=== PATIENT | female | born 1975 | race Caucasian/White ===

== ENCOUNTER 2016-07-23 11:15 | Emergency (ER) | payer MEDICARE, MEDICAID ==
[2016-07-23 11:32] VITALS: BP 135/85
[2016-07-23] MEDS ORDERED: Ondansetron 4 MG/2 ML SDV IVPUSH ONE (11:55)
[2016-07-23] MEDS ORDERED: LORazepam 2 MG/ML MDV IVPUSH ONE (11:55)
--- NOTE | 2016-07-23 11:58 | EDM.PDOC ---
ED HPI ALTERED MENTAL STATUS - General Chief Complaint: Drug or Alcohol Abuse Stated Complaint: BEEN DRINKING PAST 10 DAYS WHISKY Time Seen by Provider: 07/23/16 11:56 Source: Reports: Patient History Limitations: Reports: No limitations - History of Present Illness INITIAL COMMENTS - FREE TEXT/NARRATIVE: Pt hs been drinking fpr the past 10 days about a liter per day. She is vomiting and she fels like she is withdrawing. She last drank last nite. Baseline Mental Status: Reports: alert/oriented, agitated Timing/Duration: Reports: Hour(s):, Getting worse Context: Reports: drug/ETOH abuse - Related Data Allergies/ADRs: Allergies metal Allergy (Uncoded 05/22/14 12:36) Rash Home Meds: Home Meds ALPRAZolam [Xanax] 1.5 mg PO TID 05/22/14 [History] Acetaminophen [Tylenol Arthritis Pain] 650 mg PO Q6HR PRN 05/22/14 [History] Albuterol Sulfate 1.25 mg IH ASDIRECTED PRN 05/22/14 [History] Lala/Cell/Lipas/Malt/Prt/Lac/in [Digestive Enzymes] 1 each PO DAILY 05/22/14 [ History] Cholecalciferol (Vitamin D3) [Vitamin D3] 2,000 unit PO DAILY 05/22/14 [History] ClonazePAM [KlonoPIN] 1 mg PO BEDTIME 05/22/14 [History] Cyanocobalamin (Vitamin B12) [Vitamin B12] 1,000 mcg IJ ASDIRECTED 05/22/14 [ History] Cyclobenzaprine [Flexeril] 10 mg PO Q8HR PRN 05/22/14 [History] FLUoxetine [PROzac] 80 mg PO DAILY 05/22/14 [History] Ferrous Fumarate-Vit J890-550 1 tab PO DAILY 05/22/14 [History] Fluticasone Propionate [Flonase] 1 spray TOP ASDIRECTED PRN 05/22/14 [History] Folic Acid 1 mg PO DAILY 05/22/14 [History] Furosemide [Lasix] 40 mg PO ASDIRECTED 05/22/14 [History] Furosemide [Lasix] 80 mg PO BID 05/22/14 [History] Gabapentin [Neurontin] 1,600 mg PO TID 05/22/14 [History] K-Dur 20meq 1 tab PO DAILY 05/22/14 [History] Meclizine [Antivert] 25 mg PO TID PRN 05/22/14 [History] Mirtazapine [Remeron] 15 mg PO ASDIRECTED PRN 05/22/14 [History] Omeprazole [Prilosec] 40 mg PO DAILY 05/22/14 [History] Polyethylene Glycol 3350 [MiraLAX] 17 gm PO DAILY 05/22/14 [History] Reti-A 0.1% 1 dose TOP BEDTIME 05/22/14 [History] Spironolactone [Aldactone] 100 mg PO DAILY 05/22/14 [History] Sucralfate [Carafate] 0.5 gm PO QID 05/22/14 [History] Thiamine Mononitrate [Vitamin B-1] 100 mg PO BEDTIME 05/22/14 [History] Triamcinolone Acetonide [Kenalog 0.1% Crm] 80 gm .XX ASDIRECTED 05/22/14 [ History] Vitamin B Complex [B Complex] 1 tab PO DAILY 05/22/14 [History] Zolpidem [Ambien] 20 mg PO BEDTIME PRN 05/22/14 [History] buPROPion HCl [Wellbutrin Xl] 300 mg PO DAILY 05/22/14 [History] fentaNYL [Duragesic] 50 mcg TD Q48H 05/22/14 [History] fentaNYL [Duragesic] 100 mcg TD Q48H 05/22/14 [History] lamoTRIgine [Lamictal] 200 mg PO DAILY 05/22/14 [History] oxyCODONE HCl [Oxycodone HCl] 20 mg PO Q6HR PRN 05/22/14 [History] Mirtazapine [Remeron] 30 mg PO BEDTIME 09/25/15 [History] Aspirin 325 mg PO DAILY 07/23/16 [History] Diclofenac Sodium [Voltaren 1% Gel] 1 dose TOP ASDIRECTED 07/23/16 [History] Linaclotide [Linzess] 145 mcg PO DAILY 07/23/16 [History] Sennosides [Senna] 8.6 oz PO DAILY 07/23/16 [History] Past Medical History Cardiovascular History: Reports: Heart Failure Respiratory History: Reports: Asthma Musculoskeletal History: Reports: Fracture Neurological History: Reports: Brain injury, Seizure Psychiatric History: Reports: ADD, Addiction, Bipolar, Depression - Infectious Disease History Infectious Disease History: Reports: Chicken pox, MRSA - Past Surgical History Other Musculoskeletal Surgeries/Procedures:: broken back and hips. Surgery to both. Social & Family History - Tobacco Use Smoking Status *Q: Never Smoker Years of Tobacco use: 25 Second Hand Smoke Exposure: No - Caffeine Use Caffeine Use: Reports: Soda - Alcohol Use Days Per Week of Alcohol Use: 7 Number of Drinks Per Day: 10 Total Drinks Per Week: 70 Date of Last Drink: 07/22/16 - Recreational Drug Use Recreational Drug Use: No ED ROS GENERAL - Review of Systems Review Of Systems: See Below Constitutional: Reports: no symptoms HEENT: Reports: No symptoms Respiratory: Reports: No Symptoms Cardiovascular: Reports: No symptoms Endocrine: Reports: no symptoms GI/Abdominal: Reports: Nausea, Vomiting : Reports: no symptoms Musculoskeletal: Reports: no symptoms Skin: Reports: no symptoms Neurological: Reports: Dizziness - Physical Exam Exam: See Below Text/Narrative:: Pt arrived with admitting to sig withdral from etoh. Exam Limited By: Intoxication General Appearance: alert, anxious, mild distress Ears: normal TMs Nose: normal inspection Throat/Mouth: Normal inspection Head Exam: atraumatic Neck: normal inspection Respiratory/Chest: no respiratory distress Cardiovascular: regular rate, rhythm GI/Abdominal: soft, non tender Rectal (Female) Exam: Deferred Neuro Exam (Abbreviated): alert, oriented, normal cognition Back Exam: normal inspection Extremities: normal inspection Psychiatric: anxious, tearful Course - Vital Signs Last Recorded V/S: Last Vital Signs Temp 37.1 C 07/23/16 11:36 Pulse 124 H 07/23/16 11:36 Resp 17 07/23/16 11:36 BP 135/85 07/23/16 11:36 Pulse Ox 95 07/23/16 11:36 - Orders/Labs/Meds Orders: Active Orders 24 hr Category Date Time Status EKG Documentation Completion [RC] ASDIRECTED Care 07/23/16 11:53 Active Sodium Chloride 0.9% [Normal Saline] 1,000 ml Med 07/23/16 12:00 Active IV ASDIRECTED Sodium Chloride 0.9% [Normal Saline] 1,000 ml Med 07/23/16 12:45 Active IV ASDIRECTED EKG 12 Lead [EK] Routine Ther 07/23/16 11:53 Ordered Medication Orders Sodium Chloride (Normal Saline) 1,000 mls @ 999 mls/hr IV ASDIRECTED [facility] Last Admin: 07/23/16 12:14 Dose: 999 mls/hr Sodium Chloride (Normal Saline) 1,000 mls @ 999 mls/hr IV ASDIRECTED [facility] Labs: Laboratory Tests 07/23/16 07/23/16 07/23/16 Range/Units 12:03 12:03 12:03 WBC 4.8 (4.5-11.0) K/uL RBC 4.55 (3.30-5.50) M/uL Hgb 14.0 (12.0-15.0) g/dL Hct 41.2 (36.0-48.0) % MCV 91 (80-98) fL MCH 31 (27-31) pg MCHC 34 (32-36) % Plt Count 356 (150-400) K/uL Neut % (Auto) 70 H (36-66) % Lymph % (Auto) 21 L (24-44) % Hughes % (Auto) 6 (2-6) % Eos % (Auto) 0 L (2-4) % Baso % (Auto) 3 H (0-1) % Sodium 141 (140-148) mmol/L Potassium 3.6 (3.6-5.2) mmol/L Chloride 96 L (100-108) mmol/L Carbon Dioxide 23 (21-32) mmol/L Anion Gap 25.6 H (5.0-14.0) mmol/L BUN 7 (7-18) mg/dL Creatinine 0.7 (0.6-1.0) mg/dL Est Cr Clr Drug Dosing TNP Estimated GFR (MDRD) > 60 (>60) Glucose 117 H (74-106) mg/dL Calcium 8.7 (8.5-10.1) mg/dL Total Bilirubin 0.5 (0.2-1.0) mg/dL AST 159 H D (15-37) U/L ALT 68 (12-78) U/L Alkaline Phosphatase 269 H D (46-116) U/L Total Protein 7.9 (6.4-8.2) g/dL Albumin 4.2 (3.4-5.0) g/dL Globulin 3.7 H (2.3-3.5) g/dL Albumin/Globulin Ratio 1.1 L (1.2-2.2) Urine Color Urine Appearance Urine pH (4.5-8.0) Ur Specific Martha (1.008-1.030) Urine Protein (NEGATIVE) mg/dL Urine Glucose (UA) (NEGATIVE) mg/dL Urine Ketones (NEGATIVE) mg/dL Urine Occult Blood (NEGATIVE) Urine Nitrite (NEGATIVE) Urine Bilirubin (NEGATIVE) Urine Urobilinogen (NORMAL) mg/dL Ur Leukocyte Esterase (NEGATIVE) Urine RBC (0-5) Urine WBC (0-5) Ur Epithelial Cells Amorphous Sediment Urine Bacteria Urine Mucus Urine Opiates Screen (NEGATIVE) Ur Oxycodone Screen (NEGATIVE) Urine Methadone Screen (NEGATIVE) Ur Propoxyphene Screen (NEGATIVE) Ur Barbiturates Screen (NEGATIVE) Ur Tricyclics Screen (NEGATIVE) Ur Phencyclidine Scrn (NEGATIVE) Ur Amphetamine Screen (NEGATIVE) U Methamphetamines Scrn (NEGATIVE) Urine MDMA Screen (NEGATIVE) U Benzodiazepines Scrn (NEGATIVE) U Cocaine Metab Screen (NEGATIVE) U Marijuana (THC) Screen (NEGATIVE) Ethyl Alcohol 175 mg/dL 07/23/16 07/23/16 Range/Units 12:22 12:22 WBC (4.5-11.0) K/uL RBC (3.30-5.50) M/uL Hgb (12.0-15.0) g/dL Hct (36.0-48.0) % MCV (80-98) fL MCH (27-31) pg MCHC (32-36) % Plt Count (150-400) K/uL Neut % (Auto) (36-66) % Lymph % (Auto) (24-44) % Hughes % (Auto) (2-6) % Eos % (Auto) (2-4) % Baso % (Auto) (0-1) % Sodium (140-148) mmol/L Potassium (3.6-5.2) mmol/L Chloride (100-108) mmol/L Carbon Dioxide (21-32) mmol/L Anion Gap (5.0-14.0) mmol/L BUN (7-18) mg/dL Creatinine (0.6-1.0) mg/dL Est Cr Clr Drug Dosing Estimated GFR (MDRD) (>60) Glucose (74-106) mg/dL Calcium (8.5-10.1) mg/dL Total Bilirubin (0.2-1.0) mg/dL AST (15-37) U/L ALT (12-78) U/L Alkaline Phosphatase (46-116) U/L Total Protein (6.4-8.2) g/dL Albumin (3.4-5.0) g/dL Globulin (2.3-3.5) g/dL Albumin/Globulin Ratio (1.2-2.2) Urine Color Yellow Urine Appearance Clear Urine pH 5.0 (4.5-8.0) Ur Specific Martha 1.020 (1.008-1.030) Urine Protein 30 H (NEGATIVE) mg/dL Urine Glucose (UA) Normal (NEGATIVE) mg/dL Urine Ketones 150 H (NEGATIVE) mg/dL Urine Occult Blood Moderate (NEGATIVE) Urine Nitrite Negative (NEGATIVE) Urine Bilirubin Negative (NEGATIVE) Urine Urobilinogen Normal (NORMAL) mg/dL Ur Leukocyte Esterase Negative (NEGATIVE) Urine RBC 0-5 (0-5) Urine WBC 0-5 (0-5) Ur Epithelial Cells Moderate Amorphous Sediment Not seen Urine Bacteria Rare Urine Mucus Moderate Urine Opiates Screen Negative (NEGATIVE) Ur Oxycodone Screen Positive H (NEGATIVE) Urine Methadone Screen Negative (NEGATIVE) Ur Propoxyphene Screen Negative (NEGATIVE) Ur Barbiturates Screen Negative (NEGATIVE) Ur Tricyclics Screen Negative (NEGATIVE) Ur Phencyclidine Scrn Negative (NEGATIVE) Ur Amphetamine Screen Negative (NEGATIVE) U Methamphetamines Scrn Negative (NEGATIVE) Urine MDMA Screen Negative (NEGATIVE) U Benzodiazepines Scrn Positive H (NEGATIVE) U Cocaine Metab Screen Negative (NEGATIVE) U Marijuana (THC) Screen Negative (NEGATIVE) Ethyl Alcohol mg/dL Meds: Medications Generic Name Dose Route Start Last Admin Trade Name Freq PRN Reason Stop Dose Admin Sodium Chloride 1,000 mls @ 999 mls/hr 07/23/16 12:00 07/23/16 12:14 Normal Saline IV 999 mls/hr ASDIRECTED DANILO Administration Sodium Chloride 1,000 mls @ 999 mls/hr 07/23/16 12:45 Normal Saline IV ASDIRECTED DANILO Discontinued Medications Generic Name Dose Route Start Last Admin Trade Name Freq PRN Reason Stop Dose Admin Lorazepam 1 mg 07/23/16 11:55 07/23/16 12:10 Ativan IVPUSH 07/23/16 11:56 1 mg ONETIME ONE Administration Ondansetron HCl 4 mg 07/23/16 11:55 07/23/16 12:13 Zofran IVPUSH 07/23/16 11:56 4 mg ONETIME ONE Administration - Re-Assessments/Exams Free Text/Narrative Re-Assessment/Exam: 07/23/16 13:32 pt was given 2 liters of fluid, ativan 1 mg, zoforan 4 mg. She is feeling better. She does not want to go to detox. Departure - Departure Time of Disposition: 13:33 Disposition: Home, Self-Care 01 Condition: fair Clinical Impression: ETOH abuse Forms: ED Department Discharge Care Plan Goals: push fluids, zoforan 4 mg q6h prn for nausea, ativan 1 mg q6h prn for agitation # 8. Rtc if problems. - My Orders Last 24 Hours: My Active Orders 07/23/16 11:53 EKG Documentation Completion [RC] ASDIRECTED EKG 12 Lead [EK] Routine 07/23/16 12:00 Sodium Chloride 0.9% [Normal Saline] 1,000 ml IV ASDIRECTED 07/23/16 12:45 Sodium Chloride 0.9% [Normal Saline] 1,000 ml IV ASDIRECTED - Assessment/Plan Last 24 Hours: My Active Orders 07/23/16 11:53 EKG Documentation Completion [RC] ASDIRECTED EKG 12 Lead [EK] Routine 07/23/16 12:00 Sodium Chloride 0.9% [Normal Saline] 1,000 ml IV ASDIRECTED 07/23/16 12:45 Sodium Chloride 0.9% [Normal Saline] 1,000 ml IV ASDIRECTED
[2016-07-23] MEDS ORDERED: Sodium Chloride 0.9% 1,000 ML IV SCH ×2 (12:00→12:45)
== END 2016-07-23 13:49 | disposition home or self-care (01) ==
LOC: JP.ED 11:15
DX: F10.10 Alcohol abuse, uncomplicated (principal); I50.9 Heart failure, unspecified; J45.909 Unspecified asthma, uncomplicated; F32.9 Major depressive disorder, single episode, unspecified; F31.9 Bipolar disorder, unspecified; Z98.890 Other specified postprocedural states; Z79.82 Long term (current) use of aspirin; Z79.899 Other long term (current) drug therapy; Z91.048 Other nonmedicinal substance allergy status; Y90.6 Blood alcohol level of 120-199 mg/100 ml
CPT/HCPCS: 36415; 80053; 80305; 81001; 85025; 93005; 93010; 96361; 96374; 96375; 99284; G0480; J2060; J2405; J7040

== ENCOUNTER 2016-10-25 17:34 | Inpatient (IN) | payer MEDICARE, MEDICAID ==
[2016-10-25] MEDS ORDERED: Ketorolac 30 MG/ML SDV IVPUSH ONE (18:04)
[2016-10-25] MEDS ORDERED: Sodium Chloride 0.9% 10 ML Syringe FLUSH PRN ×2 (18:04→18:47)
[2016-10-25] MEDS ORDERED: Ondansetron 4 MG/2 ML SDV IVPUSH ONE ×2 (18:07→20:24)
[2016-10-25] MEDS ORDERED: Iopamidol 612 MG/ML 100 ML Bottle IV PRN (18:47)
[2016-10-25] MEDS ORDERED: Sodium Chloride 0.9% 100 ML IV SCH (19:00)
[2016-10-25] MEDS ORDERED: Sodium Chloride 0.9% 1,000 ML IV ONE (19:29)
[2016-10-25] MEDS ORDERED: HYDROmorphone 1 MG/ML Syringe IVPUSH ONE (19:38)
--- NOTE | 2016-10-25 20:32 | EDM.PDOC ---
ED HPI GENERAL MEDICAL PROBLEM - General Chief Complaint: Gastrointestinal Problem Stated Complaint: NAUSEA,VOMITING,DIARRHEA Time Seen by Provider: 10/25/16 19:30 Source of Information: Reports: Patient History Limitations: Reports: No Limitations - History of Present Illness INITIAL COMMENTS - FREE TEXT/NARRATIVE: Heather is a 41 year old female who presents to the ED today with c/o increasing abdominal pain, nausea and vomiting. I saw this patient this morning, she presented with milder symptoms was treated with IV fluids, zofran and toradol, reported she felt much better and was discharged home. Blood work this morning showed a normal white count. Patient reports that she felt better until about an hour after she got home at which time she had worsening upper abdominal pain and worsening nausea/vomiting. Patient continues to deny fever. Patient has issues with chronic pain and is on large amounts of Oxycodone daily as well as Fentanyl patches. Abdomen Pain Score (Numeric/FACES): 8 - Related Data Allergies Allergy/AdvReac Type Severity Reaction Status Date / Time metal Allergy Rash Uncoded 10/25/16 17:56 Home Meds: Home Meds ALPRAZolam [Xanax] 1.5 mg PO TID 05/22/14 [History] Acetaminophen [Tylenol Arthritis Pain] 650 mg PO Q6HR PRN 05/22/14 [History] Albuterol Sulfate 1.25 mg IH ASDIRECTED PRN 05/22/14 [History] Lala/Cell/Lipas/Malt/Prt/Lac/in [Digestive Enzymes] 1 each PO DAILY 05/22/14 [ History] Cholecalciferol (Vitamin D3) [Vitamin D3] 2,000 unit PO DAILY 05/22/14 [History] ClonazePAM [KlonoPIN] 1 mg PO BEDTIME 05/22/14 [History] Cyanocobalamin (Vitamin B12) [Vitamin B12] 1,000 mcg IJ ASDIRECTED 05/22/14 [ History] Cyclobenzaprine [Flexeril] 10 mg PO Q8HR PRN 05/22/14 [History] FLUoxetine [PROzac] 80 mg PO DAILY 05/22/14 [History] Ferrous Fumarate-Vit L121-086 1 tab PO DAILY 05/22/14 [History] Fluticasone Propionate [Flonase] 1 spray TOP ASDIRECTED PRN 05/22/14 [History] Folic Acid 1 mg PO DAILY 05/22/14 [History] Furosemide [Lasix] 40 mg PO ASDIRECTED 05/22/14 [History] Furosemide [Lasix] 80 mg PO BID 05/22/14 [History] Gabapentin [Neurontin] 1,600 mg PO TID 05/22/14 [History] K-Dur 20meq 1 tab PO DAILY 05/22/14 [History] Meclizine [Antivert] 25 mg PO TID PRN 05/22/14 [History] Mirtazapine [Remeron] 15 mg PO ASDIRECTED PRN 05/22/14 [History] Omeprazole [Prilosec] 40 mg PO DAILY 05/22/14 [History] Polyethylene Glycol 3350 [MiraLAX] 17 gm PO DAILY 05/22/14 [History] Reti-A 0.1% 1 dose TOP BEDTIME 05/22/14 [History] Spironolactone [Aldactone] 100 mg PO DAILY 05/22/14 [History] Sucralfate [Carafate] 0.5 gm PO QID 05/22/14 [History] Thiamine Mononitrate [Vitamin B-1] 100 mg PO BEDTIME 05/22/14 [History] Triamcinolone Acetonide [Kenalog 0.1% Crm] 80 gm .XX ASDIRECTED 05/22/14 [ History] Vitamin B Complex [B Complex] 1 tab PO DAILY 05/22/14 [History] Zolpidem [Ambien] 20 mg PO BEDTIME PRN 05/22/14 [History] buPROPion HCl [Wellbutrin Xl] 300 mg PO DAILY 05/22/14 [History] fentaNYL [Duragesic] 50 mcg TD Q48H 05/22/14 [History] fentaNYL [Duragesic] 100 mcg TD Q48H 05/22/14 [History] lamoTRIgine [Lamictal] 200 mg PO DAILY 05/22/14 [History] oxyCODONE HCl [Oxycodone HCl] 20 mg PO Q6HR PRN 05/22/14 [History] Mirtazapine [Remeron] 30 mg PO BEDTIME 09/25/15 [History] Aspirin 325 mg PO DAILY 07/23/16 [History] Diclofenac Sodium [Voltaren 1% Gel] 1 dose TOP ASDIRECTED 07/23/16 [History] Linaclotide [Linzess] 145 mcg PO DAILY 07/23/16 [History] Sennosides [Senna] 8.6 oz PO DAILY 07/23/16 [History] Past Medical History Cardiovascular History: Reports: Heart Failure Respiratory History: Reports: Asthma 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 History: Reports: Renal Calculus [employer]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 Surgery to both. Social & Family History - Tobacco Use Smoking Status *Q: Former Smoker Years of Tobacco use: 25 Used Tobacco, but Quit: Yes Month Tobacco Last Used: 5 years Second Hand Smoke Exposure: No - Caffeine Use Caffeine Use: Reports: Soda - Alcohol Use Days Per Week of Alcohol Use: 7 Number of Drinks Per Day: 10 Total Drinks Per Week: 70 - Recreational Drug Use Recreational Drug Use: No ED ROS GENERAL - Review of Systems Review Of Systems: See Below Constitutional: Reports: Decreased Appetite HEENT: Reports: No Symptoms Respiratory: Reports: No Symptoms Cardiovascular: Reports: No Symptoms Endocrine: Reports: No Symptoms GI/Abdominal: Reports: Abdominal Pain, Nausea, Vomiting : Reports: No Symptoms Musculoskeletal: Reports: No Symptoms Skin: Reports: No Symptoms Neurological: Reports: No Symptoms ED EXAM, GI/ABD - Physical Exam Exam: See Below Exam Limited By: No Limitations General Appearance: Alert, WD/WN, Moderate Distress Throat/Mouth: Normal Oropharynx Head: Atraumatic Neck: Normal Inspection Respiratory/Chest: No Respiratory Distress, Lungs Clear Cardiovascular: No Murmur, Tachycardia GI/Abdominal: Normal Bowel Sounds, Soft, Tenderness, Other (Mid abdominal tenderness on exam) Extremities: Normal Inspection. No: Increased Warmth Neurological: Alert, Oriented Psychiatric: Anxious, Tearful Skin Exam: Warm, Dry, Intact Course - Vital Signs Text/Narrative:: Heather is a 41 year old female who presents to the ED today with c/o worsening abdominal pain, nausea and vomiting since leaving here earlier today. Please refer to HPI and focused exam as well as prior ED visit. PIV re-established, blood work obtained, CT scan obtained. CT scan shows an acute pancreatitis, confirmed with lipase of 1037. White count continues to be normal. Potassium mildly low at 3.2. Amylase mildly elevated at 119. Patient was given IV dilaudid for pain, additional zofran for nausea, she will be admitted for ongoing pain control to observation, discussed with JENN Davies who has agreed to admit patient, patient updated on findings and plan of care and is in agreement. Patient will be admitted in stable condition. Last Recorded V/S: Last Vital Signs Temp 36.8 C 10/25/16 17:54 Pulse 109 H 10/25/16 17:54 Resp 16 10/25/16 17:54 BP 150/96 H 10/25/16 17:54 Pulse Ox 96 10/25/16 17:54 - Orders/Labs/Meds Orders: Active Orders 24 hr Category Date Time Status Peripheral IV Care [RC] . DIRECTED Care 10/25/16 18:04 Active Abdomen Pelvis w Cont [CT] Stat Exams 10/25/16 18:07 Taken DRUG SCREEN, URINE [URCHEM] Stat Lab 10/25/16 20:00 Uncollected UA W/MICROSCOPIC [URIN] Urgent Lab 10/25/16 20:00 Uncollected Iopamidol [Isovue-300 (61%)] Med 10/25/16 18:47 Active 100 ml IV . DIRECTED PRN Sodium Chloride 0.9% [Normal Saline] 1,000 ml Med 10/25/16 19:29 Active IV .BOLUS Sodium Chloride 0.9% [Normal Saline] 100 ml Med 10/25/16 19:00 Active IV ASDIRECTED Sodium Chloride 0.9% [Saline Flush] Med 10/25/16 18:04 Active 10 ml FLUSH ASDIRECTED PRN Sodium Chloride 0.9% [Saline Flush] Med 10/25/16 18:47 Active 10 ml FLUSH ASDIRECTED PRN Peripheral IV Insertion Adult [OM.PC] Routine Oth 10/25/16 18:04 Ordered Medication Orders Sodium Chloride (Normal Saline) 100 mls @ 3.5 mls/sec IV ASDIRECTED DANILO Last Admin: 10/25/16 19:03 Dose: 3.5 mls/sec Sodium Chloride (Normal Saline) 1,000 mls @ 999 mls/hr IV .BOLUS ONE Stop: 10/25/16 20:29 Iopamidol (Isovue-300 (61%)) 100 ml IV . DIRECTED PRN PRN Reason: RADIOLOGY EXAM Stop: 10/26/16 18:48 Last Admin: 10/25/16 19:03 Dose: 100 ml Sodium Chloride (Saline Flush) 10 ml FLUSH ASDIRECTED PRN PRN Reason: Keep Vein Open Last Admin: 10/25/16 18:25 Dose: 10 ml Sodium Chloride (Saline Flush) 10 ml FLUSH ASDIRECTED PRN PRN Reason: Keep Vein Open Stop: 10/25/16 23:00 Last Admin: 10/25/16 19:02 Dose: 10 ml Labs: Laboratory Tests 10/25/16 10/25/16 10/25/16 Range/Units 19:58 19:58 19:58 WBC 10.7 (4.5-11.0) K/uL RBC 4.21 (3.30-5.50) M/uL Hgb 13.3 (12.0-15.0) g/dL Hct 39.6 (36.0-48.0) % MCV 94 (80-98) fL MCH 32 H (27-31) pg MCHC 34 (32-36) % Plt Count 314 (150-400) K/uL Neut % (Auto) 78 H (36-66) % Lymph % (Auto) 16 L (24-44) % Montague % (Auto) 4 (2-6) % Eos % (Auto) 1 L (2-4) % Baso % (Auto) 1 (0-1) % Sodium 134 L (140-148) mmol/L Potassium 3.2 L (3.6-5.2) mmol/L Chloride 97 L (100-108) mmol/L Carbon Dioxide 30 (21-32) mmol/L Anion Gap 10.2 (5.0-14.0) mmol/L BUN 7 (7-18) mg/dL Creatinine 0.6 (0.6-1.0) mg/dL Est Cr Clr Drug Dosing 113.80 mL/min Estimated GFR (MDRD) > 60 (>60) Glucose 77 (74-106) mg/dL Calcium 9.0 (8.5-10.1) mg/dL Total Bilirubin 0.8 (0.2-1.0) mg/dL AST 107 H (15-37) U/L ALT 69 (12-78) U/L Alkaline Phosphatase 286 H (46-116) U/L Total Protein 6.6 (6.4-8.2) g/dL Albumin 3.4 (3.4-5.0) g/dL Globulin 3.2 (2.3-3.5) g/dL Albumin/Globulin Ratio 1.1 L (1.2-2.2) Amylase (25-115) U/L Lipase 1037 H (73-393) U/L Ethyl Alcohol mg/dL 10/25/16 10/25/16 Range/Units 20:04 20:04 WBC (4.5-11.0) K/uL RBC (3.30-5.50) M/uL Hgb (12.0-15.0) g/dL Hct (36.0-48.0) % MCV (80-98) fL MCH (27-31) pg MCHC (32-36) % Plt Count (150-400) K/uL Neut % (Auto) (36-66) % Lymph % (Auto) (24-44) % Montague % (Auto) (2-6) % Eos % (Auto) (2-4) % Baso % (Auto) (0-1) % Sodium (140-148) mmol/L Potassium (3.6-5.2) mmol/L Chloride (100-108) mmol/L Carbon Dioxide (21-32) mmol/L Anion Gap (5.0-14.0) mmol/L BUN (7-18) mg/dL Creatinine (0.6-1.0) mg/dL Est Cr Clr Drug Dosing mL/min Estimated GFR (MDRD) (>60) Glucose (74-106) mg/dL Calcium (8.5-10.1) mg/dL Total Bilirubin (0.2-1.0) mg/dL AST (15-37) U/L ALT (12-78) U/L Alkaline Phosphatase (46-116) U/L Total Protein (6.4-8.2) g/dL Albumin (3.4-5.0) g/dL Globulin (2.3-3.5) g/dL Albumin/Globulin Ratio (1.2-2.2) Amylase 119 H (25-115) U/L Lipase (73-393) U/L Ethyl Alcohol 3 mg/dL Meds: Medications Generic Name Dose Route Start Last Admin Trade Name Freq PRN Reason Stop Dose Admin Sodium Chloride 100 mls @ 3.5 mls/sec 10/25/16 19:00 10/25/16 19:03 Normal Saline IV 3.5 mls/sec ASDIRECTED DANILO Administration Sodium Chloride 1,000 mls @ 999 mls/hr 10/25/16 19:29 Normal Saline IV 10/25/16 20:29 .BOLUS ONE Iopamidol 100 ml 10/25/16 18:47 10/25/16 19:03 Isovue-300 (61%) IV 10/26/16 18:48 100 ml . DIRECTED PRN Administration RADIOLOGY EXAM Sodium Chloride 10 ml 10/25/16 18:04 10/25/16 18:25 Saline Flush FLUSH 10 ml ASDIRECTED PRN Administration Keep Vein Open Sodium Chloride 10 ml 10/25/16 18:47 10/25/16 19:02 Saline Flush FLUSH 10/25/16 23:00 10 ml ASDIRECTED PRN Administration Keep Vein Open Discontinued Medications Generic Name Dose Route Start Last Admin Trade Name Joeq PRN Reason Stop Dose Admin Hydromorphone HCl 1 mg 10/25/16 19:38 Dilaudid IVPUSH 10/25/16 19:39 ONETIME ONE Ketorolac Tromethamine 30 mg 10/25/16 18:04 10/25/16 18:34 Toradol IVPUSH 10/25/16 18:05 30 mg ONETIME ONE Administration Ondansetron HCl 4 mg 10/25/16 18:07 10/25/16 18:34 Zofran IVPUSH 10/25/16 18:08 4 mg ONETIME ONE Administration Ondansetron HCl 4 mg 10/25/16 20:24 Zofran IVPUSH 10/25/16 20:25 ONETIME ONE Departure - Departure Time of Disposition: 20:45 Disposition: Admitted As Inpatient 64 Condition: Good Clinical Impression: Pancreatitis Qualifiers: Chronicity: acute Pancreatitis type: unspecified pancreatitis type Acute pancreatitis complication: no infection or necrosis Qualified Code(s): K85.90 - Acute pancreatitis without necrosis or infection, unspecified - Discharge Information Forms: ED Department Discharge - My Orders Last 24 Hours: My Active Orders 10/25/16 18:04 Peripheral IV Care [RC] . DIRECTED Sodium Chloride 0.9% [Saline Flush] 10 ml FLUSH ASDIRECTED PRN Peripheral IV Insertion Adult [OM.PC] Routine 10/25/16 18:07 Abdomen Pelvis w Cont [CT] Stat 10/25/16 18:47 Iopamidol [Isovue-300 (61%)] 100 ml IV . DIRECTED PRN Sodium Chloride 0.9% [Saline Flush] 10 ml FLUSH ASDIRECTED PRN 10/25/16 19:00 Sodium Chloride 0.9% [Normal Saline] 100 ml IV ASDIRECTED 10/25/16 19:29 Sodium Chloride 0.9% [Normal Saline] 1,000 ml IV .BOLUS - Assessment/Plan Last 24 Hours: My Active Orders 10/25/16 18:04 Peripheral IV Care [RC] . DIRECTED Sodium Chloride 0.9% [Saline Flush] 10 ml FLUSH ASDIRECTED PRN Peripheral IV Insertion Adult [OM.PC] Routine 10/25/16 18:07 Abdomen Pelvis w Cont [CT] Stat 10/25/16 18:47 Iopamidol [Isovue-300 (61%)] 100 ml IV . DIRECTED PRN Sodium Chloride 0.9% [Saline Flush] 10 ml FLUSH ASDIRECTED PRN 10/25/16 19:00 Sodium Chloride 0.9% [Normal Saline] 100 ml IV ASDIRECTED 10/25/16 19:29 Sodium Chloride 0.9% [Normal Saline] 1,000 ml IV .BOLUS
[2016-10-25] MEDS ORDERED: HYDROmorphone/Normal Saline 15 MG/30 ML PCA IV ONE (21:06)
[2016-10-25] MEDS ORDERED: Albuterol 0.083% 2.5 MG/3 ML Neb Soln NEB PRN (21:59)
[2016-10-25] MEDS ORDERED: Naloxone 0.4 MG/ML SDV IVPUSH PRN (21:59)
[2016-10-25] MEDS ORDERED: Albuterol/Ipratropium 3.0-0.5 MG/3 ML Neb Soln NEB PRN (21:59)
--- NOTE | 2016-10-25 22:00 | PCM.HP ---
H&P History of Present Illness - General Date of Service: 10/25/16 Admit Problem/Dx: Admission Diagnosis/Problem Admission Diagnosis/Problem Acute pancreatitis Source of Information: Patient, Family (Suman Wednesday, [place]) History Limitations: Reports: No Limitations - History of Present Illness Initial Comments - Free Text/Narative: - History of Present Illness INITIAL COMMENTS - FREE TEXT/NARRATIVE: Heather is a 41 year old female who presents to the ED today with c/o increasing abdominal pain, nausea and vomiting. She was seen 2 times today in ER, she presented with milder symptoms was treated with IV fluids, zofran and toradol, reported she felt much better and was discharged home. Blood work this morning showed a normal white count. Patient reports that she felt better until about an hour after she got home at which time she had worsening upper abdominal pain and worsening nausea/vomiting. Patient continues to deny fever. Patient has issues with chronic pain and is on large amounts of Oxycodone daily as well as Fentanyl patches. Abdomen Pain Score (Numeric/FACES): 8 Onset of Symptoms: Reports: Gradual Duration of Symptoms: Reports: Constant, Getting Worse Location: Reports: Abdomen Severity: Severe (pain not controlled with chronic pain medication.) Improves with: Reports: None Worsens with: Reports: Eating (nausea, abdomen worsen with eating) Context: Reports: Other (chronically ill) Abdomen Pain Score (Numeric/FACES): 8 - Related Data Allergies/Adverse Reactions: Allergies Allergy/AdvReac Type Severity Reaction Status Date / Time metal Allergy Rash Uncoded 10/25/16 17:56 Home Medications: Home Meds ALPRAZolam [Xanax] 1.5 mg PO TID 05/22/14 [History] Acetaminophen [Tylenol Arthritis Pain] 650 mg PO Q6HR PRN 05/22/14 [History] Albuterol Sulfate 1.25 mg IH ASDIRECTED PRN 05/22/14 [History] Lala/Cell/Lipas/Malt/Prt/Lac/in [Digestive Enzymes] 1 each PO DAILY 05/22/14 [ History] Cholecalciferol (Vitamin D3) [Vitamin D3] 2,000 unit PO DAILY 05/22/14 [History] ClonazePAM [KlonoPIN] 1 mg PO BEDTIME 05/22/14 [History] Cyanocobalamin (Vitamin B12) [Vitamin B12] 1,000 mcg IJ ASDIRECTED 05/22/14 [ History] Cyclobenzaprine [Flexeril] 10 mg PO Q8HR PRN 05/22/14 [History] FLUoxetine [PROzac] 80 mg PO DAILY 05/22/14 [History] Ferrous Fumarate-Vit V084-813 1 tab PO DAILY 05/22/14 [History] Fluticasone Propionate [Flonase] 1 spray TOP ASDIRECTED PRN 05/22/14 [History] Folic Acid 1 mg PO DAILY 05/22/14 [History] Furosemide [Lasix] 40 mg PO ASDIRECTED 05/22/14 [History] Furosemide [Lasix] 80 mg PO BID 05/22/14 [History] Gabapentin [Neurontin] 1,600 mg PO TID 05/22/14 [History] K-Dur 20meq 1 tab PO DAILY 05/22/14 [History] Meclizine [Antivert] 25 mg PO TID PRN 05/22/14 [History] Mirtazapine [Remeron] 15 mg PO ASDIRECTED PRN 05/22/14 [History] Omeprazole [Prilosec] 40 mg PO DAILY 05/22/14 [History] Polyethylene Glycol 3350 [MiraLAX] 17 gm PO DAILY 05/22/14 [History] Reti-A 0.1% 1 dose TOP BEDTIME 05/22/14 [History] Spironolactone [Aldactone] 100 mg PO DAILY 05/22/14 [History] Sucralfate [Carafate] 0.5 gm PO QID 05/22/14 [History] Thiamine Mononitrate [Vitamin B-1] 100 mg PO BEDTIME 05/22/14 [History] Triamcinolone Acetonide [Kenalog 0.1% Crm] 80 gm .XX ASDIRECTED 05/22/14 [ History] Vitamin B Complex [B Complex] 1 tab PO DAILY 05/22/14 [History] Zolpidem [Ambien] 20 mg PO BEDTIME PRN 05/22/14 [History] buPROPion HCl [Wellbutrin Xl] 300 mg PO DAILY 05/22/14 [History] fentaNYL [Duragesic] 50 mcg TD Q48H 05/22/14 [History] fentaNYL [Duragesic] 100 mcg TD Q48H 05/22/14 [History] lamoTRIgine [Lamictal] 200 mg PO DAILY 05/22/14 [History] oxyCODONE HCl [Oxycodone HCl] 20 mg PO Q6HR PRN 05/22/14 [History] Mirtazapine [Remeron] 30 mg PO BEDTIME 09/25/15 [History] Aspirin 325 mg PO DAILY 07/23/16 [History] Diclofenac Sodium [Voltaren 1% Gel] 1 dose TOP ASDIRECTED 07/23/16 [History] Linaclotide [Linzess] 145 mcg PO DAILY 07/23/16 [History] Sennosides [Senna] 8.6 oz PO DAILY 07/23/16 [History] Past Medical History Cardiovascular History: Reports: Heart Failure Respiratory History: Reports: Asthma 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 History: Reports: Renal Calculus 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 Surgery to both. Social & Family History - Tobacco Use Smoking Status *Q: Former Smoker Years of Tobacco use: 25 Used Tobacco, but Quit: Yes Month Tobacco Last Used: 5 years Second Hand Smoke Exposure: No - Caffeine Use Caffeine Use: Reports: Soda - Alcohol Use Days Per Week of Alcohol Use: 7 Number of Drinks Per Day: 10 Total Drinks Per Week: 70 - Recreational Drug Use Recreational Drug Use: No H&P Review of Systems - Review of Systems: Review Of Systems: See Below General: Reports: Malaise, Decreased Appetite HEENT: Reports: Glasses Pulmonary: Reports: Shortness of Breath (chronic per patient due to CHF) Cardiovascular: Reports: Dyspnea on Exertion, Orthopnea Gastrointestinal: Reports: Abdominal Pain, Constipation, Nausea 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: Reports: No Symptoms Musculoskeletal: Reports: Back Pain Skin: Reports: No Symptoms Psychiatric: Reports: No Symptoms Neurological: Reports: No Symptoms Hematologic/Lymphatic: Reports: No Symptoms Immunologic: Reports: No Symptoms Exam - Exam Exam: See Below - Vital Signs Vital Signs: Last Vital Signs Temp 38.1 C 10/25/16 21:43 Pulse 104 H 10/25/16 21:43 Resp 14 10/25/16 21:43 BP 125/77 10/25/16 21:43 Pulse Ox 99 10/25/16 21:43 Weight: 72.575 kg - Exam General: Alert, Oriented, Cooperative, Mild Distress HEENT: PERRLA, Conjunctiva Clear, EACs Clear, EOMI, Hearing Intact, Nares Patent , TMs Clear, Glasses, Other (mouth dry) Neck: Supple, Trachea Midline, Lymphadenopathy Lungs: Normal Respiratory Effort Cardiovascular: Regular Rhythm, Normal S1, Normal S2 Abdomen: Tenderness (epigastric and left abdomen radiates to back), Hypoactive Bowel Sounds (Female) Exam: Deferred Rectal (Female) Exam: Deferred Back Exam: Normal Inspection, Full Range of Motion Extremities: Normal Inspection, Other (left hip; 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) Skin: Warm, Dry, Intact Neurological: Cranial Nerves Intact, Reflexes Equal Bilateral Neuro Extensive - Mental Status: Alert, Oriented x3, Normal Mood/Affect, Normal Cognition Neuro Extensive - Motor, Sensory, Reflexes: Motor/Sensory Deficits (left hip and right foot; chronic pain) Psychiatric: Alert, Normal Affect, Normal Mood - Patient Data Result Diagrams: 10/25/16 19:58 10/25/16 19:58 *Q Meaningful Use (ADM) - VTE *Q VTE Criteria *Q: - Stroke *Q Stroke Criteria *Q: - AMI *Q AMI Criteria *Q: - Problem List (1) Chronic pain SNOMED Code(s): 33818930 ICD Code: G89.29 - OTHER CHRONIC PAIN Status: Acute Priority: High Current Visit: Yes Qualifiers: Chronic pain type: other chronic pain Qualified Code(s): G89.29 - Other chronic pain (2) Pancreatitis SNOMED Code(s): 70777071 ICD Code: K85.90 - ACUTE PANCREATITIS WITHOUT NECROSIS OR INFECTION, UNSP Status: Acute Current Visit: Yes Qualifiers: Chronicity: acute Pancreatitis type: unspecified pancreatitis type Acute pancreatitis complication: no infection or necrosis Qualified Code(s): K85.90 - Acute pancreatitis without necrosis or infection, unspecified (3) CHF (congestive heart failure) SNOMED Code(s): 60979413 ICD Code: I50.9 - HEART FAILURE, UNSPECIFIED Status: Acute Current Visit : Yes Qualifiers: Congestive heart failure type: unspecified congestive heart failure type Congestive heart failure chronicity: chronic Qualified Code(s): I50.9 - Heart failure, unspecified (4) History of MRSA infection SNOMED Code(s): 988141936, 442641478 ICD Code: Z86.14 - PERSONAL HISTORY OF METHICILLIN RESIS STAPH INFECTION Status: Acute Priority: Medium Current Visit: Yes Problem List Initiated/Reviewed/Updated: Yes Orders Last 24hrs: Active Orders 24 hr Category Date Time Status Patient Status Manage Transfer [TRANSFER] Routine ADT 10/25/16 21:28 Active Resuscitation Status Routine Resus Stat 10/25/16 21:30 Ordered Medication Orders Sodium Chloride (Normal Saline) 100 mls @ 3.5 mls/sec IV ASDIRECTED DANILO Last Admin: 10/25/16 19:03 Dose: 3.5 mls/sec Iopamidol (Isovue-300 (61%)) 100 ml IV . DIRECTED PRN PRN Reason: RADIOLOGY EXAM Stop: 10/26/16 18:48 Last Admin: 10/25/16 19:03 Dose: 100 ml Sodium Chloride (Saline Flush) 10 ml FLUSH ASDIRECTED PRN PRN Reason: Keep Vein Open Last Admin: 10/25/16 18:25 Dose: 10 ml Sodium Chloride (Saline Flush) 10 ml FLUSH ASDIRECTED PRN PRN Reason: Keep Vein Open Stop: 10/25/16 23:00 Last Admin: 10/25/16 19:02 Dose: 10 ml Assessment/Plan Comment:: Assessment/Plan Comment: - History of Present Illness INITIAL COMMENTS - FREE TEXT/NARRATIVE: Heather is a 41 year old female who presents to the ED today with c/o increasing abdominal pain, nausea and vomiting. Patient was seen x2 in ER today.this morning, she presented with milder symptoms was treated with IV fluids, zofran and toradol, reported she felt much better and was discharged home. Blood work this morning showed a normal white count. Patient reports that she felt better until about an hour after she got home at which time she had worsening upper abdominal pain and worsening nausea/vomiting. Patient continues to deny fever. Patient has issues with chronic pain and is on large amounts of Oxycodone daily, Xanax, Ambien, Restoril, as well as Fentanyl patches. 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 At the time of this admission I do not reasonably expected evaluation and management of this problem will require more than a 96 hour hospital stay. DISPOSITION-anticipate discharge to home after the hospital stay. PRIMARY CARE PROVIDER- Dr. Whalen
[2016-10-25] MEDS: HYDROmorphone/Normal Saline 15 MG/30 ML PCA IV PRN (22:25)
[2016-10-25] MEDS: Sodium Chloride 0.9% 1,000 ML IV SCH (23:12)
[2016-10-25] MEDS: Pantoprazole 40 MG Vial IV SCH (23:24)
[2016-10-25] MEDS: Ondansetron 4 MG Tab.DIS PO PRN (23:24)
[2016-10-26] MEDS: LORazepam 2 MG/ML MDV IV PRN ×2 (01:09→19:44)
[2016-10-26] MEDS: Ondansetron 4 MG/2 ML SDV IVPUSH PRN ×3 (04:16→17:05)
[2016-10-26] MEDS: Sodium Chloride 0.9% 1,000 ML IV SCH ×3 (05:55→21:56)
[2016-10-26] MEDS: Ketorolac 30 MG/ML SDV IVPUSH PRN ×3 (07:07→19:11)
[2016-10-26] MEDS: Potassium Chloride 20 MEQ, Lidocaine 1% 2 ML in Sodium Chloride 0.9% 100 ML IV SCH ×2 (08:49→11:12)
[2016-10-26] MEDS: Enoxaparin 30 MG/0.3 ML Syringe SUBCUT SCH (08:53)
[2016-10-26] MEDS: Folic Acid 1 MG Tab PO SCH (08:54)
[2016-10-26] MEDS: Spironolactone 25 MG Tab PO SCH (08:54)
[2016-10-26] MEDS: buPROPion 150 MG Tab.ER PO SCH (08:54)
[2016-10-26] MEDS: Potassium Chloride 20 MEQ Tab.ER PO SCH (08:54)
[2016-10-26] MEDS: FLUoxetine 20 MG Cap PO SCH (08:54)
[2016-10-26] MEDS: Bisacodyl 5 MG Tab PO SCH (08:54)
[2016-10-26] MEDS: lamoTRIgine 100 MG Tab PO SCH (08:54)
[2016-10-26] MEDS: Furosemide 80 MG Tab PO SCH ×2 (08:55→14:13)
[2016-10-26] MEDS: FENTANYL PATCH CHECK TOP SCH ×2 (08:56→20:33)
[2016-10-26] MEDS: Triamcinolone Acetonide 0.1% Crm 15 GM Tube TOP SCH (08:58)
[2016-10-26] MEDS: Pantoprazole 40 MG Vial IV SCH ×2 (08:59→21:18)
[2016-10-26] MEDS: ALPRAZolam 0.5 MG Tab PO SCH ×3 (09:02→21:27)
[2016-10-26] MEDS: [UNRECOGNIZED DRUG - OTHER] PO SCH (13:26)
[2016-10-26] MEDS: Non-Formulary Medication 1 Each (Linaclotide [Linzess] 145 MCG) PO SCH (13:26)
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
[2016-10-26] MEDS: Ondansetron 4 MG Tab.DIS PO PRN (21:16)
[2016-10-26] MEDS: Menthol/Methyl Salicylate 85 GM Tube TOP PRN (21:17)
[2016-10-26] MEDS ORDERED: fentaNYL 50 MCG/HR Transdermal Patch TOP SCH (21:45)
[2016-10-26] MEDS ORDERED: fentaNYL 100 MCG/HR Transdermal Patch TOP SCH (21:45)
[2016-10-26] MEDS: HYDROmorphone/Normal Saline 15 MG/30 ML PCA IV PRN (23:13)
[2016-10-27] MEDS: Ketorolac 30 MG/ML SDV IVPUSH PRN ×4 (01:13→23:28)
[2016-10-27] MEDS: Ondansetron 4 MG/2 ML SDV IVPUSH PRN ×2 (01:13→09:32)
[2016-10-27] MEDS: LORazepam 2 MG/ML MDV IV PRN ×2 (03:43→11:42)
[2016-10-27] MEDS: Sodium Chloride 0.9% 1,000 ML IV SCH ×3 (05:43→23:19)
[2016-10-27] MEDS ORDERED: Potassium Chloride 100 ML ONE (06:01)
[2016-10-27] MEDS: Potassium Chloride 20 MEQ, Lidocaine 1% 2 ML in Sodium Chloride 0.9% 100 ML IV SCH ×4 (06:14→18:11)
[2016-10-27] MEDS: Furosemide 80 MG Tab PO SCH ×2 (08:36→14:07)
[2016-10-27] MEDS: Spironolactone 25 MG Tab PO SCH (08:36)
[2016-10-27] MEDS: [UNRECOGNIZED DRUG - OTHER] PO SCH (08:38)
[2016-10-27] MEDS: Bisacodyl 5 MG Tab PO SCH (08:39)
[2016-10-27] MEDS: Folic Acid 1 MG Tab PO SCH (08:40)
[2016-10-27] MEDS: lamoTRIgine 100 MG Tab PO SCH (08:40)
[2016-10-27] MEDS: Potassium Chloride 20 MEQ Tab.ER PO SCH (08:40)
[2016-10-27] MEDS: Non-Formulary Medication 1 Each (Linaclotide [Linzess] 145 MCG) PO SCH (08:41)
[2016-10-27] MEDS: Enoxaparin 30 MG/0.3 ML Syringe SUBCUT SCH (08:41)
[2016-10-27] MEDS: FENTANYL PATCH CHECK TOP SCH ×2 (08:42→22:36)
[2016-10-27] MEDS: FLUoxetine 20 MG Cap PO SCH (08:42)
[2016-10-27] MEDS: buPROPion 150 MG Tab.ER PO SCH (08:43)
[2016-10-27] MEDS: fentaNYL 50 MCG/HR Transdermal Patch TOP SCH (09:21)
[2016-10-27] MEDS: ALPRAZolam 0.5 MG Tab PO SCH ×3 (09:21→20:30)
[2016-10-27] MEDS: fentaNYL 100 MCG/HR Transdermal Patch TOP SCH (09:22)
[2016-10-27] MEDS: Pantoprazole 40 MG Vial IV SCH ×2 (11:42→22:30)
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
[2016-10-27] MEDS: LINZESS 145 MCG PO SCH (20:30)
[2016-10-27] MEDS: Ondansetron 4 MG Tab.DIS PO PRN (23:28)
[2016-10-28] MEDS: HYDROmorphone/Normal Saline 15 MG/30 ML PCA IV PRN (00:07)
[2016-10-28] MEDS: LORazepam 2 MG/ML MDV IV PRN ×3 (03:41→21:06)
[2016-10-28] MEDS: Ketorolac 30 MG/ML SDV IVPUSH PRN ×3 (07:42→21:05)
[2016-10-28] MEDS: Sodium Chloride 0.9% 1,000 ML IV SCH ×2 (07:42→15:48)
[2016-10-28] MEDS: Furosemide 80 MG Tab PO SCH ×2 (07:56→13:57)
[2016-10-28] MEDS: Spironolactone 25 MG Tab PO SCH (08:49)
[2016-10-28] MEDS: Bisacodyl 5 MG Tab PO SCH (08:50)
[2016-10-28] MEDS: Folic Acid 1 MG Tab PO SCH (08:50)
[2016-10-28] MEDS: Potassium Chloride 20 MEQ Tab.ER PO SCH (08:51)
[2016-10-28] MEDS: lamoTRIgine 100 MG Tab PO SCH (08:53)
[2016-10-28] MEDS: Enoxaparin 30 MG/0.3 ML Syringe SUBCUT SCH (08:56)
[2016-10-28] MEDS: ALPRAZolam 0.5 MG Tab PO SCH ×3 (08:58→21:22)
[2016-10-28] MEDS: FLUoxetine 20 MG Cap PO SCH (08:58)
[2016-10-28] MEDS: Triamcinolone Acetonide 0.1% Crm 15 GM Tube TOP SCH (09:00)
[2016-10-28] MEDS: buPROPion 150 MG Tab.ER PO SCH (09:08)
[2016-10-28] MEDS: [UNRECOGNIZED DRUG - OTHER] PO SCH (09:52)
[2016-10-28] MEDS: FENTANYL PATCH CHECK TOP SCH ×2 (09:53→21:08)
[2016-10-28] MEDS: Pantoprazole 40 MG Vial IV SCH ×2 (09:54→21:10)
[2016-10-28] MEDS: Potassium Chloride 20 MEQ, Lidocaine 1% 2 ML in Sodium Chloride 0.9% 100 ML IV SCH ×3 (10:20→14:57)
[2016-10-28] MEDS: Magnesium Sulfate/Water 2 GM in Premix Bag 1 BAG IV SCH ×2 (17:07→19:59)
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
[2016-10-28] MEDS: Ondansetron 4 MG Tab.DIS PO PRN (19:59)
[2016-10-28] MEDS: LINZESS 145 MCG PO SCH (21:08)
[2016-10-29] MEDS: Sodium Chloride 0.9% 1,000 ML IV SCH ×2 (00:42→09:06)
[2016-10-29] MEDS: HYDROmorphone/Normal Saline 15 MG/30 ML PCA IV PRN (04:33)
[2016-10-29] MEDS: Ketorolac 30 MG/ML SDV IVPUSH PRN ×3 (04:34→16:46)
[2016-10-29] MEDS: LORazepam 2 MG/ML MDV IV PRN (04:34)
[2016-10-29] MEDS: Furosemide 80 MG Tab PO SCH ×2 (07:42→14:13)
[2016-10-29] MEDS: Spironolactone 25 MG Tab PO SCH (09:14)
[2016-10-29] MEDS: [UNRECOGNIZED DRUG - OTHER] PO SCH (09:14)
[2016-10-29] MEDS: Bisacodyl 5 MG Tab PO SCH (09:14)
[2016-10-29] MEDS: fentaNYL 50 MCG/HR Transdermal Patch TOP SCH (09:15)
[2016-10-29] MEDS: fentaNYL 100 MCG/HR Transdermal Patch TOP SCH (09:18)
[2016-10-29] MEDS: Folic Acid 1 MG Tab PO SCH (09:19)
[2016-10-29] MEDS: lamoTRIgine 100 MG Tab PO SCH (09:21)
[2016-10-29] MEDS: Enoxaparin 30 MG/0.3 ML Syringe SUBCUT SCH (09:21)
[2016-10-29] MEDS: Potassium Chloride 20 MEQ Tab.ER PO SCH (09:21)
[2016-10-29] MEDS: FLUoxetine 20 MG Cap PO SCH (09:22)
[2016-10-29] MEDS: buPROPion 150 MG Tab.ER PO SCH (09:22)
[2016-10-29] MEDS: ALPRAZolam 0.5 MG Tab PO SCH ×3 (09:23→20:04)
[2016-10-29] MEDS: FENTANYL PATCH CHECK TOP SCH ×2 (09:58→20:07)
[2016-10-29] MEDS: Pantoprazole 40 MG Vial IV SCH (10:06)
[2016-10-29] MEDS: Ondansetron 4 MG/2 ML SDV IVPUSH PRN (10:39)
[2016-10-29] MEDS: Polyethylene Glycol 3350 Powder 17 GM Packet PO PRN (14:13)
[2016-10-29] MEDS: Menthol/Methyl Salicylate 85 GM Tube TOP PRN (14:22)
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
[2016-10-29] MEDS ORDERED: Potassium Chloride 20 MEQ Tab.ER PO ONE (15:00)
[2016-10-29] MEDS: Pantoprazole 40 MG Tab.CR PO SCH (16:44)
[2016-10-29] MEDS: Ondansetron 4 MG Tab.DIS PO PRN (16:45)
[2016-10-29] MEDS: Magnesium Hydroxide 400 MG/5 ML Susp 30 ML Cup PO PRN (17:02)
[2016-10-29] MEDS ORDERED: Ketorolac 10 MG Tab PO PRN (17:25)
[2016-10-29] MEDS: oxyCODONE 5 MG Tab PO PRN (20:03)
[2016-10-29] MEDS: LINZESS 145 MCG PO SCH (20:05)
[2016-10-29] MEDS ORDERED: LORazepam 2 MG/ML MDV IVPUSH PRN (22:38)
--- NOTE | 2016-10-29 22:43 | PCM.SN ---
- Free Text/Narrative Note: time 22:41 request for Ativan for agitation and nausea a; agitation, nausea p; ativan 1 mg iv every 6 hr prn agitation and nausea
[2016-10-29] MEDS ORDERED: LORazepam 1 MG Tab PO PRN (22:45)
[2016-10-30] MEDS: Magnesium Hydroxide 400 MG/5 ML Susp 30 ML Cup PO PRN (03:35)
[2016-10-30] MEDS: Polyethylene Glycol 3350 Powder 17 GM Packet PO PRN (03:35)
[2016-10-30] MEDS: oxyCODONE 5 MG Tab PO PRN (03:36)
[2016-10-30] MEDS: Menthol/Methyl Salicylate 85 GM Tube TOP PRN ×2 (03:40→22:39)
[2016-10-30] MEDS: buPROPion 150 MG Tab.ER PO SCH (09:25)
[2016-10-30] MEDS: Spironolactone 25 MG Tab PO SCH (09:26)
[2016-10-30] MEDS: Potassium Chloride 20 MEQ Tab.ER PO SCH (09:26)
[2016-10-30] MEDS: Bisacodyl 5 MG Tab PO SCH (09:26)
[2016-10-30] MEDS: Furosemide 80 MG Tab PO SCH ×2 (09:26→14:24)
[2016-10-30] MEDS: Pantoprazole 40 MG Tab.CR PO SCH ×2 (09:26→16:24)
[2016-10-30] MEDS: FLUoxetine 20 MG Cap PO SCH (09:26)
[2016-10-30] MEDS: Folic Acid 1 MG Tab PO SCH (09:26)
[2016-10-30] MEDS: lamoTRIgine 100 MG Tab PO SCH (09:26)
[2016-10-30] MEDS: ALPRAZolam 0.5 MG Tab PO SCH ×3 (09:26→22:40)
[2016-10-30] MEDS: Triamcinolone Acetonide 0.1% Crm 15 GM Tube TOP SCH (09:27)
[2016-10-30] MEDS: [UNRECOGNIZED DRUG - OTHER] PO SCH (09:28)
[2016-10-30] MEDS: FENTANYL PATCH CHECK TOP SCH ×2 (09:29→22:36)
[2016-10-30] MEDS ORDERED: Bisacodyl 10 MG Supp RECTAL ONE (13:49)
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
[2016-10-30] MEDS: LINZESS 145 MCG PO SCH (22:37)
[2016-10-31] MEDS: ALPRAZolam 0.5 MG Tab PO SCH (08:45)
[2016-10-31] MEDS: Spironolactone 25 MG Tab PO SCH (08:46)
[2016-10-31] MEDS: Pantoprazole 40 MG Tab.CR PO SCH (08:46)
[2016-10-31] MEDS: Folic Acid 1 MG Tab PO SCH (08:46)
[2016-10-31] MEDS: Bisacodyl 5 MG Tab PO SCH (08:46)
[2016-10-31] MEDS: Furosemide 80 MG Tab PO SCH (08:46)
[2016-10-31] MEDS: buPROPion 150 MG Tab.ER PO SCH (08:46)
[2016-10-31] MEDS: FLUoxetine 20 MG Cap PO SCH (08:46)
[2016-10-31] MEDS: lamoTRIgine 100 MG Tab PO SCH (08:47)
[2016-10-31] MEDS: fentaNYL 50 MCG/HR Transdermal Patch TOP SCH (08:47)
[2016-10-31] MEDS: Potassium Chloride 20 MEQ Tab.ER PO SCH (08:47)
[2016-10-31] MEDS: fentaNYL 100 MCG/HR Transdermal Patch TOP SCH (08:50)
[2016-10-31] MEDS: [UNRECOGNIZED DRUG - OTHER] PO SCH (08:54)
[2016-10-31] MEDS: FENTANYL PATCH CHECK TOP SCH (08:55)
[2016-10-31 11:05] VITALS: BP 93/65
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
== END 2016-10-31 14:15 | disposition home or self-care (01) | DRG 440 ==
LOC: JP.ED 17:34 → JP.MS 20:49 → UNDOADMIN 20:49 → JP.MS 21:59 → UNDODISIN 10-31 14:15
PROVIDERS: ADMIT Hospitalist; ATTEND Internal Medicine
DX: K85.90 Acute pancreatitis without necrosis or infection, unspecified (principal); I50.9 Heart failure, unspecified; G89.29 Other chronic pain; G40.909 Epilepsy, unspecified, not intractable, without status epilepticus; F31.9 Bipolar disorder, unspecified; E87.6 Hypokalemia; Z87.891 Personal history of nicotine dependence; V89.2XXS Person injured in unspecified motor-vehicle accident, traffic, sequela; R11.2 Nausea with vomiting, unspecified; R10.9 Unspecified abdominal pain; R45.1 Restlessness and agitation; Z86.14 Personal history of Methicillin resistant Staphylococcus aureus infection; Z96.649 Presence of unspecified artificial hip joint; Z98.84 Bariatric surgery status; Z98.0 Intestinal bypass and anastomosis status; Z79.82 Long term (current) use of aspirin; Z91.048 Other nonmedicinal substance allergy status; K59.00 Constipation, unspecified; J45.909 Unspecified asthma, uncomplicated; F10.20 Alcohol dependence, uncomplicated; F17.200 Nicotine dependence, unspecified, uncomplicated
CPT/HCPCS: 36415; 74177; 80048; 80053; 80305; 81001; 82150; 83605; 83690; 83735; 84132; 85025; 85027; 94762; 96361; 96374; 96375; 96376; 99283; 99284-25; 99285-25; A9270-GY; C9113; G0480; J1170; J1650; J1885; J2060; J2405; J3475; J3480; J7030; J7040; J7050; Q9967

== ENCOUNTER 2017-09-26 06:14 | Inpatient (IN) | payer MEDICARE, MEDICAID ==
[2017-09-26] MEDS ORDERED: LORazepam 2 MG/ML SDV IVPUSH ONE ×2 (06:35→07:32)
[2017-09-26] MEDS ORDERED: Sodium Chloride 0.9% 10 ML Syringe FLUSH PRN ×2 (06:37→11:39)
[2017-09-26] MEDS: Albuterol/Ipratropium 3.0-0.5 MG/3 ML Neb Soln NEB ONE (06:47)
--- NOTE | 2017-09-26 06:47 | EDM.PDOC ---
<[place] - Last Filed: 09/26/17 06:41> ED HPI GENERAL MEDICAL PROBLEM - General Chief Complaint: Respiratory Problem Stated Complaint: DIFFICULTY BREATHING Time Seen by Provider: 09/26/17 06:30 Source of Information: Reports: Patient, Old Records, RN History Limitations: Reports: Uncooperative (Unable to stop coughing to give a detailed history.) - History of Present Illness INITIAL COMMENTS - FREE TEXT/NARRATIVE: 42 yo female with multiple medical problems and who is on home oxygen presents with a continuous coughing spell and has her home oxygen set at 4 liters/min/ nc. It is presumed that she woke up with this and called her personal property appraiser who then brought her in. Has a pHx of CHF, asthma, and R sided heart failure. Onset: Today Onset Date: 09/26/17 Duration: Hour(s): (?), Constant Location: Reports: Chest Quality: Reports: Other (pain not reported.) Severity: Severe Improves with: Reports: None Worsens with: Reports: Other (unknown) Context: Reports: Other (chronic lung dz history.) Associated Symptoms: Reports: Cough, Shortness of Breath Treatments INSPECTOR FILTERS: Reports: Oxygen - Related Data Allergies Allergy/AdvReac Type Severity Reaction Status Date / Time codeine Allergy Rash Verified 09/26/17 06:33 metal Allergy Rash Uncoded 10/25/16 17:56 Home Meds: Home Meds ALPRAZolam [Xanax] 2 mg PO TID 05/22/14 [History] Cholecalciferol (Vitamin D3) [Vitamin D3] 2,000 unit PO DAILY 05/22/14 [History] ClonazePAM [KlonoPIN] 2 mg PO BEDTIME 05/22/14 [History] Cyanocobalamin (Vitamin B12) [Vitamin B12] 1,000 mcg IJ ASDIRECTED 05/22/14 [ History] Cyclobenzaprine [Flexeril] 10 mg PO Q8HR PRN 05/22/14 [History] FLUoxetine [PROzac] 80 mg PO DAILY 05/22/14 [History] Ferrous Fumarate-Vit [id number] 1 tab PO DAILY 05/22/14 [History] Fluticasone Propionate [Flonase] 1 spray TOP ASDIRECTED PRN 05/22/14 [History] Folic Acid 1 mg PO DAILY 05/22/14 [History] Furosemide [Lasix] 80 mg PO BID 05/22/14 [History] Meclizine [Antivert] 25 mg PO TID PRN 05/22/14 [History] Mirtazapine [Remeron] 15 mg PO DAILY@1200 05/22/14 [History] Omeprazole [Prilosec] 40 mg PO DAILY 05/22/14 [History] Polyethylene Glycol 3350 [MiraLAX] 17 gm PO DAILY 05/22/14 [History] Reti-A 0.1% 1 dose TOP BEDTIME 05/22/14 [History] Spironolactone [Aldactone] 100 mg PO DAILY 05/22/14 [History] Sucralfate [Carafate] 0.5 gm PO Q8HR 05/22/14 [History] Thiamine Mononitrate [Vitamin B-1] 100 mg PO BEDTIME 05/22/14 [History] Triamcinolone Acetonide [Kenalog 0.1% Crm] 80 gm .XX ASDIRECTED 05/22/14 [ History] Vitamin B Complex [B Complex] 1 tab PO DAILY 05/22/14 [History] Zolpidem [Ambien] 20 mg PO BEDTIME PRN 05/22/14 [History] buPROPion HCl [Wellbutrin Xl] 300 mg PO DAILY 05/22/14 [History] fentaNYL [Duragesic] 50 mcg TD Q48H 05/22/14 [History] fentaNYL [Duragesic] 100 mcg TD Q48H 05/22/14 [History] lamoTRIgine [Lamictal] 200 mg PO DAILY 05/22/14 [History] oxyCODONE HCl [Oxycodone HCl] 20 mg PO Q6HR PRN 05/22/14 [History] Mirtazapine [Remeron] 30 mg PO BEDTIME 09/25/15 [History] Aspirin 325 mg PO DAILY 07/23/16 [History] Linaclotide [Linzess] 145 mcg PO DAILY 07/23/16 [History] Sennosides [Senna] 8.6 oz PO DAILY 07/23/16 [History] Albuterol [Ventolin HFA] 2 puff INH Q4H PRN 09/26/17 [History] Dextroamphetamine/Amphetamine [Adderall 20 mg Tablet] 1 tab PO BID 09/26/17 [ History] Ferrous Fumarate/Vitamin C [Vitron-C] 1 tab PO DAILY 09/26/17 [History] Magnesium Oxide [Magnesium] 1 cap PO DAILY 09/26/17 [History] Melatonin 2 tab PO DAILY 09/26/17 [History] Naproxen 1 tab PO DAILY 09/26/17 [History] Papaya [Papaya Enzyme] 1 tab PO DAILY 09/26/17 [History] Potassium Chloride [Klor-Con] 1 tab PO DAILY 09/26/17 [History] Past Medical History Cardiovascular History: Reports: Heart Failure Respiratory History: Reports: Asthma 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 History: Reports: Renal Calculus 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: 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: Musculoskeletal History: Reports: Fracture Neurological History: Reports: Brain Injury, Seizure Psychiatric History: Reports: ADD, Addiction, Bipolar, Depression Hematologic History: Reports: Other (See Below) Other Hematologic History: blood type A Pos, anti K - Infectious Disease History Infectious Disease History: Reports: Chicken Pox, MRSA Other Infectious Disease History: MRSA right ankle, left hip - Past Surgical History GI Surgical History: Reports: Appendectomy, Cholecystectomy, Other (See Below) Other GI Surgeries/Procedures: RNY Female Surgical History: Reports: Hysterectomy, Oophorectomy Musculoskeletal Surgical History: Reports: Hip Replacement Other Musculoskeletal Surgeries/Procedures:: broken back and hips. Surgery to both. Social & Family History - Family History Family Medical History: Noncontributory - Caffeine Use Caffeine Use: Reports: Soda ED ROS GENERAL - Review of Systems Review Of Systems: See Below Constitutional: Denies: Fever, Chills HEENT: Reports: No Symptoms Respiratory: Reports: Shortness of Breath, Cough. Denies: Wheezing, Hemoptysis Cardiovascular: Reports: No Symptoms GI/Abdominal: Reports: No Symptoms : Reports: No Symptoms Musculoskeletal: Reports: No Symptoms Skin: Reports: No Symptoms Neurological: Reports: No Symptoms Psychiatric: Reports: Anxiety ED EXAM, GENERAL - Physical Exam Exam: See Below Exam Limited By: No Limitations General Appearance: Alert, WD/WN, Moderate Distress Eye Exam: Bilateral Eye: Normal Inspection Ears: Normal External Exam, Normal Canal, Hearing Grossly Normal Ear Exam: Bilateral Ear: Auricle Normal, Canal Normal Nose: Normal Inspection, Normal Mucosa, No Blood Throat/Mouth: Normal Inspection, Normal Lips, Normal Oropharynx Head: Atraumatic, Normocephalic Neck: Normal Inspection Respiratory/Chest: Decreased Breath Sounds, Other (continuous coughing) Cardiovascular: Regular Rate, Rhythm, No Edema GI/Abdominal: Soft, No Distention Back Exam: Normal Inspection. No: CVA Tenderness (R), CVA Tenderness (L) Extremities: Normal Inspection, Normal Range of Motion, Non-Tender, No Pedal Edema Neurological: Alert, CN II-XII Intact, No Motor/Sensory Deficits Psychiatric: Anxious Skin Exam: Warm, Dry, Intact, Normal Color, No Rash Lymphatic: No Adenopathy Course - Vital Signs Last Recorded V/S: Last Vital Signs Temp 37.0 C 09/28/17 15:57 Pulse 94 09/28/17 15:57 Resp 18 09/28/17 15:57 BP 114/66 09/28/17 15:57 Pulse Ox 94 L 09/28/17 15:57 - Orders/Labs/Meds Orders: Active Orders 24 hr Category Date Time Status Cyanocobalamin (Vitamin B12) [Vitamin B12] Med 10/02/17 09:00 Active 1,000 mcg IM Sa@0900 Medication Orders Acetaminophen (Tylenol) 650 mg PO Q4H PRN PRN Reason: Pain/Fever Last Admin: 09/27/17 17:33 Dose: 650 mg Admin: 09/27/17 09:13 Dose: 650 mg Albuterol (Proventil Neb Soln) 2.5 mg NEB Q4H PRN PRN Reason: Dyspnea Last Admin: 09/27/17 03:03 Dose: 2.5 mg Albuterol/Ipratropium (Duoneb 3.0-0.5 Mg/3 Ml) 3 ml NEB QIDRT [facility] Last Admin: 09/28/17 14:41 Dose: 3 ml Admin: 09/28/17 11:05 Dose: 3 ml Admin: 09/28/17 07:33 Dose: 3 ml Admin: 09/27/17 21:55 Dose: 3 ml Admin: 09/27/17 14:46 Dose: Admin: 09/27/17 11:17 Dose: 3 ml Alprazolam (Xanax) 2 mg PO TID [facility] Last Admin: 09/28/17 13:23 Dose: 2 mg Admin: 09/28/17 09:59 Dose: 2 mg Admin: 09/27/17 20:48 Dose: 2 mg Admin: 09/27/17 14:48 Dose: 2 mg Admin: 09/27/17 09:13 Dose: 2 mg Admin: 09/26/17 23:29 Dose: 2 mg Admin: 09/26/17 15:45 Dose: 2 mg Amphetamine/Dextroamphetamine (Adderall) 20 mg PO BID@0800,1400 [facility] Last Admin: 09/28/17 13:22 Dose: 20 mg Admin: 09/28/17 07:27 Dose: 20 mg Admin: 09/27/17 14:40 Dose: Not Given Admin: 09/27/17 09:13 Dose: 20 mg Admin: 09/26/17 15:37 Dose: Not Given Aspirin (Ecotrin) 325 mg PO DAILY [facility] Last Admin: 09/28/17 09:13 Dose: 325 mg Admin: 09/27/17 08:22 Dose: 325 mg Azithromycin (Zithromax) 500 mg PO DAILY [facility] Last Admin: 09/28/17 09:17 Dose: 500 mg Admin: 09/27/17 10:39 Dose: 500 mg Benzocaine/Menthol (Cepacol Sore Throat) 1 lozenge MUCMEM Q2H PRN PRN Reason: Sore Throat Last Admin: 09/28/17 13:21 Dose: 1 gill Admin: 09/27/17 04:38 Dose: 1 gill Benzonatate (Tessalon Perles) 100 mg PO TID PRN PRN Reason: Cough Last Admin: 09/27/17 20:40 Dose: 100 mg Admin: 09/27/17 03:02 Dose: 100 mg Bupropion HCl (Wellbutrin Xl) 300 mg PO DAILY [facility] Last Admin: 09/28/17 09:16 Dose: 300 mg Admin: 09/27/17 08:22 Dose: 300 mg Cholecalciferol (Vitamin D3) 2,000 units PO DAILY [facility] Last Admin: 09/28/17 09:16 Dose: 2,000 units Admin: 09/27/17 08:21 Dose: 2,000 units Clonazepam (Klonopin) 2 mg PO BEDTIME [facility] Last Admin: 09/27/17 20:46 Dose: 2 mg Admin: 09/26/17 23:29 Dose: 2 mg Cyanocobalamin (Vitamin B12) 1,000 mcg IM Sa@0900 [facility] Cyclobenzaprine HCl (Flexeril) 10 mg PO Q8H PRN PRN Reason: Muscle Spasm Enoxaparin Sodium (Lovenox) 40 mg SUBCUT Q24H [facility] Last Admin: 09/28/17 16:09 Dose: 40 mg Admin: 09/27/17 17:06 Dose: 40 mg Admin: 09/26/17 17:40 Dose: 40 mg Fentanyl (Duragesic) 50 mcg TRDERM Q48H [facility] Last Admin: 09/27/17 09:14 Dose: 50 mcg Fentanyl (Duragesic) 100 mcg TRDERM Q48H [facility] Last Admin: 09/27/17 09:14 Dose: 100 mcg Fluoxetine HCl (Prozac) 80 mg PO DAILY [facility] Last Admin: 09/28/17 09:12 Dose: 80 mg Admin: 09/27/17 08:21 Dose: 80 mg Fluticasone Propionate (Flonase) 0 gm NASBOTH ASDIRECTED PRN PRN Reason: Allergies Folic Acid (Folic Acid) 1 mg PO DAILY [facility] Last Admin: 09/28/17 09:14 Dose: 1 mg Admin: 09/27/17 08:22 Dose: 1 mg Furosemide (Lasix) 80 mg PO BIDDIURETIC [facility] Last Admin: 09/28/17 16:09 Dose: 80 mg Admin: 09/28/17 07:28 Dose: 80 mg Admin: 09/27/17 14:39 Dose: 80 mg Admin: 09/27/17 08:21 Dose: 80 mg Admin: 09/26/17 15:38 Dose: 80 mg Ceftriaxone Sodium 2 gm/ (Sodium Chloride) 50 mls @ 100 mls/hr IV Q24H [facility] Last Admin: 09/28/17 16:12 Dose: 100 mls/hr Admin: 09/27/17 17:04 Dose: 100 mls/hr Iron/Vitamin C (Vitron-C) 1 tab PO DAILY [facility] Last Admin: 09/28/17 09:13 Dose: 1 tab Admin: 09/27/17 08:21 Dose: 1 tab Lamotrigine (Lamotrigine) 200 mg PO DAILY [facility] Last Admin: 09/28/17 09:13 Dose: 200 mg Admin: 09/27/17 08:22 Dose: 200 mg Lorazepam (Ativan) 1 mg IV Q2H PRN PRN Reason: Cough Last Admin: 09/27/17 04:45 Dose: 1 mg Magnesium Oxide (Magnesium Oxide) 400 mg PO DAILY [facility] Last Admin: 09/28/17 09:14 Dose: 400 mg Admin: 09/27/17 08:22 Dose: 400 mg Meclizine HCl (Antivert) 25 mg PO TID PRN PRN Reason: Dizziness Melatonin (Melatonin) 21 mg PO BEDTIME [facility] Last Admin: 09/27/17 21:50 Dose: 21 mg Admin: 09/26/17 23:28 Dose: 21 mg Mirtazapine (Remeron) 15 mg PO DAILY@1200 [facility] Last Admin: 09/28/17 13:23 Dose: 15 mg Admin: 09/27/17 13:24 Dose: 15 mg Mirtazapine (Remeron) 30 mg PO BEDTIME [facility] Last Admin: 09/27/17 20:50 Dose: 30 mg Admin: 09/26/17 23:29 Dose: 30 mg Non-Formulary Medication (Linaclotide [Linzess]) 145 mcg PO DAILY [facility] Last Admin: 09/28/17 09:14 Dose: Admin: 09/27/17 17:10 Dose: Non-Formulary Medication (Papaya [Papaya Enzyme]) 1 tab PO DAILY [facility] Last Admin: 09/28/17 09:15 Dose: Admin: 09/27/17 17:10 Dose: Non-Formulary Medication (Reti-A 0.1%) 1 dose TOP BEDTIME [facility] Last Admin: 09/27/17 21:00 Dose: Not Given Admin: 09/27/17 17:11 Dose: Not Given Fentanyl Patch Check 0 each TOP BID [facility] Last Admin: 09/28/17 09:18 Dose: Admin: 09/27/17 21:00 Dose: Admin: 09/27/17 09:18 Dose: Admin: 09/26/17 23:26 Dose: Admin: 09/26/17 23:26 Dose: Oxycodone HCl (Oxycodone) 20 mg PO Q6H PRN PRN Reason: Pain Last Admin: 09/28/17 16:17 Dose: 20 mg Admin: 09/28/17 09:59 Dose: 20 mg Admin: 09/28/17 03:52 Dose: 20 mg Admin: 09/27/17 21:26 Dose: 20 mg Admin: 09/27/17 14:37 Dose: 20 mg Admin: 09/27/17 05:50 Dose: 20 mg Admin: 09/26/17 23:30 Dose: 20 mg Admin: 09/26/17 17:29 Dose: 20 mg Pantoprazole Sodium (Protonix) 40 mg PO ACBREAKFAST [facility] Last Admin: 09/28/17 07:28 Dose: 40 mg Admin: 09/27/17 08:21 Dose: 40 mg Polyethylene Glycol (Miralax) 17 gm PO DAILY [facility] Last Admin: 09/28/17 09:14 Dose: 17 gm Admin: 09/27/17 09:17 Dose: Not Given Potassium Chloride (Klor-Con M20) 40 meq PO DAILY@0800 [facility] Last Admin: 09/28/17 07:28 Dose: 40 meq Admin: 09/27/17 08:28 Dose: 40 meq Senna (Senna) 8.6 mg PO DAILY [facility] Last Admin: 09/28/17 09:12 Dose: 8.6 mg Admin: 09/27/17 08:21 Dose: 8.6 mg Sodium Chloride (Saline Flush) 10 ml FLUSH ASDIRECTED PRN PRN Reason: Keep Vein Open Spironolactone (Aldactone) 100 mg PO DAILY [facility] Last Admin: 09/28/17 09:13 Dose: 100 mg Admin: 09/27/17 08:22 Dose: 100 mg Sucralfate (Carafate) 0.5 gm PO Q8HR [facility] Last Admin: 09/28/17 13:23 Dose: 0.5 gm Admin: 09/28/17 06:37 Dose: 0.5 gm Admin: 09/27/17 21:55 Dose: 0.5 gm Admin: 09/27/17 14:39 Dose: 0.5 gm Admin: 09/27/17 05:06 Dose: Not Given Admin: 09/26/17 23:28 Dose: 0.5 gm Admin: 09/26/17 15:38 Dose: 0.5 gm Thiamine HCl (Vitamin B-1) 100 mg PO BEDTIME [facility] Last Admin: 09/27/17 20:50 Dose: 100 mg Admin: 09/26/17 23:29 Dose: 100 mg Triamcinolone Acetonide (Triamcinolone Acetonide 0.1% Crm) 0 gm TOP DAILY [facility] Last Admin: 09/28/17 09:16 Dose: 1 applic Admin: 09/27/17 09:16 Dose: Not Given Vitamin B Complex (Vitamin B Complex) 1 each PO DAILY [facility] Last Admin: 09/28/17 09:17 Dose: 1 each Admin: 09/27/17 08:22 Dose: 1 each Zolpidem Tartrate (Ambien) 20 mg PO BEDTIME PRN PRN Reason: Insomnia Labs: Laboratory Tests 09/26/17 09/26/17 09/26/17 Range/Units 06:48 06:48 06:48 WBC (4.5-11.0) K/uL RBC (3.30-5.50) M/uL Hgb (12.0-15.0) g/dL Hct (36.0-48.0) % MCV (80-98) fL MCH (27-31) pg MCHC (32-36) % Plt Count (150-400) K/uL Neut % (Auto) (36-66) % Lymph % (Auto) (24-44) % [place] % (Auto) (2-6) % Eos % (Auto) (2-4) % Baso % (Auto) (0-1) % Puncture Site ABG pH (7.350-7.450) ABG pCO2 (35.0-42.0) mmHg ABG pO2 (75.0-100.0) mmHg ABG HCO3 (22.0-26.0) mmol/L ABG Total CO2 (21.0-25.0) mmol/L ABG O2 Saturation (95.0-98.0) % ABG O2 Content (15.0-23.0) %vol ABG Base Excess mm/L ABG Hemoglobin (12.0-16.0) g/dL ABG Oxyhemoglobin % ABG Carboxyhemoglobin (0.0-1.6) % ABG Methemoglobin % Timothy Test O2 Delivery Device Oxygen Flow Rate L Sodium (140-148) mmol/L Potassium (3.6-5.2) mmol/L Chloride (100-108) mmol/L Carbon Dioxide (21-32) mmol/L Anion Gap (5.0-14.0) mmol/L BUN (7-18) mg/dL Creatinine (0.6-1.0) mg/dL Est Cr Clr Drug Dosing mL/min Estimated GFR (MDRD) (>60) Glucose (74-106) mg/dL Calcium (8.5-10.1) mg/dL Total Bilirubin 0.3 (0.2-1.0) mg/dL Direct Bilirubin 0.17 (0.0-0.2) mg/dL Indirect Bilirubin 0.13 AST 45 H (15-37) U/L ALT 28 (12-78) U/L Alkaline Phosphatase 202 H (46-116) U/L NT-Pro-B Natriuret Pep 100 (5-125) pg/mL Total Protein 7.8 (6.4-8.2) g/dL Albumin 4.0 (3.4-5.0) g/dL Globulin 3.8 H (2.3-3.5) g/dL Albumin/Globulin Ratio 1.1 L (1.2-2.2) Urine Color Urine Appearance Urine pH (4.5-8.0) Ur Specific Range (1.008-1.030) Urine Protein (NEGATIVE) mg/dL Urine Glucose (UA) (NEGATIVE) mg/dL Urine Ketones (NEGATIVE) mg/dL Urine Occult Blood (NEGATIVE) Urine Nitrite (NEGATIVE) Urine Bilirubin (NEGATIVE) Urine Urobilinogen (NORMAL) mg/dL Ur Leukocyte Esterase (NEGATIVE) Urine RBC (0-5) Urine WBC (0-5) Ur Epithelial Cells Amorphous Sediment Urine Bacteria Urine Mucus Urine Opiates Screen (NEGATIVE) Ur Oxycodone Screen (NEGATIVE) Urine Methadone Screen (NEGATIVE) Ur Propoxyphene Screen (NEGATIVE) Ur Barbiturates Screen (NEGATIVE) Ur Tricyclics Screen (NEGATIVE) Ur Phencyclidine Scrn (NEGATIVE) Ur Amphetamine Screen (NEGATIVE) U Methamphetamines Scrn (NEGATIVE) Urine MDMA Screen (NEGATIVE) U Benzodiazepines Scrn (NEGATIVE) U Cocaine Metab Screen (NEGATIVE) U Marijuana (THC) Screen (NEGATIVE) Ethyl Alcohol < 3 mg/dL 09/26/17 09/26/17 09/26/17 Range/Units 06:50 06:50 07:20 WBC 7.1 (4.5-11.0) K/uL RBC 4.75 (3.30-5.50) M/uL Hgb 13.9 (12.0-15.0) g/dL Hct 42.9 (36.0-48.0) % MCV 90 (80-98) fL MCH 29 (27-31) pg MCHC 32 (32-36) % Plt Count 353 (150-400) K/uL Neut % (Auto) (36-66) % Lymph % (Auto) (24-44) % [place] % (Auto) (2-6) % Eos % (Auto) (2-4) % Baso % (Auto) (0-1) % Puncture Site Rt radial ABG pH 7.430 (7.350-7.450) ABG pCO2 40.4 (35.0-42.0) mmHg ABG pO2 100.0 (75.0-100.0) mmHg ABG HCO3 26.3 H (22.0-26.0) mmol/L ABG Total CO2 23.0 (21.0-25.0) mmol/L ABG O2 Saturation 96.7 (95.0-98.0) % ABG O2 Content 18.9 (15.0-23.0) %vol ABG Base Excess 2.3 mm/L ABG Hemoglobin 14.1 (12.0-16.0) g/dL ABG Oxyhemoglobin 94.8 % ABG Carboxyhemoglobin 0.6 (0.0-1.6) % ABG Methemoglobin 1.4 % Timothy Test Pass O2 Delivery Device Nasal cannula Oxygen Flow Rate 4 L Sodium 136 L (140-148) mmol/L Potassium 3.9 (3.6-5.2) mmol/L Chloride 97 L (100-108) mmol/L Carbon Dioxide 27 (21-32) mmol/L Anion Gap 15.9 H (5.0-14.0) mmol/L BUN 19 H D (7-18) mg/dL Creatinine 1.1 H D (0.6-1.0) mg/dL Est Cr Clr Drug Dosing 58.73 mL/min Estimated GFR (MDRD) 54 L (>60) Glucose 155 H (74-106) mg/dL Calcium 9.4 (8.5-10.1) mg/dL Total Bilirubin (0.2-1.0) mg/dL Direct Bilirubin (0.0-0.2) mg/dL Indirect Bilirubin AST (15-37) U/L ALT (12-78) U/L Alkaline Phosphatase (46-116) U/L NT-Pro-B Natriuret Pep (5-125) pg/mL Total Protein (6.4-8.2) g/dL Albumin (3.4-5.0) g/dL Globulin (2.3-3.5) g/dL Albumin/Globulin Ratio (1.2-2.2) Urine Color Urine Appearance Urine pH (4.5-8.0) Ur Specific Range (1.008-1.030) Urine Protein (NEGATIVE) mg/dL Urine Glucose (UA) (NEGATIVE) mg/dL Urine Ketones (NEGATIVE) mg/dL Urine Occult Blood (NEGATIVE) Urine Nitrite (NEGATIVE) Urine Bilirubin (NEGATIVE) Urine Urobilinogen (NORMAL) mg/dL Ur Leukocyte Esterase (NEGATIVE) Urine RBC (0-5) Urine WBC (0-5) Ur Epithelial Cells Amorphous Sediment Urine Bacteria Urine Mucus Urine Opiates Screen (NEGATIVE) Ur Oxycodone Screen (NEGATIVE) Urine Methadone Screen (NEGATIVE) Ur Propoxyphene Screen (NEGATIVE) Ur Barbiturates Screen (NEGATIVE) Ur Tricyclics Screen (NEGATIVE) Ur Phencyclidine Scrn (NEGATIVE) Ur Amphetamine Screen (NEGATIVE) U Methamphetamines Scrn (NEGATIVE) Urine MDMA Screen (NEGATIVE) U Benzodiazepines Scrn (NEGATIVE) U Cocaine Metab Screen (NEGATIVE) U Marijuana (THC) Screen (NEGATIVE) Ethyl Alcohol mg/dL 09/26/17 09/26/17 09/27/17 Range/Units 08:07 08:07 06:02 WBC 5.0 (4.5-11.0) K/uL RBC 4.09 (3.30-5.50) M/uL Hgb 12.0 (12.0-15.0) g/dL Hct 37.5 (36.0-48.0) % MCV 92 (80-98) fL MCH 29 (27-31) pg MCHC 32 (32-36) % Plt Count 255 (150-400) K/uL Neut % (Auto) 79 H (36-66) % Lymph % (Auto) 15 L (24-44) % [place] % (Auto) 3 (2-6) % Eos % (Auto) 2 (2-4) % Baso % (Auto) 0 (0-1) % Puncture Site ABG pH (7.350-7.450) ABG pCO2 (35.0-42.0) mmHg ABG pO2 (75.0-100.0) mmHg ABG HCO3 (22.0-26.0) mmol/L ABG Total CO2 (21.0-25.0) mmol/L ABG O2 Saturation (95.0-98.0) % ABG O2 Content (15.0-23.0) %vol ABG Base Excess mm/L ABG Hemoglobin (12.0-16.0) g/dL ABG Oxyhemoglobin % ABG Carboxyhemoglobin (0.0-1.6) % ABG Methemoglobin % Timothy Test O2 Delivery Device Oxygen Flow Rate L Sodium (140-148) mmol/L Potassium (3.6-5.2) mmol/L Chloride (100-108) mmol/L Carbon Dioxide (21-32) mmol/L Anion Gap (5.0-14.0) mmol/L BUN (7-18) mg/dL Creatinine (0.6-1.0) mg/dL Est Cr Clr Drug Dosing mL/min Estimated GFR (MDRD) (>60) Glucose (74-106) mg/dL Calcium (8.5-10.1) mg/dL Total Bilirubin (0.2-1.0) mg/dL Direct Bilirubin (0.0-0.2) mg/dL Indirect Bilirubin AST (15-37) U/L ALT (12-78) U/L Alkaline Phosphatase (46-116) U/L NT-Pro-B Natriuret Pep (5-125) pg/mL Total Protein (6.4-8.2) g/dL Albumin (3.4-5.0) g/dL Globulin (2.3-3.5) g/dL Albumin/Globulin Ratio (1.2-2.2) Urine Color Yellow Urine Appearance Cloudy Urine pH 5.0 (4.5-8.0) Ur Specific Range 1.010 (1.008-1.030) Urine Protein Negative (NEGATIVE) mg/dL Urine Glucose (UA) Normal (NEGATIVE) mg/dL Urine Ketones Negative (NEGATIVE) mg/dL Urine Occult Blood Negative (NEGATIVE) Urine Nitrite Negative (NEGATIVE) Urine Bilirubin Negative (NEGATIVE) Urine Urobilinogen Normal (NORMAL) mg/dL Ur Leukocyte Esterase Large (NEGATIVE) Urine RBC 0-5 (0-5) Urine WBC 10-20 H (0-5) Ur Epithelial Cells Rare Amorphous Sediment Not seen Urine Bacteria Many Urine Mucus Not seen Urine Opiates Screen Negative (NEGATIVE) Ur Oxycodone Screen Positive H (NEGATIVE) Urine Methadone Screen Negative (NEGATIVE) Ur Propoxyphene Screen Negative (NEGATIVE) Ur Barbiturates Screen Negative (NEGATIVE) Ur Tricyclics Screen Positive H (NEGATIVE) Ur Phencyclidine Scrn Negative (NEGATIVE) Ur Amphetamine Screen Negative (NEGATIVE) U Methamphetamines Scrn Negative (NEGATIVE) Urine MDMA Screen Negative (NEGATIVE) U Benzodiazepines Scrn Positive H (NEGATIVE) U Cocaine Metab Screen Negative (NEGATIVE) U Marijuana (THC) Screen Negative (NEGATIVE) Ethyl Alcohol mg/dL 09/27/17 Range/Units 06:02 WBC (4.5-11.0) K/uL RBC (3.30-5.50) M/uL Hgb (12.0-15.0) g/dL Hct (36.0-48.0) % MCV (80-98) fL MCH (27-31) pg MCHC (32-36) % Plt Count (150-400) K/uL Neut % (Auto) (36-66) % Lymph % (Auto) (24-44) % [place] % (Auto) (2-6) % Eos % (Auto) (2-4) % Baso % (Auto) (0-1) % Puncture Site ABG pH (7.350-7.450) ABG pCO2 (35.0-42.0) mmHg ABG pO2 (75.0-100.0) mmHg ABG HCO3 (22.0-26.0) mmol/L ABG Total CO2 (21.0-25.0) mmol/L ABG O2 Saturation (95.0-98.0) % ABG O2 Content (15.0-23.0) %vol ABG Base Excess mm/L ABG Hemoglobin (12.0-16.0) g/dL ABG Oxyhemoglobin % ABG Carboxyhemoglobin (0.0-1.6) % ABG Methemoglobin % Timothy Test O2 Delivery Device Oxygen Flow Rate L Sodium 139 L (140-148) mmol/L Potassium 2.8 L* (3.6-5.2) mmol/L Chloride 99 L (100-108) mmol/L Carbon Dioxide 31 (21-32) mmol/L Anion Gap 11.8 (5.0-14.0) mmol/L BUN 14 (7-18) mg/dL Creatinine 0.9 (0.6-1.0) mg/dL Est Cr Clr Drug Dosing 71.78 mL/min Estimated GFR (MDRD) > 60 (>60) Glucose 108 H (74-106) mg/dL Calcium 8.4 L (8.5-10.1) mg/dL Total Bilirubin 0.4 (0.2-1.0) mg/dL Direct Bilirubin (0.0-0.2) mg/dL Indirect Bilirubin AST 28 (15-37) U/L ALT 22 (12-78) U/L Alkaline Phosphatase 155 H (46-116) U/L NT-Pro-B Natriuret Pep (5-125) pg/mL Total Protein 6.7 (6.4-8.2) g/dL Albumin 3.4 (3.4-5.0) g/dL Globulin 3.3 (2.3-3.5) g/dL Albumin/Globulin Ratio 1.0 L (1.2-2.2) Urine Color Urine Appearance Urine pH (4.5-8.0) Ur Specific Range (1.008-1.030) Urine Protein (NEGATIVE) mg/dL Urine Glucose (UA) (NEGATIVE) mg/dL Urine Ketones (NEGATIVE) mg/dL Urine Occult Blood (NEGATIVE) Urine Nitrite (NEGATIVE) Urine Bilirubin (NEGATIVE) Urine Urobilinogen (NORMAL) mg/dL Ur Leukocyte Esterase (NEGATIVE) Urine RBC (0-5) Urine WBC (0-5) Ur Epithelial Cells Amorphous Sediment Urine Bacteria Urine Mucus Urine Opiates Screen (NEGATIVE) Ur Oxycodone Screen (NEGATIVE) Urine Methadone Screen (NEGATIVE) Ur Propoxyphene Screen (NEGATIVE) Ur Barbiturates Screen (NEGATIVE) Ur Tricyclics Screen (NEGATIVE) Ur Phencyclidine Scrn (NEGATIVE) Ur Amphetamine Screen (NEGATIVE) U Methamphetamines Scrn (NEGATIVE) Urine MDMA Screen (NEGATIVE) U Benzodiazepines Scrn (NEGATIVE) U Cocaine Metab Screen (NEGATIVE) U Marijuana (THC) Screen (NEGATIVE) Ethyl Alcohol mg/dL Meds: Medications Generic Name Dose Route Start Last Admin Trade Name Freq PRN Reason Stop Dose Admin Acetaminophen 650 mg 09/27/17 08:34 09/27/17 17:33 Tylenol PO 650 mg Q4H PRN Administration Pain/Fever Albuterol 2.5 mg 09/27/17 02:35 09/27/17 03:03 Proventil Neb Soln NEB 2.5 mg Q4H PRN Administration Dyspnea Albuterol/Ipratropium 3 ml 09/27/17 11:00 09/28/17 14:41 Duoneb 3.0-0.5 Mg/3 Ml NEB 3 ml QIDRT DANILO Administration Alprazolam 2 mg 09/26/17 14:00 09/28/17 13:23 Xanax PO 2 mg TID DANILO Administration Amphetamine/Dextroamphetamine 20 mg 09/26/17 14:00 09/28/17 13:22 Adderall PO 20 mg BID@0800,1400 DANILO Administration Aspirin 325 mg 09/27/17 09:00 09/28/17 09:13 Ecotrin PO 325 mg DAILY DANILO Administration Azithromycin 500 mg 09/27/17 09:00 09/28/17 09:17 Zithromax PO 500 mg DAILY DANILO Administration Benzocaine/Menthol 1 lozenge 09/27/17 04:18 09/28/17 13:21 Cepacol Sore Throat MUCMEM 1 gill Q2H PRN Administration Sore Throat Benzonatate 100 mg 09/27/17 02:35 09/27/17 20:40 Tessalon Perles PO 100 mg TID PRN Administration Cough Bupropion HCl 300 mg 09/27/17 09:00 09/28/17 09:16 Wellbutrin Xl PO 300 mg DAILY DANILO Administration Cholecalciferol 2,000 units 09/27/17 09:00 09/28/17 09:16 Vitamin D3 PO 2,000 units DAILY [facility] Administration Clonazepam 2 mg 09/26/17 21:00 09/27/17 20:46 Klonopin PO 2 mg BEDTIME DANILO Administration Cyanocobalamin 1,000 mcg 10/02/17 09:00 Vitamin B12 IM Sa@0900 [facility] Cyclobenzaprine HCl 10 mg 09/26/17 11:44 Flexeril PO Q8H PRN Muscle Spasm Enoxaparin Sodium 40 mg 09/26/17 16:00 09/28/17 16:09 Lovenox SUBCUT 40 mg Q24H DANILO Administration Fentanyl 50 mcg 09/27/17 09:00 09/27/17 09:14 Duragesic TRDERM 50 mcg Q48H DANILO Administration Fentanyl 100 mcg 09/27/17 09:00 09/27/17 09:14 Duragesic TRDERM 100 mcg Q48H DANILO Administration Fluoxetine HCl 80 mg 09/27/17 09:00 09/28/17 09:12 Prozac PO 80 mg DAILY DANILO Administration Fluticasone Propionate 0 gm 09/26/17 11:44 Flonase NASBOTH ASDIRECTED PRN Allergies Folic Acid 1 mg 09/27/17 09:00 09/28/17 09:14 Folic Acid PO 1 mg DAILY DANILO Administration Furosemide 80 mg 09/26/17 14:00 09/28/17 16:09 Lasix PO 80 mg BIDDIURETIC DANILO Administration Ceftriaxone Sodium 2 gm/ 50 mls @ 100 mls/hr 09/27/17 15:00 09/28/17 16:12 Sodium Chloride IV 100 mls/hr Q24H DANILO Administration Iron/Vitamin C 1 tab 09/27/17 09:00 09/28/17 09:13 Vitron-C PO 1 tab DAILY DANILO Administration Lamotrigine 200 mg 09/27/17 09:00 09/28/17 09:13 Lamotrigine PO 200 mg DAILY DANILO Administration Lorazepam 1 mg 09/26/17 11:39 09/27/17 04:45 Ativan IV 1 mg Q2H PRN Administration Cough Magnesium Oxide 400 mg 09/27/17 09:00 09/28/17 09:14 Magnesium Oxide PO 400 mg DAILY DANILO Administration Meclizine HCl 25 mg 09/26/17 11:44 Antivert PO TID PRN Dizziness Melatonin 21 mg 09/26/17 21:00 09/27/17 21:50 Melatonin PO 21 mg BEDTIME DANILO Administration Mirtazapine 15 mg 09/27/17 12:00 09/28/17 13:23 Remeron PO 15 mg DAILY@1200 [facility] Administration Mirtazapine 30 mg 09/26/17 21:00 09/27/17 20:50 Remeron PO 30 mg BEDTIME DANILO Administration Non-Formulary Medication 145 mcg 09/27/17 09:00 09/28/17 09:14 Linaclotide [Linzess] PO Not Given DAILY DANILO Non-Formulary Medication 1 tab 09/27/17 09:00 09/28/17 09:15 Papaya [Papaya Enzyme] PO Not Given DAILY DANILO Non-Formulary Medication 1 dose 09/26/17 21:00 09/27/17 21:00 Reti-A 0.1% TOP Not Given BEDTIME DANILO Fentanyl Patch Check 0 each 09/26/17 15:00 09/28/17 09:18 TOP Not Given BID DANILO Oxycodone HCl 20 mg 09/26/17 14:00 09/28/17 16:17 Oxycodone PO 20 mg Q6H PRN Administration Pain Pantoprazole Sodium 40 mg 09/27/17 07:30 09/28/17 07:28 Protonix PO 40 mg ACBREAKFAST DANILO Administration Polyethylene Glycol 17 gm 09/27/17 09:00 09/28/17 09:14 Miralax PO 17 gm DAILY DANILO Administration Potassium Chloride 40 meq 09/27/17 08:00 09/28/17 07:28 Klor-Con M20 PO 40 meq DAILY@0800 DAN[facility]O Administration Senna 8.6 mg 09/27/17 09:00 09/28/17 09:12 Senna PO 8.6 mg DAILY DANILO Administration Sodium Chloride 10 ml 09/26/17 11:39 Saline Flush FLUSH ASDIRECTED PRN Keep Vein Open Spironolactone 100 mg 09/27/17 09:00 09/28/17 09:13 Aldactone PO 100 mg DAILY DANILO Administration Sucralfate 0.5 gm 09/26/17 14:00 09/28/17 13:23 Carafate PO 0.5 gm Q8HR DANILO Administration Thiamine HCl 100 mg 09/26/17 21:00 09/27/17 20:50 Vitamin B-1 PO 100 mg BEDTIME DANILO Administration Triamcinolone Acetonide 0 gm 09/27/17 09:00 09/28/17 09:16 Triamcinolone Acetonide 0.1% Crm TOP 1 applic DAILY DANILO Administration Vitamin B Complex 1 each 09/27/17 09:00 09/28/17 09:17 Vitamin B Complex PO 1 each DAILY DANILO Administration Zolpidem Tartrate 20 mg 09/26/17 11:44 Ambien PO BEDTIME PRN Insomnia Discontinued Medications Generic Name Dose Route Start Last Admin Trade Name Freq PRN Reason Stop Dose Admin Albuterol 2.5 mg 09/26/17 07:13 09/26/17 07:29 Proventil Neb Soln NEB 09/26/17 07:14 2.5 mg ONETIME ONE Administration Albuterol 2.5 mg 09/26/17 10:14 09/26/17 10:47 Proventil Neb Soln NEB 09/26/17 10:15 2.5 mg ONETIME ONE Administration Albuterol 0 gm 09/26/17 11:44 Ventolin Hfa INH Q4H PRN sob Albuterol/Ipratropium 3 ml 09/26/17 06:39 09/27/17 14:46 Duoneb 3.0-0.5 Mg/3 Ml NEB 09/26/17 06:40 3 ml ONETIME ONE Administration Albuterol/Ipratropium 3 ml 09/26/17 11:39 09/27/17 05:01 Duoneb 3.0-0.5 Mg/3 Ml NEB 3 ml QID PRN Administration Shortness Of Breath/wheezing Bacitracin 1 dose 09/26/17 18:51 09/26/17 19:28 Bacitracin Oint 1 Gm TOP 09/26/17 18:52 1 dose ONETIME ONE Administration Benzonatate 200 mg 09/26/17 08:39 09/26/17 09:37 Tessalon Perles PO 09/26/17 08:40 200 mg ONETIME ONE Administration Sodium Chloride 1,000 mls @ 250 mls/hr 09/26/17 10:15 09/26/17 10:47 Normal Saline IV 250 mls/hr ASDIRECTED DANILO Administration Clindamycin Phosphate 600 mg/ 54 mls @ 100 mls/hr 09/26/17 10:45 09/26/17 10: 47 Sodium Chloride IV 09/26/17 11:17 100 mls/hr ONETIME ONE Administration Clindamycin Phosphate 600 mg/ 54 mls @ 100 mls/hr 09/26/17 11:45 09/26/17 16: 35 Sodium Chloride IV Not Given Q8H DANILO Piperacillin/Tazobactam/ 50 mls @ 100 mls/hr 09/26/17 14:00 09/27/17 09:14 Dextrose 3.375 gm/ Premix IV 100 mls/hr Q6H DANILO Administration Potassium Chloride 20 meq/ 112 mls @ 56 mls/hr 09/27/17 09:00 09/27/17 10:40 Lidocaine HCl 2 ml/ Sodium IV 09/27/17 10:59 56 mls/hr Chloride ONETIME ONE Administration Lorazepam 1 mg 09/26/17 06:35 09/26/17 06:42 Ativan IVPUSH 09/26/17 06:36 1 mg ONETIME ONE Administration Lorazepam 0.5 mg 09/26/17 07:32 09/26/17 08:05 Ativan IVPUSH 09/26/17 07:33 0.5 mg ONETIME ONE Administration Methylprednisolone Sodium Succinate 125 mg 09/26/17 07:12 09/26/17 07:22 Solu-Medrol IVPUSH 09/26/17 07:13 125 mg ONETIME ONE Administration Potassium Chloride 20 meq 09/27/17 08:00 Klor-Con M20 PO DAILY@0800 DANILO Potassium Chloride 40 meq 09/27/17 18:00 09/27/17 17:07 Klor-Con M20 PO 09/27/17 18:01 40 meq ONETIME ONE Administration Sodium Chloride 10 ml 09/26/17 06:37 09/26/17 06:47 Saline Flush FLUSH 10 ml ASDIRECTED PRN Administration Keep Vein Open - Radiology Interpretation Free Text/Narrative:: CXR- Departure - Departure Disposition: Admitted As Inpatient 64 Clinical Impression: Bronchospasm, Acute aspiration pneumonia - Discharge Information <Jen Randhawa - Last Filed: 09/28/17 18:15> ED HPI GENERAL MEDICAL PROBLEM Right Hip Pain Score (Numeric/FACES): 7 Bilateral Leg Pain Score (Numeric/FACES): 8 Course - Re-Assessments/Exams Free Text/Narrative Re-Assessment/Exam: 09/26/17 10:15 when the coughin started she coughed up alot of stuff. Some looked like oatmeal.. She developed nonstop coughing and was very tight in her chest. She did maintain good oxgenation on 4 liters of o2. She normally uses 2 liters at home. She did receive 3 nebs, solumedrol and ativan and she is doing much better. Her chest xray does look like she could have asperated. By history it sounds like she asperated. Departure - Departure Time of Disposition: 10:18 Condition: Fair
[2017-09-26] MEDS ORDERED: methylPREDNISolone Sodium Succinate 125 MG/2 ML SDV IVPUSH ONE (07:12)
[2017-09-26] MEDS ORDERED: Albuterol 0.083% 2.5 MG/3 ML Neb Soln NEB ONE ×2 (07:13→10:14)
[2017-09-26] MEDS ORDERED: Benzonatate 100 MG Cap PO ONE (08:39)
[2017-09-26] MEDS ORDERED: Sodium Chloride 0.9% 1,000 ML IV SCH (10:15)
[2017-09-26] MEDS ORDERED: LORazepam 2 MG/ML SDV IV PRN (11:39)
[2017-09-26] MEDS ORDERED: Albuterol 8 GM Inhaler INH PRN (11:44)
[2017-09-26] MEDS ORDERED: Cyclobenzaprine 10 MG Tab PO PRN (11:44)
[2017-09-26] MEDS ORDERED: Fluticasone Propionate Nasal Spray 16 GM Bottle NASBOTH PRN (11:44)
[2017-09-26] MEDS ORDERED: Meclizine 25 MG Tab PO PRN (11:44)
[2017-09-26] MEDS ORDERED: Zolpidem 5 MG Tab PO PRN (11:44)
--- NOTE | 2017-09-26 12:41 | PCM.HP ---
H&P History of Present Illness - General Date of Service: 09/26/17 Admit Problem/Dx: Admission Diagnosis/Problem Admission Diagnosis/Problem Aspiration pneumonia Source of Information: Patient, Family, Old Records, RN Notes Reviewed History Limitations: Reports: No Limitations - History of Present Illness Initial Comments - Free Text/Narative: 42-year-old female presented to the emergency department this morning with complaint of shortness of breath with cough, she has a known history of oxygen dependence at night admits over the last couple days she's had increasing cough and sputum production, sputum today started to turn green she feels she has been aspirating more for secretions over the last couple of days. Upon presentation to the emergency department she was hypoxic with cough so severe unable to respond in single word sentences. After initial stabilization in the emergency department she is able to speak in full sentences still has intermittent cough but denies any fevers chest pain no or GI symptomatologies - Related Data Allergies/Adverse Reactions: Allergies Allergy/AdvReac Type Severity Reaction Status Date / Time codeine Allergy Rash Verified 09/26/17 06:33 metal Allergy Rash Uncoded 10/25/16 17:56 Home Medications: Home Meds ALPRAZolam [Xanax] 2 mg PO TID 05/22/14 [History] Cholecalciferol (Vitamin D3) [Vitamin D3] 2,000 unit PO DAILY 05/22/14 [History] ClonazePAM [KlonoPIN] 2 mg PO BEDTIME 05/22/14 [History] Cyanocobalamin (Vitamin B12) [Vitamin B12] 1,000 mcg IJ ASDIRECTED 05/22/14 [ History] Cyclobenzaprine [Flexeril] 10 mg PO Q8HR PRN 05/22/14 [History] FLUoxetine [PROzac] 80 mg PO DAILY 05/22/14 [History] Ferrous Fumarate-Vit [id number] 1 tab PO DAILY 05/22/14 [History] Fluticasone Propionate [Flonase] 1 spray TOP ASDIRECTED PRN 05/22/14 [History] Folic Acid 1 mg PO DAILY 05/22/14 [History] Furosemide [Lasix] 80 mg PO BID 05/22/14 [History] Meclizine [Antivert] 25 mg PO TID PRN 05/22/14 [History] Mirtazapine [Remeron] 15 mg PO ASDIRECTED PRN 05/22/14 [History] Omeprazole [Prilosec] 40 mg PO DAILY 05/22/14 [History] Polyethylene Glycol 3350 [MiraLAX] 17 gm PO DAILY 05/22/14 [History] Reti-A 0.1% 1 dose TOP BEDTIME 05/22/14 [History] Spironolactone [Aldactone] 100 mg PO DAILY 05/22/14 [History] Sucralfate [Carafate] 0.5 gm PO Q8HR 05/22/14 [History] Thiamine Mononitrate [Vitamin B-1] 100 mg PO BEDTIME 05/22/14 [History] Triamcinolone Acetonide [Kenalog 0.1% Crm] 80 gm .XX ASDIRECTED 05/22/14 [ History] Vitamin B Complex [B Complex] 1 tab PO DAILY 05/22/14 [History] Zolpidem [Ambien] 20 mg PO BEDTIME PRN 05/22/14 [History] buPROPion HCl [Wellbutrin Xl] 300 mg PO DAILY 05/22/14 [History] fentaNYL [Duragesic] 50 mcg TD Q48H 05/22/14 [History] fentaNYL [Duragesic] 100 mcg TD Q48H 05/22/14 [History] lamoTRIgine [Lamictal] 200 mg PO DAILY 05/22/14 [History] oxyCODONE HCl [Oxycodone HCl] 20 mg PO Q6HR PRN 05/22/14 [History] Mirtazapine [Remeron] 30 mg PO BEDTIME 09/25/15 [History] Aspirin 325 mg PO DAILY 07/23/16 [History] Linaclotide [Linzess] 145 mcg PO DAILY 07/23/16 [History] Sennosides [Senna] 8.6 oz PO DAILY 07/23/16 [History] Albuterol [Ventolin HFA] 2 puff INH Q4H PRN 09/26/17 [History] Dextroamphetamine/Amphetamine [Adderall 20 mg Tablet] 1 tab PO BID 09/26/17 [ History] Ferrous Fumarate/Vitamin C [Vitron-C] 1 tab PO DAILY 09/26/17 [History] Magnesium Oxide [Magnesium] 1 cap PO DAILY 09/26/17 [History] Melatonin 2 tab PO DAILY 09/26/17 [History] Naproxen 1 tab PO DAILY 09/26/17 [History] Papaya [Papaya Enzyme] 1 tab PO DAILY 09/26/17 [History] Potassium Chloride [Klor-Con] 1 tab PO DAILY 09/26/17 [History] Past Medical History Cardiovascular History: Reports: Heart Failure Respiratory History: Reports: Asthma Gastrointestinal History: Reports: GERD 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 History: Reports: Renal Calculus 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 wearing a sling. Chronic left hip problems secondary to multiple surgeries Neurological History: Reports: Brain Injury, Seizure Psychiatric History: Reports: ADD, Addiction, Bipolar, Depression Hematologic History: Reports: Other (See Below) Other Hematologic History: blood type A Pos, anti K - Infectious Disease History Infectious Disease History: Reports: Chicken Pox, MRSA Other Infectious Disease History: MRSA right ankle, left hip - Past Surgical History GI Surgical History: Reports: Appendectomy, Cholecystectomy, Other (See Below) Other GI Surgeries/Procedures: RNY Female Surgical History: Reports: Hysterectomy, Oophorectomy Musculoskeletal Surgical History: Reports: Hip Replacement Other Musculoskeletal Surgeries/Procedures:: broken back and hips. Surgery to both. Social & Family History - Family History Family Medical History: Noncontributory - Tobacco Use Smoking Status *Q: Current Status Unknown - Caffeine Use Caffeine Use: Reports: Soda - Recreational Drug Use Recreational Drug Use: No H&P Review of Systems - Review of Systems: Review Of Systems: See Below General: Reports: No Symptoms HEENT: Reports: No Symptoms Pulmonary: Reports: Shortness of Breath, Wheezing, Pleuritic Chest Pain, Cough, Sputum Cardiovascular: Reports: No Symptoms Gastrointestinal: Reports: No Symptoms 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: Reports: No Symptoms Musculoskeletal: Reports: No Symptoms Skin: Reports: No Symptoms Psychiatric: Reports: No Symptoms Neurological: Reports: No Symptoms Exam - Exam Exam: See Below - Vital Signs Vital Signs: Last Vital Signs Temp 99.2 F 09/26/17 06:25 Pulse 93 09/26/17 10:48 Resp 16 09/26/17 10:48 BP 143/59 H 09/26/17 10:48 Pulse Ox 95 09/26/17 10:48 Weight: 153 kg - Exam Physical Exam Comments:: General: Female, not in any distress, alert and oriented x3 HEENT: head is atraumatic normocephalic, eyes pupils equal round reactive to light, sclera clear no conjunctivitis appreciated. Ears tympanic membranes clear and [place] landmarks and light reflex are present bilaterally canals are clear. Nose no septal deviation, nares are clear, no blood present. Mouth mucosa is moist and pink no erythema or exudate noted in soft palate, tongue is midline uvula is midline, dentition is poor. Neck: Supple no thyromegaly no tracheal deviation. Nodes: Cervical nodes subclavicular nodes nontender no palpable lymphadenopathy noted. Lungs: clear to auscultation bilaterally with symmetrical respirations, no adventitious noise appreciated. CV: Regular rate and rhythm S1 and S2 appreciated no murmurs rubs or gallops noted. Abdomen: Soft, nontender, no palpable masses or organomegaly appreciated, no distention no guarding bowel sounds are present, . Neuro: Cranial nerves II through XII grossly intact Skin: Warm and dry, intact Extremities: No lower extremity edema appreciated, pedal pulse is +2. - Patient Data Lab Results Last 24 hrs: Laboratory Results - last 24 hr 09/26/17 09/26/17 09/26/17 Range/Units 06:48 06:48 06:48 WBC (4.5-11.0) K/uL RBC (3.30-5.50) M/uL Hgb (12.0-15.0) g/dL Hct (36.0-48.0) % MCV (80-98) fL MCH (27-31) pg MCHC (32-36) % Plt Count (150-400) K/uL Puncture Site ABG pH (7.350-7.450) ABG pCO2 (35.0-42.0) mmHg ABG pO2 (75.0-100.0) mmHg ABG HCO3 (22.0-26.0) mmol/L ABG Total CO2 (21.0-25.0) mmol/L ABG O2 Saturation (95.0-98.0) % ABG O2 Content (15.0-23.0) %vol ABG Base Excess mm/L ABG Hemoglobin (12.0-16.0) g/dL ABG Oxyhemoglobin % ABG Carboxyhemoglobin (0.0-1.6) % ABG Methemoglobin % Timothy Test O2 Delivery Device Oxygen Flow Rate L Sodium (140-148) mmol/L Potassium (3.6-5.2) mmol/L Chloride (100-108) mmol/L Carbon Dioxide (21-32) mmol/L Anion Gap (5.0-14.0) mmol/L BUN (7-18) mg/dL Creatinine (0.6-1.0) mg/dL Est Cr Clr Drug Dosing mL/min Estimated GFR (MDRD) (>60) Glucose (74-106) mg/dL Calcium (8.5-10.1) mg/dL Total Bilirubin 0.3 (0.2-1.0) mg/dL Direct Bilirubin 0.17 (0.0-0.2) mg/dL Indirect Bilirubin 0.13 AST 45 H (15-37) U/L ALT 28 (12-78) U/L Alkaline Phosphatase 202 H (46-116) U/L NT-Pro-B Natriuret Pep 100 (5-125) pg/mL Total Protein 7.8 (6.4-8.2) g/dL Albumin 4.0 (3.4-5.0) g/dL Globulin 3.8 H (2.3-3.5) g/dL Albumin/Globulin Ratio 1.1 L (1.2-2.2) Urine Color Urine Appearance Urine pH (4.5-8.0) Ur Specific [place] (1.008-1.030) Urine Protein (NEGATIVE) mg/dL Urine Glucose (UA) (NEGATIVE) mg/dL Urine Ketones (NEGATIVE) mg/dL Urine Occult Blood (NEGATIVE) Urine Nitrite (NEGATIVE) Urine Bilirubin (NEGATIVE) Urine Urobilinogen (NORMAL) mg/dL Ur Leukocyte Esterase (NEGATIVE) Urine RBC (0-5) Urine WBC (0-5) Ur Epithelial Cells Amorphous Sediment Urine Bacteria Urine Mucus Urine Opiates Screen (NEGATIVE) Ur Oxycodone Screen (NEGATIVE) Urine Methadone Screen (NEGATIVE) Ur Propoxyphene Screen (NEGATIVE) Ur Barbiturates Screen (NEGATIVE) Ur Tricyclics Screen (NEGATIVE) Ur Phencyclidine Scrn (NEGATIVE) Ur Amphetamine Screen (NEGATIVE) U Methamphetamines Scrn (NEGATIVE) Urine MDMA Screen (NEGATIVE) U Benzodiazepines Scrn (NEGATIVE) U Cocaine Metab Screen (NEGATIVE) U Marijuana (THC) Screen (NEGATIVE) Ethyl Alcohol < 3 mg/dL 09/26/17 09/26/17 09/26/17 Range/Units 06:50 06:50 07:20 WBC 7.1 (4.5-11.0) K/uL RBC 4.75 (3.30-5.50) M/uL Hgb 13.9 (12.0-15.0) g/dL Hct 42.9 (36.0-48.0) % MCV 90 (80-98) fL MCH 29 (27-31) pg MCHC 32 (32-36) % Plt Count 353 (150-400) K/uL Puncture Site Rt radial ABG pH 7.430 (7.350-7.450) ABG pCO2 40.4 (35.0-42.0) mmHg ABG pO2 100.0 (75.0-100.0) mmHg ABG HCO3 26.3 H (22.0-26.0) mmol/L ABG Total CO2 23.0 (21.0-25.0) mmol/L ABG O2 Saturation 96.7 (95.0-98.0) % ABG O2 Content 18.9 (15.0-23.0) %vol ABG Base Excess 2.3 mm/L ABG Hemoglobin 14.1 (12.0-16.0) g/dL ABG Oxyhemoglobin 94.8 % ABG Carboxyhemoglobin 0.6 (0.0-1.6) % ABG Methemoglobin 1.4 % Timothy Test Pass O2 Delivery Device Nasal cannula Oxygen Flow Rate 4 L Sodium 136 L (140-148) mmol/L Potassium 3.9 (3.6-5.2) mmol/L Chloride 97 L (100-108) mmol/L Carbon Dioxide 27 (21-32) mmol/L Anion Gap 15.9 H (5.0-14.0) mmol/L BUN 19 H D (7-18) mg/dL Creatinine 1.1 H D (0.6-1.0) mg/dL Est Cr Clr Drug Dosing 58.73 mL/min Estimated GFR (MDRD) 54 L (>60) Glucose 155 H (74-106) mg/dL Calcium 9.4 (8.5-10.1) mg/dL Total Bilirubin (0.2-1.0) mg/dL Direct Bilirubin (0.0-0.2) mg/dL Indirect Bilirubin AST (15-37) U/L ALT (12-78) U/L Alkaline Phosphatase (46-116) U/L NT-Pro-B Natriuret Pep (5-125) pg/mL Total Protein (6.4-8.2) g/dL Albumin (3.4-5.0) g/dL Globulin (2.3-3.5) g/dL Albumin/Globulin Ratio (1.2-2.2) Urine Color Urine Appearance Urine pH (4.5-8.0) Ur Specific [place] (1.008-1.030) Urine Protein (NEGATIVE) mg/dL Urine Glucose (UA) (NEGATIVE) mg/dL Urine Ketones (NEGATIVE) mg/dL Urine Occult Blood (NEGATIVE) Urine Nitrite (NEGATIVE) Urine Bilirubin (NEGATIVE) Urine Urobilinogen (NORMAL) mg/dL Ur Leukocyte Esterase (NEGATIVE) Urine RBC (0-5) Urine WBC (0-5) Ur Epithelial Cells Amorphous Sediment Urine Bacteria Urine Mucus Urine Opiates Screen (NEGATIVE) Ur Oxycodone Screen (NEGATIVE) Urine Methadone Screen (NEGATIVE) Ur Propoxyphene Screen (NEGATIVE) Ur Barbiturates Screen (NEGATIVE) Ur Tricyclics Screen (NEGATIVE) Ur Phencyclidine Scrn (NEGATIVE) Ur Amphetamine Screen (NEGATIVE) U Methamphetamines Scrn (NEGATIVE) Urine MDMA Screen (NEGATIVE) U Benzodiazepines Scrn (NEGATIVE) U Cocaine Metab Screen (NEGATIVE) U Marijuana (THC) Screen (NEGATIVE) Ethyl Alcohol mg/dL 09/26/17 09/26/17 Range/Units 08:07 08:07 WBC (4.5-11.0) K/uL RBC (3.30-5.50) M/uL Hgb (12.0-15.0) g/dL Hct (36.0-48.0) % MCV (80-98) fL MCH (27-31) pg MCHC (32-36) % Plt Count (150-400) K/uL Puncture Site ABG pH (7.350-7.450) ABG pCO2 (35.0-42.0) mmHg ABG pO2 (75.0-100.0) mmHg ABG HCO3 (22.0-26.0) mmol/L ABG Total CO2 (21.0-25.0) mmol/L ABG O2 Saturation (95.0-98.0) % ABG O2 Content (15.0-23.0) %vol ABG Base Excess mm/L ABG Hemoglobin (12.0-16.0) g/dL ABG Oxyhemoglobin % ABG Carboxyhemoglobin (0.0-1.6) % ABG Methemoglobin % Timothy Test O2 Delivery Device Oxygen Flow Rate L Sodium (140-148) mmol/L Potassium (3.6-5.2) mmol/L Chloride (100-108) mmol/L Carbon Dioxide (21-32) mmol/L Anion Gap (5.0-14.0) mmol/L BUN (7-18) mg/dL Creatinine (0.6-1.0) mg/dL Est Cr Clr Drug Dosing mL/min Estimated GFR (MDRD) (>60) Glucose (74-106) mg/dL Calcium (8.5-10.1) mg/dL Total Bilirubin (0.2-1.0) mg/dL Direct Bilirubin (0.0-0.2) mg/dL Indirect Bilirubin AST (15-37) U/L ALT (12-78) U/L Alkaline Phosphatase (46-116) U/L NT-Pro-B Natriuret Pep (5-125) pg/mL Total Protein (6.4-8.2) g/dL Albumin (3.4-5.0) g/dL Globulin (2.3-3.5) g/dL Albumin/Globulin Ratio (1.2-2.2) Urine Color Yellow Urine Appearance Cloudy Urine pH 5.0 (4.5-8.0) Ur Specific [place] 1.010 (1.008-1.030) Urine Protein Negative (NEGATIVE) mg/dL Urine Glucose (UA) Normal (NEGATIVE) mg/dL Urine Ketones Negative (NEGATIVE) mg/dL Urine Occult Blood Negative (NEGATIVE) Urine Nitrite Negative (NEGATIVE) Urine Bilirubin Negative (NEGATIVE) Urine Urobilinogen Normal (NORMAL) mg/dL Ur Leukocyte Esterase Large (NEGATIVE) Urine RBC 0-5 (0-5) Urine WBC 10-20 H (0-5) Ur Epithelial Cells Rare Amorphous Sediment Not seen Urine Bacteria Many Urine Mucus Not seen Urine Opiates Screen Negative (NEGATIVE) Ur Oxycodone Screen Positive H (NEGATIVE) Urine Methadone Screen Negative (NEGATIVE) Ur Propoxyphene Screen Negative (NEGATIVE) Ur Barbiturates Screen Negative (NEGATIVE) Ur Tricyclics Screen Positive H (NEGATIVE) Ur Phencyclidine Scrn Negative (NEGATIVE) Ur Amphetamine Screen Negative (NEGATIVE) U Methamphetamines Scrn Negative (NEGATIVE) Urine MDMA Screen Negative (NEGATIVE) U Benzodiazepines Scrn Positive H (NEGATIVE) U Cocaine Metab Screen Negative (NEGATIVE) U Marijuana (THC) Screen Negative (NEGATIVE) Ethyl Alcohol mg/dL Result Diagrams: 09/26/17 06:50 09/26/17 06:50 *Q Meaningful Use (ADM) - VTE Risk Assess *Q Each Risk Factor Represents 1 Point: Age 41 - 59 years, Congestive heart failure (CHF), Medical Patient Currently on Bedrest Total Score 1 Point Risk Factors: 3 - Problem List (1) Acute aspiration pneumonia SNOMED Code(s): 07665019247295 ICD Code: J69.0 - PNEUMONITIS DUE TO INHALATION OF FOOD AND VOMIT Status: Acute Priority: High Current Visit: Yes (2) History of MRSA infection SNOMED Code(s): 677488134, [id number] ICD Code: Z86.14 - PERSONAL HISTORY OF METHICILLIN RESIS STAPH INFECTION Status: Acute Priority: Medium Current Visit: No Problem List Initiated/Reviewed/Updated: Yes Orders Last 24hrs: Active Orders 24 hr Category Date Time Status Patient Status [ADT] Routine ADT 09/26/17 11:39 Active EKG Documentation Completion [RC] ASDIRECTED Care 09/26/17 07:10 Active Height and Weight [RC] DAILY Care 09/26/17 11:39 Active Intake and Output [RC] QSHIFT Care 09/26/17 11:41 Active May Shower [RC] ASDIRECTED Care 09/26/17 11:39 Active Oxygen Therapy [RC] PRN Care 09/26/17 11:39 Active Pulse Oximetry [RC] PRN Care 09/26/17 11:41 Active RT Aerosol Therapy [RC] ASDIRECTED Care 09/26/17 06:39 Active RT Aerosol Therapy [RC] ASDIRECTED Care 09/26/17 07:14 Active RT Aerosol Therapy [RC] ASDIRECTED Care 09/26/17 10:14 Active RT Aerosol Therapy [RC] ASDIRECTED Care 09/26/17 11:43 Active Up With Assistance [RC] ASDIRECTED Care 09/26/17 11:39 Active VTE/DVT Education [RC] Per Unit Routine Care 09/26/17 11:39 Active Vital Signs [RC] Q4H Care 09/26/17 11:39 Active 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 [CONS] Routine Cons 09/26/17 12:09 Ordered Regular Diet [DIET] Diet 09/26/17 Lunch Active Chest 1V Frontal [CR] Stat Exams 09/26/17 06:36 Taken Chest 2V [CR] Stat Exams 09/26/17 09:05 Taken Hip Min 2V or 3V w Pelvis Lt [CR] Stat Exams 09/26/17 07:45 Taken CBC WITH AUTO DIFF [HEME] AM Lab 09/27/17 05:11 Ordered COMPREHENSIVE METABOLIC PN,CMP [CHEM] AM Lab 09/27/17 05:11 Ordered CULTURE URINE [RM] Stat Lab 09/26/17 07:58 Received DRUG SCREEN, URINE [URCHEM] Stat Lab 09/26/17 08:07 Ordered UA W/MICROSCOPIC [URIN] Urgent Lab 09/26/17 08:07 Ordered ALPRAZolam [Xanax] Med 09/26/17 14:00 Ordered 2 mg PO TID Albuterol [Ventolin HFA] Med 09/26/17 11:44 Ordered DOSE gm INH Q4H PRN Albuterol/Ipratropium [DuoNeb 3.0-0.5 MG/3 ML] Med 09/26/17 11:39 Active 3 ml NEB QID PRN Aspirin [Aspirin] Med 09/27/17 09:00 Ordered 325 mg PO DAILY Cholecalciferol (Vitamin D3) [Vitamin D3] Med 09/27/17 09:00 Ordered 2,000 unit PO DAILY ClonazePAM [KlonoPIN] Med 09/26/17 21:00 Ordered 2 mg PO BEDTIME Cyanocobalamin (Vitamin B12) [Vitamin B12] Med 09/26/17 11:45 Ordered 1,000 mcg IM ASDIRECTED Cyclobenzaprine [Flexeril] Med 09/26/17 11:44 Ordered 10 mg PO Q8HR PRN Dextroamphetamine/Amphetamine [Adderall 20 mg Tablet] Med 09/26/17 21:00 Ordered 1 tab PO BID Enoxaparin [Lovenox] Med 09/27/17 09:00 Ordered 30 mg SUBCUT DAILY FLUoxetine [PROzac] Med 09/27/17 09:00 Ordered 80 mg PO DAILY Ferrous Fumarate-Vit [id number] Med 09/27/17 09:00 Ordered 1 tab PO DAILY Ferrous Fumarate/Vitamin C [Vitron-C] Med 09/27/17 09:00 Ordered 1 tab PO DAILY Fluticasone Propionate [Flonase] Med 09/26/17 11:44 Ordered DOSE gm NASBOTH ASDIRECTED PRN Folic Acid Med 09/27/17 09:00 Ordered 1 mg PO DAILY Furosemide [Lasix] Med 09/26/17 21:00 Ordered 80 mg PO BID LORazepam [Ativan] Med 09/26/17 11:39 Ordered 1 mg IV Q2H PRN Linaclotide [Linzess] Med 09/27/17 09:00 Ordered 145 mcg PO DAILY Magnesium Oxide Med 09/27/17 09:00 Ordered DOSE mg PO DAILY Meclizine [Antivert] Med 09/26/17 11:44 Ordered 25 mg PO TID PRN Melatonin [Melatonin] Med 09/27/17 09:00 Ordered 2 tab PO DAILY Mirtazapine [Remeron] Med 09/26/17 11:44 Ordered 15 mg PO ASDIRECTED PRN Mirtazapine [Remeron] Med 09/26/17 21:00 Ordered 30 mg PO BEDTIME Omeprazole [Prilosec] Med 09/27/17 09:00 Ordered 40 mg PO DAILY Papaya [Papaya Enzyme] Med 09/27/17 09:00 Ordered 1 tab PO DAILY Piperacillin/Tazobactam [Zosyn] 3.375 gm Med 09/26/17 12:45 Ordered Sodium Chloride 0.9% [Normal Saline] 50 ml IV Q6H Polyethylene Glycol 3350 [MiraLAX] Med 09/27/17 09:00 Ordered 17 gm PO DAILY Potassium Chloride [Klor-Con] Med 09/27/17 09:00 Ordered 1 tab PO DAILY Reti-A 0.1% Med 09/26/17 21:00 Ordered 1 dose TOP BEDTIME Sennosides [Senna] Med 09/27/17 09:00 Ordered DOSE mg PO DAILY Sodium Chloride 0.9% [Normal Saline] 1,000 ml Med 09/26/17 10:15 Active IV ASDIRECTED Sodium Chloride 0.9% [Saline Flush] Med 09/26/17 06:37 Active 10 ml FLUSH ASDIRECTED PRN Sodium Chloride 0.9% [Saline Flush] Med 09/26/17 11:39 Ordered 10 ml FLUSH ASDIRECTED PRN Spironolactone [Aldactone] Med 09/27/17 09:00 Ordered 100 mg PO DAILY Sucralfate [Carafate] Med 09/26/17 14:00 Ordered 0.5 gm PO Q8HR Thiamine Mononitrate [Vitamin B-1] Med 09/26/17 21:00 Ordered 100 mg PO BEDTIME Triamcinolone Acetonide [Kenalog 0.1% Crm] Med 09/26/17 11:45 Ordered 80 gm .XX ASDIRECTED Vitamin B Complex Med 09/27/17 09:00 Ordered DOSE each PO DAILY Zolpidem [Ambien] Med 09/26/17 11:44 Ordered 20 mg PO BEDTIME PRN buPROPion [Wellbutrin XL] Med 09/27/17 09:00 Active 300 mg PO DAILY fentaNYL [Duragesic] Med 09/26/17 11:45 Ordered 100 mcg TRDERM Q48H fentaNYL [Duragesic] Med 09/26/17 11:45 Ordered 50 mcg TRDERM Q48H lamoTRIgine Med 09/27/17 09:00 Ordered 200 mg PO DAILY oxyCODONE HCl [Oxycodone HCl] Med 09/26/17 11:44 Ordered 20 mg PO Q6HR PRN Saline Lock Insert [OM.PC] Routine Oth 09/26/17 06:37 Ordered Saline Lock Insert [OM.PC] Routine Oth 09/26/17 11:39 Ordered Resuscitation Status Routine Resus Stat 09/26/17 11:39 Ordered EKG 12 Lead [EK] Routine Ther 09/26/17 07:10 Ordered Medication Orders Albuterol (Ventolin Hfa) gm INH Q4H PRN PRN Reason: sob Albuterol/Ipratropium (Duoneb 3.0-0.5 Mg/3 Ml) 3 ml NEB QID PRN PRN Reason: Shortness Of Breath/wheezing Bupropion HCl (Wellbutrin Xl) 300 mg PO DAILY [facility] Clonazepam (Klonopin) 2 mg PO BEDTIME [facility] Cyanocobalamin (Vitamin B12) 1,000 mcg IM ASDIRECTED [facility] Cyclobenzaprine HCl (Flexeril) 10 mg PO Q8HR PRN PRN Reason: Muscle Spasm Enoxaparin Sodium (Lovenox) 30 mg SUBCUT DAILY [facility] Fentanyl (Duragesic) 50 mcg TRDERM Q48H [facility] Fentanyl (Duragesic) 100 mcg TRDERM Q48H [facility] Fluoxetine HCl (Prozac) 80 mg PO DAILY [facility] Fluticasone Propionate (Flonase) gm NASBOTH ASDIRECTED PRN PRN Reason: Allergies Folic Acid (Folic Acid) 1 mg PO DAILY [facility] Sodium Chloride (Normal Saline) 1,000 mls @ 250 mls/hr IV ASDIRECTED [facility]AN[facility] Last Admin: 09/26/17 10:47 Dose: 250 mls/hr Piperacillin Sod/Tazobactam (Sod 3.375 gm/ Sodium Chloride) 50 mls @ 100 mls/ hr IV Q6H [facility] Iron/Vitamin C (Vitron-C) 1 tab PO DAILY [facility] Lamotrigine (Lamotrigine) 200 mg PO DAILY [facility] Lorazepam (Ativan) 1 mg IV Q2H PRN PRN Reason: Cough Magnesium Oxide (Magnesium Oxide) mg PO DAILY [facility] Meclizine HCl (Antivert) 25 mg PO TID PRN PRN Reason: Dizziness Non-Formulary Medication (Alprazolam [Xanax]) 2 mg PO TID [facility] Non-Formulary Medication (Aspirin [Aspirin]) 325 mg PO DAILY [facility] Non-Formulary Medication (Cholecalciferol (Vitamin D3) [Vitamin D3]) 2,000 unit PO DAILY [facility] Non-Formulary Medication (Dextroamphetamine/Amphetamine [Adderall 20 Mg Tablet] ) 1 tab PO BID [facility] Non-Formulary Medication (Ferrous Fumarate-Vit [id number]) 1 tab PO DAILY [facility] Non-Formulary Medication (Furosemide [Lasix]) 80 mg PO BID [facility] Non-Formulary Medication (Linaclotide [Linzess]) 145 mcg PO DAILY [facility] Non-Formulary Medication (Melatonin [Melatonin]) 2 tab PO DAILY [facility] Non-Formulary Medication (Mirtazapine [Remeron]) 15 mg PO ASDIRECTED PRN PRN Reason: Anxiety Non-Formulary Medication (Mirtazapine [Remeron]) 30 mg PO BEDTIME [facility] Non-Formulary Medication (Omeprazole [Prilosec]) 40 mg PO DAILY [facility] Non-Formulary Medication (Oxycodone Hcl [Oxycodone Hcl]) 20 mg PO Q6HR PRN PRN Reason: Pain Non-Formulary Medication (Papaya [Papaya Enzyme]) 1 tab PO DAILY [facility] Non-Formulary Medication (Potassium Chloride [Klor-Con]) 1 tab PO DAILY [facility] Non-Formulary Medication (Reti-A 0.1%) 1 dose TOP BEDTIME [facility] Non-Formulary Medication (Spironolactone [Aldactone]) 100 mg PO DAILY [facility] Non-Formulary Medication (Thiamine Mononitrate [Vitamin B-1]) 100 mg PO BEDTIME [facility] Polyethylene Glycol (Miralax) 17 gm PO DAILY [facility] Senna (Senna) mg PO DAILY [facility] Sodium Chloride (Saline Flush) 10 ml FLUSH ASDIRECTED PRN PRN Reason: Keep Vein Open Last Admin: 09/26/17 06:47 Dose: 10 ml Sodium Chloride (Saline Flush) 10 ml FLUSH ASDIRECTED PRN PRN Reason: Keep Vein Open Sucralfate (Carafate) 0.5 gm PO Q8HR DANILO Triamcinolone Acetonide (Kenalog 0.1% Crm) 80 gm .XX ASDIRECTED DANILO Vitamin B Complex (Vitamin B Complex) each PO DAILY DANILO Zolpidem Tartrate (Ambien) 20 mg PO BEDTIME PRN PRN Reason: Insomnia Assessment/Plan Comment:: ASSESMENT / Plan: Aspiration pneumonia - start antibiotics of Zosyn -Swallow study ordered for the morning -O2 pulse ox as needed -Supplemental oxygen as needed -Received 1 dose of Solu-Medrol in the emergency department, hold steroids for now MAINTENANCE ISSUES -DVT prophylaxis will use Lovenox -GI prophylaxis: None indicated - Nutrition: Regular diet CODE STATUS-FULL CODE ADMISSION STATUS-she will be admitted observation status, expect less than a 2 night hospital stay for evaluation and management of aspiration pneumonia. At the time of this admission I do not reasonably expected evaluation and management of these problems will require more than a 96 hour hospital stay. Disposition: Anticipate discharge to home after completion of hospital stay PRIMARY CARE PROVIDER- Dr. Whalen
[2017-09-26] MEDS: Amphetamine/Dextroamphetamine Salts 10 MG Tab PO SCH (15:37)
[2017-09-26] MEDS: Furosemide 40 MG Tab PO SCH (15:38)
[2017-09-26] MEDS: Sucralfate 1 GM Tab PO SCH ×2 (15:38→23:28)
[2017-09-26] MEDS: ALPRAZolam 0.5 MG Tab PO SCH ×2 (15:45→23:29)
[2017-09-26] MEDS: Piperacillin/Tazobactam/Dext 3.375 GM in Premix Bag 1 BAG IV SCH ×2 (16:50→19:28)
[2017-09-26] MEDS: oxyCODONE 5 MG Tab PO PRN ×2 (17:29→23:30)
[2017-09-26] MEDS: Enoxaparin 40 MG/0.4 ML Syringe SUBCUT SCH (17:40)
[2017-09-26] MEDS ORDERED: Bacitracin Oint 1 GM U/D Packet TOP ONE (18:51)
[2017-09-26] MEDS: FENTANYL PATCH CHECK TOP SCH (23:26)
[2017-09-26] MEDS: Melatonin 3 MG Tab PO SCH (23:28)
[2017-09-26] MEDS: Mirtazapine 15 MG Tab PO SCH (23:29)
[2017-09-26] MEDS: ClonazePAM 1 MG Tab PO SCH (23:29)
[2017-09-26] MEDS: Thiamine 100 MG Tab PO SCH (23:29)
[2017-09-27] MEDS: Albuterol/Ipratropium 3.0-0.5 MG/3 ML Neb Soln NEB PRN ×2 (00:34→05:01)
[2017-09-27] MEDS: Piperacillin/Tazobactam/Dext 3.375 GM in Premix Bag 1 BAG IV SCH ×2 (01:31→09:14)
[2017-09-27] MEDS ORDERED: Albuterol 0.083% 2.5 MG/3 ML Neb Soln NEB PRN (02:35)
--- NOTE | 2017-09-27 02:42 | PCM.SN ---
- Free Text/Narrative Note: time: 02:30 am, call from [facility], requesting nebulizer for cough O: cough til emesis A:pneumonia P:order Albuterol neb every 4 hours prn, Tessalon perles every 8 hr prn . continue present plan of care.
[2017-09-27] MEDS: Benzonatate 100 MG Cap PO PRN ×2 (03:02→20:40)
[2017-09-27] MEDS: Benzocaine/Cetylpyridinium/Menthol Lozenge MUCMEM PRN (04:38)
[2017-09-27] MEDS: Sucralfate 1 GM Tab PO SCH ×3 (05:06→21:55)
[2017-09-27] MEDS: oxyCODONE 5 MG Tab PO PRN ×3 (05:50→21:26)
[2017-09-27] MEDS ORDERED: Potassium Chloride 20 MEQ Tab.ER PO SCH (08:00)
[2017-09-27] MEDS: Cholecalciferol (Vitamin D3) 1,000 Unit Tab PO SCH (08:21)
[2017-09-27] MEDS: FLUoxetine 20 MG Cap PO SCH (08:21)
[2017-09-27] MEDS: Furosemide 40 MG Tab PO SCH ×2 (08:21→14:39)
[2017-09-27] MEDS: Sennosides 8.6 MG Tab PO SCH (08:21)
[2017-09-27] MEDS: Pantoprazole 40 MG Tab.CR PO SCH (08:21)
[2017-09-27] MEDS: Ferrous Fumarate/Vitamin C 200-125 MG Tab PO SCH (08:21)
[2017-09-27] MEDS: Folic Acid 1 MG Tab PO SCH (08:22)
[2017-09-27] MEDS: lamoTRIgine 100 MG Tab PO SCH (08:22)
[2017-09-27] MEDS: Spironolactone 25 MG Tab PO SCH (08:22)
[2017-09-27] MEDS: Magnesium Oxide 400 MG Tab PO SCH (08:22)
[2017-09-27] MEDS: Aspirin 325 MG Tab.EC PO SCH (08:22)
[2017-09-27] MEDS: buPROPion 150 MG Tab.ER PO SCH (08:22)
[2017-09-27] MEDS: Vitamin B Complex Tab PO SCH (08:22)
[2017-09-27] MEDS: Potassium Chloride 20 MEQ Tab.ER PO SCH (08:28)
[2017-09-27] MEDS ORDERED: FERROUS FUMARATE PO SCH (09:00)
[2017-09-27] MEDS ORDERED: Potassium Chloride 20 MEQ, Lidocaine 1% 2 ML in Sodium Chloride 0.9% 100 ML IV ONE (09:00)
[2017-09-27] MEDS ORDERED: ASCORBIC ACID PO SCH (09:00)
--- NOTE | 2017-09-27 09:12 | CR ---
CHEST: Portable CLINICAL HISTORY:Persistent cough COMPARISON:To November 25, 2012 FINDINGS: There is less than optimal inspiration. Heart size pulmonary vascularity and hilar structu res are normal. There is minimal patchy density in the left lung base.. IMPRESSION: Limited portable chest with poor inspiration Patchy left lower lobe density may represent some patchy atelectasis or infiltrate. Upright two-view chest recommended when patient's condition allows
[2017-09-27] MEDS: ALPRAZolam 0.5 MG Tab PO SCH ×3 (09:13→20:48)
[2017-09-27] MEDS: Acetaminophen 325 MG Tab PO PRN ×2 (09:13→17:33)
[2017-09-27] MEDS: Amphetamine/Dextroamphetamine Salts 10 MG Tab PO SCH ×2 (09:13→14:40)
[2017-09-27] MEDS: fentaNYL 100 MCG/HR Transdermal Patch TRDERM SCH (09:14)
[2017-09-27] MEDS: fentaNYL 50 MCG/HR Transdermal Patch TRDERM SCH (09:14)
[2017-09-27] MEDS: Triamcinolone Acetonide 0.1% Crm 15 GM Tube TOP SCH (09:16)
[2017-09-27] MEDS: Polyethylene Glycol 3350 Powder 17 GM Packet PO SCH (09:17)
[2017-09-27] MEDS: FENTANYL PATCH CHECK TOP SCH ×2 (09:18→21:00)
--- NOTE | 2017-09-27 09:19 | CR ---
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 This appearance is similar to a CT from 2017. The right hip appears intact. 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
--- NOTE | 2017-09-27 09:35 | CR ---
CHEST: 2 view CLINICAL HISTORY:Persistent cough COMPARISON:2013 FINDINGS: There is less than optimal inspiration. This exaggerates basilar lung markings. No infiltr ate effusion or pneumothorax is seen. IMPRESSION: Limited 2 view chest with poor inspiration No acute cardiopulmonary process
[2017-09-27] MEDS: Azithromycin 250 MG Tab PO SCH (10:39)
[2017-09-27] MEDS: Albuterol/Ipratropium 3.0-0.5 MG/3 ML Neb Soln NEB SCH ×3 (11:17→21:55)
--- NOTE | 2017-09-27 12:30 | PCM.PN ---
- General Info Date of Service: 09/27/17 Functional Status: Reports: Pain Controlled, Tolerating Diet - Review of Systems General: Reports: Fever Pulmonary: Reports: Shortness of Breath, Cough Systems Review Comment:: No acute events overnight. She did have a fever last night as well as this morning. Still has a significant cough. Still requiring a fair amount of supplemental oxygen. Still short of breath but feels a little better today. No abdominal pain or nausea. - Patient Data Vitals - Most Recent: Last Vital Signs Temp 37.4 C 09/27/17 11:11 Pulse 91 09/27/17 11:17 Resp 16 09/27/17 11:11 BP 124/112 H 09/27/17 11:11 Pulse Ox 91 L 09/27/17 11:11 Weight - Most Recent: 69.037 kg I&O - Last 24 Hours: Intake & Output 09/26/17 09/27/17 09/27/17 22:59 06:59 14:59 Intake Total 50 450 162 Balance 50 450 162 Lab Results Last 24 Hours: Laboratory Results - last 24 hr 09/27/17 09/27/17 Range/Units 06:02 06:02 WBC 5.0 (4.5-11.0) K/uL RBC 4.09 (3.30-5.50) M/uL Hgb 12.0 (12.0-15.0) g/dL Hct 37.5 (36.0-48.0) % MCV 92 (80-98) fL MCH 29 (27-31) pg MCHC 32 (32-36) % Plt Count 255 (150-400) K/uL Neut % (Auto) 79 H (36-66) % Lymph % (Auto) 15 L (24-44) % Jessamine % (Auto) 3 (2-6) % Eos % (Auto) 2 (2-4) % Baso % (Auto) 0 (0-1) % Sodium 139 L (140-148) mmol/L Potassium 2.8 L* (3.6-5.2) mmol/L Chloride 99 L (100-108) mmol/L Carbon Dioxide 31 (21-32) mmol/L Anion Gap 11.8 (5.0-14.0) mmol/L BUN 14 (7-18) mg/dL Creatinine 0.9 (0.6-1.0) mg/dL Est Cr Clr Drug Dosing 71.78 mL/min Estimated GFR (MDRD) > 60 (>60) Glucose 108 H (74-106) mg/dL Calcium 8.4 L (8.5-10.1) mg/dL Total Bilirubin 0.4 (0.2-1.0) mg/dL AST 28 (15-37) U/L ALT 22 (12-78) U/L Alkaline Phosphatase 155 H (46-116) U/L Total Protein 6.7 (6.4-8.2) g/dL Albumin 3.4 (3.4-5.0) g/dL Globulin 3.3 (2.3-3.5) g/dL Albumin/Globulin Ratio 1.0 L (1.2-2.2) Raad Results Last 24 Hours: Microbiology 09/26/17 07:58 Urine Culture - Preliminary Urine, Bladder Med Orders - Current: Current Medications Acetaminophen (Tylenol) 650 mg PO Q4H PRN PRN Reason: Pain/Fever Last Admin: 09/27/17 09:13 Dose: 650 mg Albuterol (Proventil Neb Soln) 2.5 mg NEB Q4H PRN PRN Reason: Dyspnea Last Admin: 09/27/17 03:03 Dose: 2.5 mg Albuterol/Ipratropium (Duoneb 3.0-0.5 Mg/3 Ml) 3 ml NEB QIDRT [facility] Last Admin: 09/27/17 11:17 Dose: 3 ml Alprazolam (Xanax) 2 mg PO TID [facility] Last Admin: 09/27/17 09:13 Dose: 2 mg Amphetamine/Dextroamphetamine (Adderall) 20 mg PO BID@0800,1400 [facility] Last Admin: 09/27/17 09:13 Dose: 20 mg Aspirin (Ecotrin) 325 mg PO DAILY [facility] Last Admin: 09/27/17 08:22 Dose: 325 mg Azithromycin (Zithromax) 500 mg PO DAILY [facility] Last Admin: 09/27/17 10:39 Dose: 500 mg Benzocaine/Menthol (Cepacol Sore Throat) 1 lozenge MUCMEM Q2H PRN PRN Reason: Sore Throat Last Admin: 09/27/17 04:38 Dose: 1 gill Benzonatate (Tessalon Perles) 100 mg PO TID PRN PRN Reason: Cough Last Admin: 09/27/17 03:02 Dose: 100 mg Bupropion HCl (Wellbutrin Xl) 300 mg PO DAILY [facility] Last Admin: 09/27/17 08:22 Dose: 300 mg Cholecalciferol (Vitamin D3) 2,000 units PO DAILY [facility] Last Admin: 09/27/17 08:21 Dose: 2,000 units Clonazepam (Klonopin) 2 mg PO BEDTIME [facility] Last Admin: 09/26/17 23:29 Dose: 2 mg Cyanocobalamin (Vitamin B12) 1,000 mcg IM Sa@0900 [facility] Cyclobenzaprine HCl (Flexeril) 10 mg PO Q8H PRN PRN Reason: Muscle Spasm Enoxaparin Sodium (Lovenox) 40 mg SUBCUT Q24H [facility] Last Admin: 09/26/17 17:40 Dose: 40 mg Fentanyl (Duragesic) 50 mcg TRDERM Q48H [facility] Last Admin: 09/27/17 09:14 Dose: 50 mcg Fentanyl (Duragesic) 100 mcg TRDERM Q48H [facility] Last Admin: 09/27/17 09:14 Dose: 100 mcg Fluoxetine HCl (Prozac) 80 mg PO DAILY [facility] Last Admin: 09/27/17 08:21 Dose: 80 mg Fluticasone Propionate (Flonase) 0 gm NASBOTH ASDIRECTED PRN PRN Reason: Allergies Folic Acid (Folic Acid) 1 mg PO DAILY [facility] Last Admin: 09/27/17 08:22 Dose: 1 mg Furosemide (Lasix) 80 mg PO BIDDIURETIC [facility] Last Admin: 09/27/17 08:21 Dose: 80 mg Ceftriaxone Sodium 2 gm/ (Sodium Chloride) 50 mls @ 100 mls/hr IV Q24H [facility] Iron/Vitamin C (Vitron-C) 1 tab PO DAILY [facility] Last Admin: 09/27/17 08:21 Dose: 1 tab Lamotrigine (Lamotrigine) 200 mg PO DAILY [facility] Last Admin: 09/27/17 08:22 Dose: 200 mg Lorazepam (Ativan) 1 mg IV Q2H PRN PRN Reason: Cough Last Admin: 09/27/17 04:45 Dose: 1 mg Magnesium Oxide (Magnesium Oxide) 400 mg PO DAILY [facility] Last Admin: 09/27/17 08:22 Dose: 400 mg Meclizine HCl (Antivert) 25 mg PO TID PRN PRN Reason: Dizziness Melatonin (Melatonin) 21 mg PO BEDTIME [facility] Last Admin: 09/26/17 23:28 Dose: 21 mg Mirtazapine (Remeron) 15 mg PO DAILY@1200 [facility] Mirtazapine (Remeron) 30 mg PO BEDTIME [facility] Last Admin: 09/26/17 23:29 Dose: 30 mg Non-Formulary Medication (Linaclotide [Linzess]) 145 mcg PO DAILY [facility] Non-Formulary Medication (Papaya [Papaya Enzyme]) 1 tab PO DAILY [facility] Non-Formulary Medication (Reti-A 0.1%) 1 dose TOP BEDTIME [facility] Fentanyl Patch Check 0 each TOP BID [facility] Last Admin: 09/27/17 09:18 Dose: Not Given Oxycodone HCl (Oxycodone) 20 mg PO Q6H PRN PRN Reason: Pain Last Admin: 09/27/17 05:50 Dose: 20 mg Pantoprazole Sodium (Protonix) 40 mg PO ACBREAKFAST [facility] Last Admin: 09/27/17 08:21 Dose: 40 mg Polyethylene Glycol (Miralax) 17 gm PO DAILY [facility] Last Admin: 09/27/17 09:17 Dose: Not Given Potassium Chloride (Klor-Con M20) 40 meq PO DAILY@0800 [facility] Last Admin: 09/27/17 08:28 Dose: 40 meq Senna (Senna) 8.6 mg PO DAILY [facility] Last Admin: 09/27/17 08:21 Dose: 8.6 mg Sodium Chloride (Saline Flush) 10 ml FLUSH ASDIRECTED PRN PRN Reason: Keep Vein Open Spironolactone (Aldactone) 100 mg PO DAILY [facility] Last Admin: 09/27/17 08:22 Dose: 100 mg Sucralfate (Carafate) 0.5 gm PO Q8HR [facility] Last Admin: 09/27/17 05:06 Dose: Not Given Thiamine HCl (Vitamin B-1) 100 mg PO BEDTIME [facility] Last Admin: 09/26/17 23:29 Dose: 100 mg Triamcinolone Acetonide (Triamcinolone Acetonide 0.1% Crm) 0 gm TOP DAILY [facility] Last Admin: 09/27/17 09:16 Dose: Not Given Vitamin B Complex (Vitamin B Complex) 1 each PO DAILY [facility] Last Admin: 09/27/17 08:22 Dose: 1 each Zolpidem Tartrate (Ambien) 20 mg PO BEDTIME PRN PRN Reason: Insomnia Discontinued Medications Albuterol (Proventil Neb Soln) 2.5 mg NEB ONETIME ONE Stop: 09/26/17 07:14 Last Admin: 09/26/17 07:29 Dose: 2.5 mg Albuterol (Proventil Neb Soln) 2.5 mg NEB ONETIME ONE Stop: 09/26/17 10:15 Last Admin: 09/26/17 10:47 Dose: 2.5 mg Albuterol (Ventolin Hfa) 0 gm INH Q4H PRN PRN Reason: sob Albuterol/Ipratropium (Duoneb 3.0-0.5 Mg/3 Ml) 3 ml NEB ONETIME ONE Stop: 09/26/17 06:40 Last Admin: 09/26/17 06:47 Dose: 3 ml Albuterol/Ipratropium (Duoneb 3.0-0.5 Mg/3 Ml) 3 ml NEB QID PRN PRN Reason: Shortness Of Breath/wheezing Last Admin: 09/27/17 05:01 Dose: 3 ml Bacitracin (Bacitracin Oint 1 Gm) 1 dose TOP ONETIME ONE Stop: 09/26/17 18:52 Last Admin: 09/26/17 19:28 Dose: 1 dose Benzonatate (Tessalon Perles) 200 mg PO ONETIME ONE Stop: 09/26/17 08:40 Last Admin: 09/26/17 09:37 Dose: 200 mg Sodium Chloride (Normal Saline) 1,000 mls @ 250 mls/hr IV ASDIRECTED [facility] Last Admin: 09/26/17 10:47 Dose: 250 mls/hr Clindamycin Phosphate 600 mg/ (Sodium Chloride) 54 mls @ 100 mls/hr IV ONETIME ONE Stop: 09/26/17 11:17 Last Admin: 09/26/17 10:47 Dose: 100 mls/hr Clindamycin Phosphate 600 mg/ (Sodium Chloride) 54 mls @ 100 mls/hr IV Q8H [facility] Last Admin: 09/26/17 16:35 Dose: Not Given Piperacillin/Tazobactam/ (Dextrose 3.375 gm/ Premix) 50 mls @ 100 mls/hr IV Q6H [facility] Last Admin: 09/27/17 09:14 Dose: 100 mls/hr Potassium Chloride 20 meq/Lidocaine HCl 2 ml/ Sodium Chloride 112 mls @ 56 mls/ hr IV ONETIME ONE Stop: 09/27/17 10:59 Last Admin: 09/27/17 10:40 Dose: 56 mls/hr Lorazepam (Ativan) 1 mg IVPUSH ONETIME ONE Stop: 09/26/17 06:36 Last Admin: 09/26/17 06:42 Dose: 1 mg Lorazepam (Ativan) 0.5 mg IVPUSH ONETIME ONE Stop: 09/26/17 07:33 Last Admin: 09/26/17 08:05 Dose: 0.5 mg Methylprednisolone Sodium Succinate (Solu-Medrol) 125 mg IVPUSH ONETIME ONE Stop: 09/26/17 07:13 Last Admin: 09/26/17 07:22 Dose: 125 mg Potassium Chloride (Klor-Con M20) 20 meq PO DAILY@0800 [facility] Sodium Chloride (Saline Flush) 10 ml FLUSH ASDIRECTED PRN PRN Reason: Keep Vein Open Last Admin: 09/26/17 06:47 Dose: 10 ml - Exam Quality Assessment: Supplemental Oxygen General: Alert, Oriented, Cooperative, No Acute Distress Neck: Supple Lungs: Normal Respiratory Effort, Rhonchi (mild upper resp with inspiration). No: Wheezing Cardiovascular: Regular Rate, Regular Rhythm GI/Abdominal Exam: Soft, No Distention Extremities: No Pedal Edema Psy/Mental Status: Alert, Normal Affect - Problem List Review Problem List Initiated/Reviewed/Updated: Yes - My Orders Last 24 Hours: My Active Orders 09/27/17 08:34 Acetaminophen [Tylenol] 650 mg PO Q4H PRN 09/27/17 09:00 Azithromycin [Zithromax] 500 mg PO DAILY 09/27/17 11:00 Albuterol/Ipratropium [DuoNeb 3.0-0.5 MG/3 ML] 3 ml NEB QIDRT 09/27/17 12:28 Convert IV to Saline Lock [OM.PC] Routine 09/27/17 12:29 Admission Status [Patient Status] [ADT] Routine 09/27/17 15:00 cefTRIAXone [Rocephin] 2 gm Sodium Chloride 0.9% [Normal Saline] 50 ml IV Q24H 09/27/17 Lunch Mechanical Soft Diet [DIET] - Plan Plan:: ASSESSMENT / PLAN Acute bronchitis - increasing cough and shortness of breath with clear chest x- ray. She has hypoxic respiratory failure. No obvious evidence for aspiration. -Change antibiotics to ceftriaxone and azithromycin -Scheduled and as needed nebulizers -pulse ox as needed -Supplemental oxygen as needed Chronic pain syndrome - history of joint infections and multiple previous orthopedic surgeries. -Continue home medications Chronic mental illness including ADD, bipolar disorder and depression - seems stable at this time. -Continue home medications MAINTENANCE ISSUES -DVT prophylaxis - enoxaparin -GI prophylaxis - PPI - Nutrition: Regular diet ADMISSION STATUS - she will be transitioned to inpatient status with need for IV antibiotics, hypoxic respiratory failure and ongoing fevers. Disposition - Anticipate discharge to home after completion of hospital stay Dann Hunter M.D.
[2017-09-27] MEDS: Mirtazapine 15 MG Tab PO SCH ×2 (13:24→20:50)
[2017-09-27] MEDS: Albuterol/Ipratropium 3.0-0.5 MG/3 ML Neb Soln NEB ONE (14:46)
[2017-09-27] MEDS: cefTRIAXone 2 GM in Sodium Chloride 0.9% 50 ML IV SCH (17:04)
[2017-09-27] MEDS: Enoxaparin 40 MG/0.4 ML Syringe SUBCUT SCH (17:06)
[2017-09-27] MEDS: Non-Formulary Medication 1 Each (Linaclotide [Linzess] 145 MCG) PO SCH (17:10)
[2017-09-27] MEDS: PAPAYA PO SCH (17:10)
[2017-09-27] MEDS: [UNRECOGNIZED DRUG - OTHER] TOP SCH ×2 (17:11→21:00)
[2017-09-27] MEDS ORDERED: Potassium Chloride 20 MEQ Tab.ER PO ONE (18:00)
[2017-09-27] MEDS: ClonazePAM 1 MG Tab PO SCH (20:46)
[2017-09-27] MEDS: Thiamine 100 MG Tab PO SCH (20:50)
[2017-09-27] MEDS: Melatonin 3 MG Tab PO SCH (21:50)
[2017-09-28] MEDS: oxyCODONE 5 MG Tab PO PRN ×3 (03:52→16:17)
[2017-09-28] MEDS: Sucralfate 1 GM Tab PO SCH ×3 (06:37→22:39)
[2017-09-28] MEDS: Amphetamine/Dextroamphetamine Salts 10 MG Tab PO SCH ×2 (07:27→13:22)
[2017-09-28] MEDS: Pantoprazole 40 MG Tab.CR PO SCH (07:28)
[2017-09-28] MEDS: Furosemide 40 MG Tab PO SCH ×2 (07:28→16:09)
[2017-09-28] MEDS: Potassium Chloride 20 MEQ Tab.ER PO SCH (07:28)
[2017-09-28] MEDS: Albuterol/Ipratropium 3.0-0.5 MG/3 ML Neb Soln NEB SCH ×4 (07:33→22:30)
[2017-09-28] MEDS: Sennosides 8.6 MG Tab PO SCH (09:12)
[2017-09-28] MEDS: FLUoxetine 20 MG Cap PO SCH (09:12)
[2017-09-28] MEDS: lamoTRIgine 100 MG Tab PO SCH (09:13)
[2017-09-28] MEDS: Spironolactone 25 MG Tab PO SCH (09:13)
[2017-09-28] MEDS: Aspirin 325 MG Tab.EC PO SCH (09:13)
[2017-09-28] MEDS: Ferrous Fumarate/Vitamin C 200-125 MG Tab PO SCH (09:13)
[2017-09-28] MEDS: Non-Formulary Medication 1 Each (Linaclotide [Linzess] 145 MCG) PO SCH (09:14)
[2017-09-28] MEDS: Folic Acid 1 MG Tab PO SCH (09:14)
[2017-09-28] MEDS: Magnesium Oxide 400 MG Tab PO SCH (09:14)
[2017-09-28] MEDS: Polyethylene Glycol 3350 Powder 17 GM Packet PO SCH (09:14)
[2017-09-28] MEDS: PAPAYA PO SCH (09:15)
[2017-09-28] MEDS: buPROPion 150 MG Tab.ER PO SCH (09:16)
[2017-09-28] MEDS: Triamcinolone Acetonide 0.1% Crm 15 GM Tube TOP SCH (09:16)
[2017-09-28] MEDS: Cholecalciferol (Vitamin D3) 1,000 Unit Tab PO SCH (09:16)
[2017-09-28] MEDS: Vitamin B Complex Tab PO SCH (09:17)
[2017-09-28] MEDS: Azithromycin 250 MG Tab PO SCH (09:17)
[2017-09-28] MEDS: FENTANYL PATCH CHECK TOP SCH ×2 (09:18→22:31)
[2017-09-28] MEDS: ALPRAZolam 0.5 MG Tab PO SCH ×3 (09:59→22:41)
--- NOTE | 2017-09-28 10:53 | PCM.PN ---
- General Info Date of Service: 09/28/17 Functional Status: Reports: Pain Controlled, Tolerating Diet - Review of Systems General: Denies: Fever Pulmonary: Reports: Shortness of Breath, Cough, Sputum Systems Review Comment:: There were no acute events overnight. She continues to require fairly high quantities of supplemental oxygen and is on 3 L via the Oxymizer. She continues to cough up yellow to brown sputum. Shortness of breath seems a little better today. No fevers in the last 24 hours. Cultures remain negative other than the urine culture which did grow out a pansensitive Escherichia coli. No complaints of abdominal pain or nausea. - Patient Data Vitals - Most Recent: Last Vital Signs Temp 36.4 C 09/28/17 07:13 Pulse 86 09/28/17 07:34 Resp 18 09/28/17 07:13 BP 112/53 L 09/28/17 07:13 Pulse Ox 87 L 09/28/17 07:56 Weight - Most Recent: 69.037 kg I&O - Last 24 Hours: Intake & Output 09/27/17 09/28/17 09/28/17 22:59 06:59 14:59 Intake Total 450 Balance 450 Lab Results Last 24 Hours: Laboratory Results - last 24 hr 09/27/17 Range/Units 16:02 Potassium 3.3 L (3.6-5.2) mmol/L Raad Results Last 24 Hours: Microbiology 09/26/17 07:58 Urine Culture - Final Urine, Bladder Escherichia Coli Med Orders - Current: Current Medications Acetaminophen (Tylenol) 650 mg PO Q4H PRN PRN Reason: Pain/Fever Last Admin: 09/27/17 17:33 Dose: 650 mg Albuterol (Proventil Neb Soln) 2.5 mg NEB Q4H PRN PRN Reason: Dyspnea Last Admin: 09/27/17 03:03 Dose: 2.5 mg Albuterol/Ipratropium (Duoneb 3.0-0.5 Mg/3 Ml) 3 ml NEB QIDRT [facility] Last Admin: 09/28/17 07:33 Dose: 3 ml Alprazolam (Xanax) 2 mg PO TID [facility] Last Admin: 09/28/17 09:59 Dose: 2 mg Amphetamine/Dextroamphetamine (Adderall) 20 mg PO BID@0800,1400 [facility] Last Admin: 09/28/17 07:27 Dose: 20 mg Aspirin (Ecotrin) 325 mg PO DAILY [facility] Last Admin: 09/28/17 09:13 Dose: 325 mg Azithromycin (Zithromax) 500 mg PO DAILY [facility] Last Admin: 09/28/17 09:17 Dose: 500 mg Benzocaine/Menthol (Cepacol Sore Throat) 1 lozenge MUCMEM Q2H PRN PRN Reason: Sore Throat Last Admin: 09/27/17 04:38 Dose: 1 gill Benzonatate (Tessalon Perles) 100 mg PO TID PRN PRN Reason: Cough Last Admin: 09/27/17 20:40 Dose: 100 mg Bupropion HCl (Wellbutrin Xl) 300 mg PO DAILY [facility] Last Admin: 09/28/17 09:16 Dose: 300 mg Cholecalciferol (Vitamin D3) 2,000 units PO DAILY [facility] Last Admin: 09/28/17 09:16 Dose: 2,000 units Clonazepam (Klonopin) 2 mg PO BEDTIME [facility] Last Admin: 09/27/17 20:46 Dose: 2 mg Cyanocobalamin (Vitamin B12) 1,000 mcg IM Sa@0900 [facility] Cyclobenzaprine HCl (Flexeril) 10 mg PO Q8H PRN PRN Reason: Muscle Spasm Enoxaparin Sodium (Lovenox) 40 mg SUBCUT Q24H [facility] Last Admin: 09/27/17 17:06 Dose: 40 mg Fentanyl (Duragesic) 50 mcg TRDERM Q48H [facility] Last Admin: 09/27/17 09:14 Dose: 50 mcg Fentanyl (Duragesic) 100 mcg TRDERM Q48H [facility] Last Admin: 09/27/17 09:14 Dose: 100 mcg Fluoxetine HCl (Prozac) 80 mg PO DAILY [facility] Last Admin: 09/28/17 09:12 Dose: 80 mg Fluticasone Propionate (Flonase) 0 gm NASBOTH ASDIRECTED PRN PRN Reason: Allergies Folic Acid (Folic Acid) 1 mg PO DAILY [facility] Last Admin: 09/28/17 09:14 Dose: 1 mg Furosemide (Lasix) 80 mg PO BIDDIURETIC [facility] Last Admin: 09/28/17 07:28 Dose: 80 mg Ceftriaxone Sodium 2 gm/ (Sodium Chloride) 50 mls @ 100 mls/hr IV Q24H [facility] Last Admin: 09/27/17 17:04 Dose: 100 mls/hr Iron/Vitamin C (Vitron-C) 1 tab PO DAILY [facility] Last Admin: 09/28/17 09:13 Dose: 1 tab Lamotrigine (Lamotrigine) 200 mg PO DAILY [facility] Last Admin: 09/28/17 09:13 Dose: 200 mg Lorazepam (Ativan) 1 mg IV Q2H PRN PRN Reason: Cough Last Admin: 09/27/17 04:45 Dose: 1 mg Magnesium Oxide (Magnesium Oxide) 400 mg PO DAILY [facility] Last Admin: 09/28/17 09:14 Dose: 400 mg Meclizine HCl (Antivert) 25 mg PO TID PRN PRN Reason: Dizziness Melatonin (Melatonin) 21 mg PO BEDTIME [facility] Last Admin: 09/27/17 21:50 Dose: 21 mg Mirtazapine (Remeron) 15 mg PO DAILY@1200 [facility] Last Admin: 09/27/17 13:24 Dose: 15 mg Mirtazapine (Remeron) 30 mg PO BEDTIME [facility] Last Admin: 09/27/17 20:50 Dose: 30 mg Non-Formulary Medication (Linaclotide [Linzess]) 145 mcg PO DAILY [facility] Last Admin: 09/28/17 09:14 Dose: Not Given Non-Formulary Medication (Papaya [Papaya Enzyme]) 1 tab PO DAILY [facility] Last Admin: 09/28/17 09:15 Dose: Not Given Non-Formulary Medication (Reti-A 0.1%) 1 dose TOP BEDTIME [facility] Last Admin: 09/27/17 21:00 Dose: Not Given Fentanyl Patch Check 0 each TOP BID [facility] Last Admin: 09/28/17 09:18 Dose: Not Given Oxycodone HCl (Oxycodone) 20 mg PO Q6H PRN PRN Reason: Pain Last Admin: 09/28/17 09:59 Dose: 20 mg Pantoprazole Sodium (Protonix) 40 mg PO ACBREAKFAST [facility] Last Admin: 09/28/17 07:28 Dose: 40 mg Polyethylene Glycol (Miralax) 17 gm PO DAILY [facility] Last Admin: 09/28/17 09:14 Dose: 17 gm Potassium Chloride (Klor-Con M20) 40 meq PO DAILY@0800 [facility] Last Admin: 09/28/17 07:28 Dose: 40 meq Senna (Senna) 8.6 mg PO DAILY [facility] Last Admin: 09/28/17 09:12 Dose: 8.6 mg Sodium Chloride (Saline Flush) 10 ml FLUSH ASDIRECTED PRN PRN Reason: Keep Vein Open Spironolactone (Aldactone) 100 mg PO DAILY [facility] Last Admin: 09/28/17 09:13 Dose: 100 mg Sucralfate (Carafate) 0.5 gm PO Q8HR [facility] Last Admin: 09/28/17 06:37 Dose: 0.5 gm Thiamine HCl (Vitamin B-1) 100 mg PO BEDTIME [facility] Last Admin: 09/27/17 20:50 Dose: 100 mg Triamcinolone Acetonide (Triamcinolone Acetonide 0.1% Crm) 0 gm TOP DAILY [facility] Last Admin: 09/28/17 09:16 Dose: 1 applic Vitamin B Complex (Vitamin B Complex) 1 each PO DAILY [facility] Last Admin: 09/28/17 09:17 Dose: 1 each Zolpidem Tartrate (Ambien) 20 mg PO BEDTIME PRN PRN Reason: Insomnia Discontinued Medications Albuterol (Proventil Neb Soln) 2.5 mg NEB ONETIME ONE Stop: 09/26/17 07:14 Last Admin: 09/26/17 07:29 Dose: 2.5 mg Albuterol (Proventil Neb Soln) 2.5 mg NEB ONETIME ONE Stop: 09/26/17 10:15 Last Admin: 09/26/17 10:47 Dose: 2.5 mg Albuterol (Ventolin Hfa) 0 gm INH Q4H PRN PRN Reason: sob Albuterol/Ipratropium (Duoneb 3.0-0.5 Mg/3 Ml) 3 ml NEB ONETIME ONE Stop: 09/26/17 06:40 Last Admin: 09/27/17 14:46 Dose: 3 ml Albuterol/Ipratropium (Duoneb 3.0-0.5 Mg/3 Ml) 3 ml NEB QID PRN PRN Reason: Shortness Of Breath/wheezing Last Admin: 09/27/17 05:01 Dose: 3 ml Bacitracin (Bacitracin Oint 1 Gm) 1 dose TOP ONETIME ONE Stop: 09/26/17 18:52 Last Admin: 06/03/18 19:28 Dose: 1 dose Benzonatate (Tessalon Perles) 200 mg PO ONETIME ONE Stop: 09/26/17 08:40 Last Admin: 09/26/17 09:37 Dose: 200 mg Sodium Chloride (Normal Saline) 1,000 mls @ 250 mls/hr IV ASDIRECTED [facility] Last Admin: 09/26/17 10:47 Dose: 250 mls/hr Clindamycin Phosphate 600 mg/ (Sodium Chloride) 54 mls @ 100 mls/hr IV ONETIME ONE Stop: 09/26/17 11:17 Last Admin: 09/26/17 10:47 Dose: 100 mls/hr Clindamycin Phosphate 600 mg/ (Sodium Chloride) 54 mls @ 100 mls/hr IV Q8H [facility] Last Admin: 09/26/17 16:35 Dose: Not Given Piperacillin/Tazobactam/ (Dextrose 3.375 gm/ Premix) 50 mls @ 100 mls/hr IV Q6H [facility] Last Admin: 09/27/17 09:14 Dose: 100 mls/hr Potassium Chloride 20 meq/Lidocaine HCl 2 ml/ Sodium Chloride 112 mls @ 56 mls/ hr IV ONETIME ONE Stop: 09/27/17 10:59 Last Admin: 09/27/17 10:40 Dose: 56 mls/hr Lorazepam (Ativan) 1 mg IVPUSH ONETIME ONE Stop: 09/26/17 06:36 Last Admin: 09/26/17 06:42 Dose: 1 mg Lorazepam (Ativan) 0.5 mg IVPUSH ONETIME ONE Stop: 09/26/17 07:33 Last Admin: 09/26/17 08:05 Dose: 0.5 mg Methylprednisolone Sodium Succinate (Solu-Medrol) 125 mg IVPUSH ONETIME ONE Stop: 09/26/17 07:13 Last Admin: 09/26/17 07:22 Dose: 125 mg Potassium Chloride (Klor-Con M20) 20 meq PO DAILY@0800 [facility] Potassium Chloride (Klor-Con M20) 40 meq PO ONETIME ONE Stop: 09/27/17 18:01 Last Admin: 09/27/17 17:07 Dose: 40 meq Sodium Chloride (Saline Flush) 10 ml FLUSH ASDIRECTED PRN PRN Reason: Keep Vein Open Last Admin: 09/26/17 06:47 Dose: 10 ml - Exam Quality Assessment: Supplemental Oxygen General: Alert, Oriented, Cooperative, No Acute Distress Neck: Supple Lungs: Clear to Auscultation, Normal Respiratory Effort. No: Wheezing Cardiovascular: Regular Rate, Regular Rhythm Psy/Mental Status: Alert, Normal Affect - Problem List Review Problem List Initiated/Reviewed/Updated: Yes - My Orders Last 24 Hours: My Active Orders 09/27/17 11:00 Albuterol/Ipratropium [DuoNeb 3.0-0.5 MG/3 ML] 3 ml NEB QIDRT 09/27/17 12:28 Convert IV to Saline Lock [OM.PC] Routine 09/27/17 12:29 Admission Status [Patient Status] [ADT] Routine 09/27/17 15:00 cefTRIAXone [Rocephin] 2 gm Sodium Chloride 0.9% [Normal Saline] 50 ml IV Q24H 09/27/17 Lunch Mechanical Soft Diet [DIET] 09/29/17 05:00 BASIC METABOLIC PANEL,BMP [CHEM] Timed - Plan Plan:: ASSESSMENT / PLAN Acute bronchitis - increasing cough and shortness of breath with clear chest x- ray. She has hypoxic respiratory failure that seems to be slowly improving. No obvious evidence for aspiration. -Continuehromycin -Scheduled and as needed nebulizers -pulse ox as needed -Supplemental oxygen as needed Chronic pain syndrome - history of joint infections and multiple previous orthopedic surgeries. -Continue home medications Chronic mental illness including ADD, bipolar disorder and depression - seems stable at this time. -Continue home medications MAINTENANCE ISSUES -DVT prophylaxis - enoxaparin -GI prophylaxis - PPI - Nutrition: Regular diet Disposition - Anticipate discharge to home after the hospital stay Dann Hunter M.D.
[2017-09-28] MEDS: Benzocaine/Cetylpyridinium/Menthol Lozenge MUCMEM PRN (13:21)
[2017-09-28] MEDS: Mirtazapine 15 MG Tab PO SCH ×2 (13:23→22:35)
[2017-09-28] MEDS: Enoxaparin 40 MG/0.4 ML Syringe SUBCUT SCH (16:09)
[2017-09-28] MEDS: cefTRIAXone 2 GM in Sodium Chloride 0.9% 50 ML IV SCH (16:12)
[2017-09-28] MEDS: ClonazePAM 1 MG Tab PO SCH (22:31)
[2017-09-28] MEDS: Thiamine 100 MG Tab PO SCH (22:35)
[2017-09-28] MEDS: Melatonin 3 MG Tab PO SCH (22:35)
[2017-09-28] MEDS: [UNRECOGNIZED DRUG - OTHER] TOP SCH (22:36)
[2017-09-29] MEDS: oxyCODONE 5 MG Tab PO PRN ×4 (00:06→19:56)
[2017-09-29] MEDS: Sucralfate 1 GM Tab PO SCH ×3 (05:58→21:57)
[2017-09-29] MEDS: Albuterol/Ipratropium 3.0-0.5 MG/3 ML Neb Soln NEB SCH ×4 (07:52→21:57)
[2017-09-29] MEDS: Pantoprazole 40 MG Tab.CR PO SCH (08:40)
[2017-09-29] MEDS: Ferrous Fumarate/Vitamin C 200-125 MG Tab PO SCH (08:41)
[2017-09-29] MEDS: lamoTRIgine 100 MG Tab PO SCH (08:42)
[2017-09-29] MEDS: ALPRAZolam 0.5 MG Tab PO SCH ×3 (08:42→21:58)
[2017-09-29] MEDS: Aspirin 325 MG Tab.EC PO SCH (08:42)
[2017-09-29] MEDS: Folic Acid 1 MG Tab PO SCH (08:43)
[2017-09-29] MEDS: Azithromycin 250 MG Tab PO SCH (08:43)
[2017-09-29] MEDS: buPROPion 150 MG Tab.ER PO SCH (08:44)
[2017-09-29] MEDS: Sennosides 8.6 MG Tab PO SCH (08:44)
[2017-09-29] MEDS: Magnesium Oxide 400 MG Tab PO SCH (08:44)
[2017-09-29] MEDS: Furosemide 40 MG Tab PO SCH ×2 (08:45→13:48)
[2017-09-29] MEDS: Spironolactone 25 MG Tab PO SCH (08:45)
[2017-09-29] MEDS: Vitamin B Complex Tab PO SCH (08:46)
[2017-09-29] MEDS: FLUoxetine 20 MG Cap PO SCH (08:46)
[2017-09-29] MEDS: PAPAYA PO SCH (08:47)
[2017-09-29] MEDS: Cholecalciferol (Vitamin D3) 1,000 Unit Tab PO SCH (08:47)
[2017-09-29] MEDS: Triamcinolone Acetonide 0.1% Crm 15 GM Tube TOP SCH (08:47)
[2017-09-29] MEDS: fentaNYL 50 MCG/HR Transdermal Patch TRDERM SCH (08:49)
[2017-09-29] MEDS: fentaNYL 100 MCG/HR Transdermal Patch TRDERM SCH (08:49)
[2017-09-29] MEDS: Polyethylene Glycol 3350 Powder 17 GM Packet PO SCH (08:51)
[2017-09-29] MEDS: Non-Formulary Medication 1 Each (Linaclotide [Linzess] 145 MCG) PO SCH (08:51)
[2017-09-29] MEDS: FENTANYL PATCH CHECK TOP SCH ×2 (08:52→21:59)
[2017-09-29] MEDS ORDERED: Potassium Chloride 20 MEQ Tab.ER PO ONE ×2 (09:00→21:00)
[2017-09-29] MEDS: Amphetamine/Dextroamphetamine Salts 10 MG Tab PO SCH ×2 (09:00→13:52)
[2017-09-29] MEDS: Potassium Chloride 20 MEQ Tab.ER PO SCH (10:27)
--- NOTE | 2017-09-29 10:52 | PCM.PN ---
- General Info Date of Service: 09/29/17 Functional Status: Reports: Pain Controlled, Tolerating Diet - Review of Systems Pulmonary: Reports: Shortness of Breath, Cough, Sputum Systems Review Comment:: No acute events overnight. Still coughing a fair amount and still short of breath though this is slowly improving. Mild nausea and diffuse aches this morning. No fevers overnight. Still requiring 3 L of supplemental oxygen. - Patient Data Vitals - Most Recent: Last Vital Signs Temp 35.8 C 09/29/17 07:42 Pulse 69 09/29/17 07:42 Resp 18 09/29/17 07:42 BP 95/41 L 09/29/17 07:42 Pulse Ox 91 L 09/29/17 07:42 Weight - Most Recent: 69.037 kg I&O - Last 24 Hours: Intake & Output 09/28/17 09/29/17 09/29/17 22:59 06:59 14:59 Intake Total 530 Output Total 200 Balance 330 Lab Results Last 24 Hours: Laboratory Results - last 24 hr 09/29/17 Range/Units 05:06 Sodium 140 (140-148) mmol/L Potassium 3.1 L (3.6-5.2) mmol/L Chloride 99 L (100-108) mmol/L Carbon Dioxide 36 H (21-32) mmol/L Anion Gap 8.1 (5.0-14.0) mmol/L BUN 9 (7-18) mg/dL Creatinine 0.7 (0.6-1.0) mg/dL Est Cr Clr Drug Dosing 92.14 mL/min Estimated GFR (MDRD) > 60 (>60) Glucose 101 (74-106) mg/dL Calcium 8.5 (8.5-10.1) mg/dL Raad Results Last 24 Hours: Microbiology 09/26/17 07:58 Urine Culture - Final Urine, Bladder Escherichia Coli Med Orders - Current: Current Medications Acetaminophen (Tylenol) 650 mg PO Q4H PRN PRN Reason: Pain/Fever Last Admin: 09/27/17 17:33 Dose: 650 mg Albuterol (Proventil Neb Soln) 2.5 mg NEB Q4H PRN PRN Reason: Dyspnea Last Admin: 09/27/17 03:03 Dose: 2.5 mg Albuterol/Ipratropium (Duoneb 3.0-0.5 Mg/3 Ml) 3 ml NEB QIDRT [facility] Last Admin: 09/29/17 07:52 Dose: 3 ml Alprazolam (Xanax) 2 mg PO TID [facility] Last Admin: 09/29/17 08:42 Dose: 2 mg Amphetamine/Dextroamphetamine (Adderall) 20 mg PO BID@0800,1400 [facility] Last Admin: 09/29/17 09:00 Dose: 20 mg Aspirin (Ecotrin) 325 mg PO DAILY [facility] Last Admin: 09/29/17 08:42 Dose: 325 mg Azithromycin (Zithromax) 500 mg PO DAILY [facility] Last Admin: 09/29/17 08:43 Dose: 500 mg Benzocaine/Menthol (Cepacol Sore Throat) 1 lozenge MUCMEM Q2H PRN PRN Reason: Sore Throat Last Admin: 09/28/17 13:21 Dose: 1 gill Benzonatate (Tessalon Perles) 100 mg PO TID PRN PRN Reason: Cough Last Admin: 09/27/17 20:40 Dose: 100 mg Bupropion HCl (Wellbutrin Xl) 300 mg PO DAILY [facility] Last Admin: 09/29/17 08:44 Dose: 300 mg Cholecalciferol (Vitamin D3) 2,000 units PO DAILY [facility] Last Admin: 09/29/17 08:47 Dose: 2,000 units Clonazepam (Klonopin) 2 mg PO BEDTIME [facility] Last Admin: 09/28/17 22:31 Dose: 2 mg Cyanocobalamin (Vitamin B12) 1,000 mcg IM Sa@0900 [facility] Cyclobenzaprine HCl (Flexeril) 10 mg PO Q8H PRN PRN Reason: Muscle Spasm Enoxaparin Sodium (Lovenox) 40 mg SUBCUT Q24H [facility] Last Admin: 09/28/17 16:09 Dose: 40 mg Fentanyl (Duragesic) 50 mcg TRDERM Q48H [facility] Last Admin: 09/29/17 08:49 Dose: 50 mcg Fentanyl (Duragesic) 100 mcg TRDERM Q48H [facility] Last Admin: 09/29/17 08:49 Dose: 100 mcg Fluoxetine HCl (Prozac) 80 mg PO DAILY [facility] Last Admin: 09/29/17 08:46 Dose: 80 mg Fluticasone Propionate (Flonase) 0 gm NASBOTH ASDIRECTED PRN PRN Reason: Allergies Folic Acid (Folic Acid) 1 mg PO DAILY [facility] Last Admin: 09/29/17 08:43 Dose: 1 mg Furosemide (Lasix) 80 mg PO BIDDIURETIC [facility] Last Admin: 09/29/17 08:45 Dose: 80 mg Ceftriaxone Sodium 2 gm/ (Sodium Chloride) 50 mls @ 100 mls/hr IV Q24H [facility] Last Admin: 09/28/17 16:12 Dose: 100 mls/hr Iron/Vitamin C (Vitron-C) 1 tab PO DAILY [facility] Last Admin: 09/29/17 08:41 Dose: 1 tab Lamotrigine (Lamotrigine) 200 mg PO DAILY [facility] Last Admin: 09/29/17 08:42 Dose: 200 mg Lorazepam (Ativan) 1 mg IV Q2H PRN PRN Reason: Cough Last Admin: 09/27/17 04:45 Dose: 1 mg Magnesium Oxide (Magnesium Oxide) 400 mg PO DAILY [facility] Last Admin: 09/29/17 08:44 Dose: 400 mg Meclizine HCl (Antivert) 25 mg PO TID PRN PRN Reason: Dizziness Melatonin (Melatonin) 21 mg PO BEDTIME [facility] Last Admin: 09/28/17 22:35 Dose: 21 mg Mirtazapine (Remeron) 15 mg PO DAILY@1200 [facility] Last Admin: 09/28/17 13:23 Dose: 15 mg Mirtazapine (Remeron) 30 mg PO BEDTIME [facility] Last Admin: 09/28/17 22:35 Dose: 30 mg Non-Formulary Medication (Linaclotide [Linzess]) 145 mcg PO DAILY [facility] Last Admin: 09/29/17 08:51 Dose: Not Given Non-Formulary Medication (Papaya [Papaya Enzyme]) 1 tab PO DAILY [facility] Last Admin: 09/29/17 08:47 Dose: Not Given Non-Formulary Medication (Reti-A 0.1%) 1 dose TOP BEDTIME [facility] Last Admin: 09/28/17 22:36 Dose: Not Given Fentanyl Patch Check 0 each TOP BID [facility] Last Admin: 09/29/17 08:52 Dose: Not Given Oxycodone HCl (Oxycodone) 20 mg PO Q6H PRN PRN Reason: Pain Last Admin: 09/29/17 06:01 Dose: 20 mg Pantoprazole Sodium (Protonix) 40 mg PO ACBREAKFAST [facility] Last Admin: 09/29/17 08:40 Dose: 40 mg Polyethylene Glycol (Miralax) 17 gm PO DAILY [facility] Last Admin: 09/29/17 08:51 Dose: Not Given Potassium Chloride (Klor-Con M20) 40 meq PO DAILY@0800 [facility] Last Admin: 09/29/17 10:27 Dose: 40 meq Senna (Senna) 8.6 mg PO DAILY [facility] Last Admin: 09/29/17 08:44 Dose: 8.6 mg Sodium Chloride (Saline Flush) 10 ml FLUSH ASDIRECTED PRN PRN Reason: Keep Vein Open Spironolactone (Aldactone) 100 mg PO DAILY [facility] Last Admin: 09/29/17 08:45 Dose: 100 mg Sucralfate (Carafate) 0.5 gm PO Q8HR [facility] Last Admin: 09/29/17 05:58 Dose: 0.5 gm Thiamine HCl (Vitamin B-1) 100 mg PO BEDTIME [facility] Last Admin: 09/28/17 22:35 Dose: 100 mg Triamcinolone Acetonide (Triamcinolone Acetonide 0.1% Crm) 0 gm TOP DAILY [facility] Last Admin: 09/29/17 08:47 Dose: 1 applic Vitamin B Complex (Vitamin B Complex) 1 each PO DAILY [facility] Last Admin: 09/29/17 08:46 Dose: 1 each Zolpidem Tartrate (Ambien) 20 mg PO BEDTIME PRN PRN Reason: Insomnia Discontinued Medications Albuterol (Proventil Neb Soln) 2.5 mg NEB ONETIME ONE Stop: 09/26/17 07:14 Last Admin: 09/26/17 07:29 Dose: 2.5 mg Albuterol (Proventil Neb Soln) 2.5 mg NEB ONETIME ONE Stop: 09/26/17 10:15 Last Admin: 09/26/17 10:47 Dose: 2.5 mg Albuterol (Ventolin Hfa) 0 gm INH Q4H PRN PRN Reason: sob Albuterol/Ipratropium (Duoneb 3.0-0.5 Mg/3 Ml) 3 ml NEB ONETIME ONE Stop: 09/26/17 06:40 Last Admin: 09/27/17 14:46 Dose: 3 ml Albuterol/Ipratropium (Duoneb 3.0-0.5 Mg/3 Ml) 3 ml NEB QID PRN PRN Reason: Shortness Of Breath/wheezing Last Admin: 09/27/17 05:01 Dose: 3 ml Bacitracin (Bacitracin Oint 1 Gm) 1 dose TOP ONETIME ONE Stop: 09/26/17 18:52 Last Admin: 09/26/17 19:28 Dose: 1 dose Benzonatate (Tessalon Perles) 200 mg PO ONETIME ONE Stop: 09/26/17 08:40 Last Admin: 09/26/17 09:37 Dose: 200 mg Sodium Chloride (Normal Saline) 1,000 mls @ 250 mls/hr IV ASDIRECTED [facility] Last Admin: 09/26/17 10:47 Dose: 250 mls/hr Clindamycin Phosphate 600 mg/ (Sodium Chloride) 54 mls @ 100 mls/hr IV ONETIME ONE Stop: 09/26/17 11:17 Last Admin: 09/26/17 10:47 Dose: 100 mls/hr Clindamycin Phosphate 600 mg/ (Sodium Chloride) 54 mls @ 100 mls/hr IV Q8H [facility] Last Admin: 09/26/17 16:35 Dose: Not Given Piperacillin/Tazobactam/ (Dextrose 3.375 gm/ Premix) 50 mls @ 100 mls/hr IV Q6H [facility] Last Admin: 09/27/17 09:14 Dose: 100 mls/hr Potassium Chloride 20 meq/Lidocaine HCl 2 ml/ Sodium Chloride 112 mls @ 56 mls/ hr IV ONETIME ONE Stop: 09/27/17 10:59 Last Admin: 09/27/17 10:40 Dose: 56 mls/hr Lorazepam (Ativan) 1 mg IVPUSH ONETIME ONE Stop: 09/26/17 06:36 Last Admin: 09/26/17 06:42 Dose: 1 mg Lorazepam (Ativan) 0.5 mg IVPUSH ONETIME ONE Stop: 09/26/17 07:33 Last Admin: 09/26/17 08:05 Dose: 0.5 mg Methylprednisolone Sodium Succinate (Solu-Medrol) 125 mg IVPUSH ONETIME ONE Stop: 09/26/17 07:13 Last Admin: 09/26/17 07:22 Dose: 125 mg Potassium Chloride (Klor-Con M20) 20 meq PO DAILY@0800 [facility] Potassium Chloride (Klor-Con M20) 40 meq PO ONETIME ONE Stop: 09/27/17 18:01 Last Admin: 09/27/17 17:07 Dose: 40 meq Potassium Chloride (Klor-Con M20) 40 meq PO ONETIME ONE Stop: 09/29/17 09:01 Last Admin: 09/29/17 08:41 Dose: 40 meq Sodium Chloride (Saline Flush) 10 ml FLUSH ASDIRECTED PRN PRN Reason: Keep Vein Open Last Admin: 09/26/17 06:47 Dose: 10 ml - Exam Quality Assessment: Supplemental Oxygen General: Alert, Oriented, Cooperative, No Acute Distress Neck: Supple Lungs: Normal Respiratory Effort, Crackles (rare left lung base) Cardiovascular: Regular Rate, Regular Rhythm GI/Abdominal Exam: Soft, No Distention Extremities: No Pedal Edema Psy/Mental Status: Alert, Normal Affect - Problem List Review Problem List Initiated/Reviewed/Updated: Yes - My Orders Last 24 Hours: My Active Orders 09/28/17 Lunch Regular Diet [DIET] 09/29/17 10:51 Communication Order [RC] ROUTINE 09/29/17 21:00 Potassium Chloride [Klor-Con M20] 40 meq PO ONETIME ONE 09/30/17 05:00 BASIC METABOLIC PANEL,BMP [CHEM] Timed CBC W/O DIFF,HEMOGRAM [HEME] Timed (1) - Plan Plan:: ASSESSMENT / PLAN Acute bronchitis - increasing cough and shortness of breath with clear chest x- ray. Slowly improving but still significant hypoxia requiring 3 L of supplemental oxygen. Still fairly symptomatic with cough. -Continue ceftriaxone and azithromycin -Scheduled and as needed nebulizers -pulse ox as needed -Supplemental oxygen as needed Chronic pain syndrome - history of joint infections and multiple previous orthopedic surgeries. -Continue home medications Chronic mental illness including ADD, bipolar disorder and depression - seems stable at this time. -Continue home medications MAINTENANCE ISSUES -DVT prophylaxis - enoxaparin -GI prophylaxis - PPI - Nutrition: Regular diet Disposition - Anticipate discharge to home after the hospital stay, possibly tomorrow if stable overnight Dann Hunter M.D.
[2017-09-29] MEDS: Mirtazapine 15 MG Tab PO SCH ×2 (13:45→21:57)
[2017-09-29] MEDS: cefTRIAXone 2 GM in Sodium Chloride 0.9% 50 ML IV SCH (15:43)
[2017-09-29] MEDS: Enoxaparin 40 MG/0.4 ML Syringe SUBCUT SCH (15:44)
--- NOTE | 2017-09-29 21:54 | PCM.SN ---
- Free Text/Narrative Note: time: 21:52 consult from [facility]: complaints of fatigue o: blood pressure 85/63 pulse 63 a: hypotension p: give IV LR 500ml now, then IV LR at 125ml/hr continue present plan of care.
[2017-09-29] MEDS: Melatonin 3 MG Tab PO SCH (21:57)
[2017-09-29] MEDS: ClonazePAM 1 MG Tab PO SCH (21:57)
[2017-09-29] MEDS: [UNRECOGNIZED DRUG - OTHER] TOP SCH (21:59)
[2017-09-29] MEDS ORDERED: Lactated Ringers 500 ML IV SCH (22:00)
[2017-09-29] MEDS: Thiamine 100 MG Tab PO SCH (22:02)
[2017-09-29] MEDS: Lactated Ringers 1,000 ML IV SCH (23:04)
[2017-09-30] MEDS: oxyCODONE 5 MG Tab PO PRN (03:07)
[2017-09-30] MEDS: Lactated Ringers 1,000 ML IV SCH (03:11)
[2017-09-30] MEDS: Sucralfate 1 GM Tab PO SCH (05:09)
[2017-09-30] MEDS: Amphetamine/Dextroamphetamine Salts 10 MG Tab PO SCH (07:34)
[2017-09-30] MEDS: Pantoprazole 40 MG Tab.CR PO SCH (07:35)
[2017-09-30] MEDS: Potassium Chloride 20 MEQ Tab.ER PO SCH (07:36)
[2017-09-30] MEDS: Furosemide 40 MG Tab PO SCH (07:36)
[2017-09-30] MEDS: Albuterol/Ipratropium 3.0-0.5 MG/3 ML Neb Soln NEB SCH ×2 (07:47→11:33)
[2017-09-30] MEDS: Aspirin 325 MG Tab.EC PO SCH (08:16)
[2017-09-30] MEDS: Folic Acid 1 MG Tab PO SCH (08:17)
[2017-09-30] MEDS: Sennosides 8.6 MG Tab PO SCH (08:18)
[2017-09-30] MEDS: Cholecalciferol (Vitamin D3) 1,000 Unit Tab PO SCH (08:18)
[2017-09-30] MEDS: Vitamin B Complex Tab PO SCH (08:19)
[2017-09-30] MEDS: Magnesium Oxide 400 MG Tab PO SCH (08:19)
[2017-09-30] MEDS: Ferrous Fumarate/Vitamin C 200-125 MG Tab PO SCH (08:20)
[2017-09-30] MEDS: Azithromycin 250 MG Tab PO SCH (08:21)
[2017-09-30] MEDS: Polyethylene Glycol 3350 Powder 17 GM Packet PO SCH (08:22)
[2017-09-30] MEDS: FENTANYL PATCH CHECK TOP SCH (08:22)
[2017-09-30] MEDS: lamoTRIgine 100 MG Tab PO SCH (08:23)
[2017-09-30] MEDS: Non-Formulary Medication 1 Each (Linaclotide [Linzess] 145 MCG) PO SCH (08:24)
[2017-09-30] MEDS: buPROPion 150 MG Tab.ER PO SCH (08:24)
[2017-09-30] MEDS: FLUoxetine 20 MG Cap PO SCH (08:24)
[2017-09-30] MEDS: PAPAYA PO SCH (08:24)
[2017-09-30] MEDS: ALPRAZolam 0.5 MG Tab PO SCH (08:25)
[2017-09-30] MEDS: Triamcinolone Acetonide 0.1% Crm 15 GM Tube TOP SCH (08:27)
[2017-09-30] MEDS ORDERED: Sodium Chloride 0.9% 500 ML IV SCH (09:15)
[2017-09-30 10:32] VITALS: BP 147/97
--- NOTE | 2017-09-30 12:03 | PCM.DCSUM1 ---
Discharge Summary - Hospital Course Brief History: 42 -year-old female with history of chronic pain syndrome, bipolar disorder and nocturnal oxygen dependence who presented with acute shortness of breath, fever and cough. She was admitted for management of hypoxic respiratory failure and concern for aspiration pneumonia. - Discharge Data Discharge Date: 09/30/17 Discharge Disposition: Home, Self-Care 01 Condition: Fair - Discharge Diagnosis/Problem(s) (1) Acute bronchitis SNOMED Code(s): 22979401 ICD Code: J20.9 - ACUTE BRONCHITIS, UNSPECIFIED Status: Acute Qualifiers: Bronchitis organism: unspecified organism Qualified Code(s): J20.9 - Acute bronchitis, unspecified (2) Acute respiratory failure with hypoxia SNOMED Code(s): 59425492, 219319356 ICD Code: J96.01 - ACUTE RESPIRATORY FAILURE WITH HYPOXIA Status: Acute (3) Bipolar II disorder SNOMED Code(s): 63926097 ICD Code: F31.81 - BIPOLAR II DISORDER Status: Chronic (4) PTSD (post-traumatic stress disorder) SNOMED Code(s): 76948214 ICD Code: F43.10 - POST-TRAUMATIC STRESS DISORDER, UNSPECIFIED Status: Chronic - Patient Summary/Data Consults: Consultations 09/26/17 12:09 INFORMATION OPERATOR Evaluation and Treatment [CONS] Routine Please Evaluate and Treat INFORMATION OPERATOR Reason for Consult: aspiration This query below is only for informational purposes and is not editable. Admission Diagnosis/Problem: Aspiration pneumonia Hospital Course: Heather presented to the emergency room with progressive cough, fever and shortness of breath. Workup in the emergency room revealed acute hypoxic respiratory failure with significant oxygen requirement. There is no obvious infiltrate noted on chest x-ray but there was some concern for aspiration pneumonia. She was started on piperacillin/tazobactam, supplemental oxygen, IV fluids and admitted to the hospital. She remained stable overnight but did continue to require significant supplemental oxygen. The morning after admission she did have a speech pathology evaluation. There was no strong evidence for aspiration on this examination. Further discussion with the patient revealed that this sounded more like a bronchitis rather than an aspiration pneumonia. Antibiotics were changed to ceftriaxone and azithromycin. She was not wheezing so we did not initiate steroids. Over the next couple of days she showed slow but steady improvement in her respiratory status. We are able to wean her down from 6 L of oxygen down to 2 L by the time of discharge. She has had a steady improvement in her symptoms. She's been tolerating a regular diet. Laboratory studies other than some hypokalemia have been unremarkable. Symptomatically she's been improving steadily throughout the course of the hospital stay. The plan is for her to complete 2 additional doses of a azithromycin and 5 additional doses of cefdinir after hospital discharge. No other medication changes were made. She will be contacting her primary care provider early next week if symptoms do not continue to improve. - Patient Instructions Diet: Regular Diet as Tolerated Activity: As Tolerated Showering/Bathing: May Shower Notify Provider of: Fever, Increased Pain, Nausea and/or Vomiting Other/Special Instructions: 1. You were in the hospital for management of acute bronchitis with acute hypoxic respiratory failure. Your symptoms and condition have been improving with anabiotic therapy. You should continue to use your supplemental oxygen 24 hours per day until your oxygen numbers improve and remain above 90% without the oxygen. This may take several more days. I do recommend additional antibiotics as outlined below: --Azithromycin 500 mg tablet, take 1 tablet twice daily for 2 doses. Your next dose is due tomorrow morning. --Cefdinir 300 mg capsule, take 1 capsule twice daily for 5 doses. Your next dose is due tonight. 2. Resume your other home medications as previously prescribed. 3. Please seek medical attention if you develop fever greater than 101, have acute onset of shortness of breath or if you develop chest pain/pressure. - Discharge Plan Prescriptions/Med Rec: Azithromycin 500 mg PO DAILY #2 tablet Cefdinir [Omnicef] 300 mg PO BID #5 cap Home Medications: Home Meds ALPRAZolam [Xanax] 2 mg PO TID 05/22/14 [History] Cholecalciferol (Vitamin D3) [Vitamin D3] 2,000 unit PO DAILY 05/22/14 [History] ClonazePAM [KlonoPIN] 2 mg PO BEDTIME 05/22/14 [History] Cyanocobalamin (Vitamin B12) [Vitamin B12] 1,000 mcg IJ ASDIRECTED 05/22/14 [ History] Cyclobenzaprine [Flexeril] 10 mg PO Q8HR PRN 05/22/14 [History] FLUoxetine [PROzac] 80 mg PO DAILY 05/22/14 [History] Ferrous Fumarate-Vit [id number] 1 tab PO DAILY 05/22/14 [History] Fluticasone Propionate [Flonase] 1 spray TOP ASDIRECTED PRN 05/22/14 [History] Folic Acid 1 mg PO DAILY 05/22/14 [History] Furosemide [Lasix] 80 mg PO BID 05/22/14 [History] Meclizine [Antivert] 25 mg PO TID PRN 05/22/14 [History] Mirtazapine [Remeron] 15 mg PO DAILY@1200 05/22/14 [History] Omeprazole [Prilosec] 40 mg PO DAILY 05/22/14 [History] Polyethylene Glycol 3350 [MiraLAX] 17 gm PO DAILY 05/22/14 [History] Reti-A 0.1% 1 dose TOP BEDTIME 05/22/14 [History] Spironolactone [Aldactone] 100 mg PO DAILY 05/22/14 [History] Sucralfate [Carafate] 0.5 gm PO Q8HR 05/22/14 [History] Thiamine Mononitrate [Vitamin B-1] 100 mg PO BEDTIME 05/22/14 [History] Triamcinolone Acetonide [Kenalog 0.1% Crm] 80 gm .XX ASDIRECTED 05/22/14 [ History] Vitamin B Complex [B Complex] 1 tab PO DAILY 05/22/14 [History] Zolpidem [Ambien] 20 mg PO BEDTIME PRN 05/22/14 [History] buPROPion HCl [Wellbutrin Xl] 300 mg PO DAILY 05/22/14 [History] fentaNYL [Duragesic] 50 mcg TD Q48H 05/22/14 [History] fentaNYL [Duragesic] 100 mcg TD Q48H 05/22/14 [History] lamoTRIgine [Lamictal] 200 mg PO DAILY 05/22/14 [History] oxyCODONE HCl [Oxycodone HCl] 20 mg PO Q6HR PRN 05/22/14 [History] Mirtazapine [Remeron] 30 mg PO BEDTIME 09/25/15 [History] Aspirin 325 mg PO DAILY 07/23/16 [History] Linaclotide [Linzess] 145 mcg PO DAILY 07/23/16 [History] Sennosides [Senna] 8.6 oz PO DAILY 07/23/16 [History] Albuterol [Ventolin HFA] 2 puff INH Q4H PRN 09/26/17 [History] Dextroamphetamine/Amphetamine [Adderall 20 mg Tablet] 1 tab PO BID 09/26/17 [ History] Ferrous Fumarate/Vitamin C [Vitron-C] 1 tab PO DAILY 09/26/17 [History] Magnesium Oxide [Magnesium] 1 cap PO DAILY 09/26/17 [History] Melatonin 2 tab PO DAILY 09/26/17 [History] Naproxen 1 tab PO DAILY 09/26/17 [History] Papaya [Papaya Enzyme] 1 tab PO DAILY 09/26/17 [History] Potassium Chloride [Klor-Con] 1 tab PO DAILY 09/26/17 [History] Azithromycin 500 mg PO DAILY #2 tablet 09/30/17 [Rx] Cefdinir [Omnicef] 300 mg PO BID #5 cap 09/30/17 [Rx] Patient Handouts: Cefdinir capsules, Azithromycin tablets, Acute Bronchitis, Adult Referrals: Raffy Whalen MD [Primary Care Provider] - (f/u as needed after the hospital stay ) - Discharge Summary/Plan Comment DC Time >30 min.: No (25) - Patient Data Vitals - Most Recent: Last Vital Signs Temp 35.8 C 09/30/17 07:00 Pulse 74 09/30/17 11:33 Resp 16 09/30/17 07:00 BP 147/97 H 09/30/17 10:31 Pulse Ox 95 09/30/17 11:33 Weight - Most Recent: 69.037 kg I&O - Last 24 hours: Intake & Output 09/29/17 09/30/17 09/30/17 22:59 06:59 14:59 Intake Total 530 2049 1026 Output Total 1000 Balance 530 1049 1026 Lab Results - Last 24 hrs: Laboratory Results - last 24 hr 09/30/17 09/30/17 Range/Units 05:00 05:00 WBC 4.0 L (4.5-11.0) K/uL RBC 3.63 (3.30-5.50) M/uL Hgb 10.5 L (12.0-15.0) g/dL Hct 34.2 L (36.0-48.0) % MCV 94 (80-98) fL MCH 29 (27-31) pg MCHC 31 L (32-36) % Plt Count 241 (150-400) K/uL Sodium 143 (140-148) mmol/L Potassium 4.1 (3.6-5.2) mmol/L Chloride 103 (100-108) mmol/L Carbon Dioxide 35 H (21-32) mmol/L Anion Gap 9.1 (5.0-14.0) mmol/L BUN 9 (7-18) mg/dL Creatinine 0.8 (0.6-1.0) mg/dL Est Cr Clr Drug Dosing 80.62 mL/min Estimated GFR (MDRD) > 60 (>60) Glucose 97 (74-106) mg/dL Calcium 8.7 (8.5-10.1) mg/dL Med Orders - Current: Current Medications Acetaminophen (Tylenol) 650 mg PO Q4H PRN PRN Reason: Pain/Fever Last Admin: 09/27/17 17:33 Dose: 650 mg Albuterol (Proventil Neb Soln) 2.5 mg NEB Q4H PRN PRN Reason: Dyspnea Last Admin: 09/27/17 03:03 Dose: 2.5 mg Albuterol/Ipratropium (Duoneb 3.0-0.5 Mg/3 Ml) 3 ml NEB QIDRT [facility] Last Admin: 09/30/17 11:33 Dose: 3 ml Alprazolam (Xanax) 2 mg PO TID [facility] Last Admin: 09/30/17 08:25 Dose: 2 mg Amphetamine/Dextroamphetamine (Adderall) 20 mg PO BID@0800,1400 [facility] Last Admin: 09/30/17 07:34 Dose: 20 mg Aspirin (Ecotrin) 325 mg PO DAILY [facility] Last Admin: 09/30/17 08:16 Dose: 325 mg Azithromycin (Zithromax) 500 mg PO DAILY [facility] Last Admin: 09/30/17 08:21 Dose: 500 mg Benzocaine/Menthol (Cepacol Sore Throat) 1 lozenge MUCMEM Q2H PRN PRN Reason: Sore Throat Last Admin: 09/28/17 13:21 Dose: 1 gill Benzonatate (Tessalon Perles) 100 mg PO TID PRN PRN Reason: Cough Last Admin: 09/27/17 20:40 Dose: 100 mg Bupropion HCl (Wellbutrin Xl) 300 mg PO DAILY [facility] Last Admin: 09/30/17 08:24 Dose: 300 mg Cholecalciferol (Vitamin D3) 2,000 units PO DAILY [facility] Last Admin: 09/30/17 08:18 Dose: 2,000 units Clonazepam (Klonopin) 2 mg PO BEDTIME [facility] Last Admin: 09/29/17 21:57 Dose: 2 mg Cyanocobalamin (Vitamin B12) 1,000 mcg IM Sa@0900 [facility] Cyclobenzaprine HCl (Flexeril) 10 mg PO Q8H PRN PRN Reason: Muscle Spasm Enoxaparin Sodium (Lovenox) 40 mg SUBCUT Q24H [facility] Last Admin: 09/29/17 15:44 Dose: 40 mg Fentanyl (Duragesic) 50 mcg TRDERM Q48H [facility] Last Admin: 09/29/17 08:49 Dose: 50 mcg Fentanyl (Duragesic) 100 mcg TRDERM Q48H [facility] Last Admin: 09/29/17 08:49 Dose: 100 mcg Fluoxetine HCl (Prozac) 80 mg PO DAILY [facility] Last Admin: 09/30/17 08:24 Dose: 80 mg Fluticasone Propionate (Flonase) 0 gm NASBOTH ASDIRECTED PRN PRN Reason: Allergies Folic Acid (Folic Acid) 1 mg PO DAILY [facility] Last Admin: 09/30/17 08:17 Dose: 1 mg Furosemide (Lasix) 80 mg PO BIDDIURETIC [facility] Last Admin: 09/30/17 07:36 Dose: 80 mg Ceftriaxone Sodium 2 gm/ (Sodium Chloride) 50 mls @ 100 mls/hr IV Q24H [facility] Last Admin: 09/29/17 15:43 Dose: 100 mls/hr Lactated Ringer's (Ringers, Lactated) 1,000 mls @ 125 mls/hr IV ASDIRECTED [facility] Last Admin: 09/30/17 03:11 Dose: 125 mls/hr Iron/Vitamin C (Vitron-C) 1 tab PO DAILY [facility] Last Admin: 09/30/17 08:20 Dose: 1 tab Lamotrigine (Lamotrigine) 200 mg PO DAILY [facility] Last Admin: 09/30/17 08:23 Dose: 200 mg Lorazepam (Ativan) 1 mg IV Q2H PRN PRN Reason: Cough Last Admin: 09/27/17 04:45 Dose: 1 mg Magnesium Oxide (Magnesium Oxide) 400 mg PO DAILY [facility] Last Admin: 09/30/17 08:19 Dose: 400 mg Meclizine HCl (Antivert) 25 mg PO TID PRN PRN Reason: Dizziness Melatonin (Melatonin) 21 mg PO BEDTIME [facility] Last Admin: 09/29/17 21:57 Dose: 21 mg Mirtazapine (Remeron) 15 mg PO DAILY@1200 [facility] Last Admin: 09/29/17 13:45 Dose: 15 mg Mirtazapine (Remeron) 30 mg PO BEDTIME [facility] Last Admin: 09/29/17 21:57 Dose: 30 mg Non-Formulary Medication (Linaclotide [Linzess]) 145 mcg PO DAILY [facility] Last Admin: 09/30/17 08:24 Dose: Not Given Non-Formulary Medication (Papaya [Papaya Enzyme]) 1 tab PO DAILY [facility] Last Admin: 09/30/17 08:24 Dose: Not Given Non-Formulary Medication (Reti-A 0.1%) 1 dose TOP BEDTIME [facility] Last Admin: 09/29/17 21:59 Dose: Not Given Fentanyl Patch Check 0 each TOP BID [facility] Last Admin: 09/30/17 08:22 Dose: Not Given Oxycodone HCl (Oxycodone) 20 mg PO Q6H PRN PRN Reason: Pain Last Admin: 09/30/17 03:07 Dose: 20 mg Pantoprazole Sodium (Protonix) 40 mg PO ACBREAKFAST [facility] Last Admin: 09/30/17 07:35 Dose: 40 mg Polyethylene Glycol (Miralax) 17 gm PO DAILY [facility] Last Admin: 09/30/17 08:22 Dose: Not Given Potassium Chloride (Klor-Con M20) 40 meq PO DAILY@0800 [facility] Last Admin: 09/30/17 07:36 Dose: 40 meq Senna (Senna) 8.6 mg PO DAILY [facility] Last Admin: 09/30/17 08:18 Dose: 8.6 mg Sodium Chloride (Saline Flush) 10 ml FLUSH ASDIRECTED PRN PRN Reason: Keep Vein Open Spironolactone (Aldactone) 100 mg PO DAILY [facility] Last Admin: 09/29/17 08:45 Dose: 100 mg Sucralfate (Carafate) 0.5 gm PO Q8HR [facility] Last Admin: 09/30/17 05:09 Dose: 0.5 gm Thiamine HCl (Vitamin B-1) 100 mg PO BEDTIME [facility] Last Admin: 09/29/17 22:02 Dose: 100 mg Triamcinolone Acetonide (Triamcinolone Acetonide 0.1% Crm) 0 gm TOP DAILY [facility] Last Admin: 09/30/17 08:27 Dose: 1 applic Vitamin B Complex (Vitamin B Complex) 1 each PO DAILY [facility] Last Admin: 09/30/17 08:19 Dose: 1 each Zolpidem Tartrate (Ambien) 20 mg PO BEDTIME PRN PRN Reason: Insomnia Discontinued Medications Albuterol (Proventil Neb Soln) 2.5 mg NEB ONETIME ONE Stop: 09/26/17 07:14 Last Admin: 09/26/17 07:29 Dose: 2.5 mg Albuterol (Proventil Neb Soln) 2.5 mg NEB ONETIME ONE Stop: 09/26/17 10:15 Last Admin: 09/26/17 10:47 Dose: 2.5 mg Albuterol (Ventolin Hfa) 0 gm INH Q4H PRN PRN Reason: sob Albuterol/Ipratropium (Duoneb 3.0-0.5 Mg/3 Ml) 3 ml NEB ONETIME ONE Stop: 09/26/17 06:40 Last Admin: 09/27/17 14:46 Dose: 3 ml Albuterol/Ipratropium (Duoneb 3.0-0.5 Mg/3 Ml) 3 ml NEB QID PRN PRN Reason: Shortness Of Breath/wheezing Last Admin: 09/27/17 05:01 Dose: 3 ml Bacitracin (Bacitracin Oint 1 Gm) 1 dose TOP ONETIME ONE Stop: 09/26/17 18:52 Last Admin: 09/26/17 19:28 Dose: 1 dose Benzonatate (Tessalon Perles) 200 mg PO ONETIME ONE Stop: 09/26/17 08:40 Last Admin: 09/26/17 09:37 Dose: 200 mg Sodium Chloride (Normal Saline) 1,000 mls @ 250 mls/hr IV ASDIRECTED [facility] Last Admin: 09/26/17 10:47 Dose: 250 mls/hr Clindamycin Phosphate 600 mg/ (Sodium Chloride) 54 mls @ 100 mls/hr IV ONETIME ONE Stop: 09/26/17 11:17 Last Admin: 09/26/17 10:47 Dose: 100 mls/hr Clindamycin Phosphate 600 mg/ (Sodium Chloride) 54 mls @ 100 mls/hr IV Q8H [facility] Last Admin: 09/26/17 16:35 Dose: Not Given Piperacillin/Tazobactam/ (Dextrose 3.375 gm/ Premix) 50 mls @ 100 mls/hr IV Q6H [facility] Last Admin: 09/27/17 09:14 Dose: 100 mls/hr Potassium Chloride 20 meq/Lidocaine HCl 2 ml/ Sodium Chloride 112 mls @ 56 mls/ hr IV ONETIME ONE Stop: 09/27/17 10:59 Last Admin: 09/27/17 10:40 Dose: 56 mls/hr Lactated Ringer's (Ringers, Lactated) 500 mls @ 0 mls/hr IV ASDIRECTED [facility] Last Admin: 09/29/17 22:04 Dose: 500 mls/hr Sodium Chloride (Normal Saline) 500 mls @ 500 mls/hr IV ASDIRECTED [facility] Stop: 09/30/17 10:16 Last Admin: 09/30/17 09:20 Dose: 500 mls/hr Lorazepam (Ativan) 1 mg IVPUSH ONETIME ONE Stop: 09/26/17 06:36 Last Admin: 09/26/17 06:42 Dose: 1 mg Lorazepam (Ativan) 0.5 mg IVPUSH ONETIME ONE Stop: 09/26/17 07:33 Last Admin: 09/26/17 08:05 Dose: 0.5 mg Methylprednisolone Sodium Succinate (Solu-Medrol) 125 mg IVPUSH ONETIME ONE Stop: 09/26/17 07:13 Last Admin: 09/26/17 07:22 Dose: 125 mg Potassium Chloride (Klor-Con M20) 20 meq PO DAILY@0800 [facility] Potassium Chloride (Klor-Con M20) 40 meq PO ONETIME ONE Stop: 09/27/17 18:01 Last Admin: 09/27/17 17:07 Dose: 40 meq Potassium Chloride (Klor-Con M20) 40 meq PO ONETIME ONE Stop: 09/29/17 09:01 Last Admin: 09/29/17 08:41 Dose: 40 meq Potassium Chloride (Klor-Con M20) 40 meq PO ONETIME ONE Stop: 09/29/17 21:01 Last Admin: 09/29/17 21:57 Dose: 40 meq Sodium Chloride (Saline Flush) 10 ml FLUSH ASDIRECTED PRN PRN Reason: Keep Vein Open Last Admin: 09/26/17 06:47 Dose: 10 ml - Exam Quality Assessment: Reports: Supplemental Oxygen General: Reports: Alert, Oriented, Cooperative, No Acute Distress Neck: Reports: Supple Lungs: Reports: Normal Respiratory Effort GI/Abdominal Exam: No Distention Extremities: No Pedal Edema Psy/Mental Status: Reports: Alert, Normal Affect
[2017-10-02] MEDS ORDERED: Cyanocobalamin (Vitamin B12) 1,000 MCG/ML SDV IM SCH (09:00)
== END 2017-09-30 13:04 | disposition home or self-care (01) | DRG 202 ==
LOC: JP.ED 06:14 → JP.MS 11:39 → OBSVTOIN 09-27 12:29
PROVIDERS: ADMIT Family Medicine; ATTEND Internal Medicine
DX: J69.0 Pneumonitis due to inhalation of food and vomit (principal); J20.9 Acute bronchitis, unspecified; F31.81 Bipolar II disorder; J98.01 Acute bronchospasm; F32.9 Major depressive disorder, single episode, unspecified; F98.8 Other specified behavioral and emotional disorders with onset usually occurring in childhood and adolescence; I50.9 Heart failure, unspecified; J45.909 Unspecified asthma, uncomplicated; Z88.8 Allergy status to other drugs, medicaments and biological substances; Z79.899 Other long term (current) drug therapy; Z98.84 Bariatric surgery status; Z98.0 Intestinal bypass and anastomosis status; F43.10 Post-traumatic stress disorder, unspecified; Z86.14 Personal history of Methicillin resistant Staphylococcus aureus infection; Z99.81 Dependence on supplemental oxygen; G89.29 Other chronic pain; Z88.5 Allergy status to narcotic agent; Z91.048 Other nonmedicinal substance allergy status
CPT/HCPCS: 36415 ×2; 36600; 71045 ×2; 71046 ×2; 73502 ×2; 80048; 80053; 80076; 80305; 81001; 82803; 83880; 85025; 85027; 87086; 92610; 93005; 94640 ×7; 94762; 96365; 96375; 96376; 99285 ×2; A9270 ×61; G0480 ×2; J1650 ×2; J2060 ×6; J2543 ×8; J2930 ×2; J3480 ×2; J7030 ×4; J7050 ×4; J7620 ×8; 84132; 87088; 87186; J0696; J7120; S0077

== ENCOUNTER 2018-10-27 01:50 | Emergency (ER) | payer MEDICARE, MEDICAID ==
[2018-10-27 02:18] VITALS: BP 137/70; PULSE 116
[2018-10-27] MEDS ORDERED: fentaNYL 100 MCG/2 ML SDV IM ONE (02:41)
[2018-10-27] MEDS ORDERED: Ondansetron 4 MG/2 ML SDV IM ONE (02:42)
[2018-10-27] MEDS ORDERED: fentaNYL 100 MCG/HR Transdermal Patch TRDERM SCH (02:45)
--- NOTE | 2018-10-27 03:15 | EDM.PDOC ---
ED HPI GENERAL MEDICAL PROBLEM - General Chief Complaint: Drug or Alcohol Abuse Stated Complaint: WITHDRAWLS Time Seen by Provider: 10/27/18 02:40 Source of Information: Reports: Patient History Limitations: Reports: No Limitations - History of Present Illness INITIAL COMMENTS - FREE TEXT/NARRATIVE: This patient comes in because of opiate withdrawal. She has chronic hip pain and uses fentanyl 100 mcg/24hr patch. She said that early in the morning yesterday the patch fell off so it's been off for about 24 hours now. She is having really bad nausea and abdominal cramps. right hip Pain Score (Numeric/FACES): 9 - Related Data Allergies Allergy/AdvReac Type Severity Reaction Status Date / Time codeine Allergy Rash Verified 10/27/18 02:14 metal Allergy Rash Uncoded 10/27/18 02:14 Home Meds: Home Meds ALPRAZolam [Xanax] 2 mg PO TID 05/22/14 [History] Cholecalciferol (Vitamin D3) [Vitamin D3] 2,000 unit PO DAILY 05/22/14 [History] ClonazePAM [KlonoPIN] 2 mg PO BEDTIME 05/22/14 [History] Cyanocobalamin (Vitamin B12) [Vitamin B12] 1,000 mcg IJ ASDIRECTED 05/22/14 [ History] Cyclobenzaprine [Flexeril] 10 mg PO Q8HR PRN 05/22/14 [History] FLUoxetine [PROzac] 80 mg PO DAILY 05/22/14 [History] Ferrous Fumarate-Vit [id number] 1 tab PO DAILY 05/22/14 [History] Fluticasone Propionate [Flonase] 1 spray TOP ASDIRECTED PRN 05/22/14 [History] Folic Acid 1 mg PO DAILY 05/22/14 [History] Furosemide [Lasix] 80 mg PO BID 05/22/14 [History] Meclizine [Antivert] 25 mg PO TID PRN 05/22/14 [History] Mirtazapine [Remeron] 15 mg PO DAILY@1200 05/22/14 [History] Omeprazole [Prilosec] 40 mg PO DAILY 05/22/14 [History] Polyethylene Glycol 3350 [MiraLAX] 17 gm PO DAILY 05/22/14 [History] Reti-A 0.1% 1 dose TOP BEDTIME 05/22/14 [History] Spironolactone [Aldactone] 100 mg PO DAILY 05/22/14 [History] Sucralfate [Carafate] 0.5 gm PO Q8HR 05/22/14 [History] Thiamine Mononitrate [Vitamin B-1] 100 mg PO BEDTIME 05/22/14 [History] Triamcinolone Acetonide [Kenalog 0.1% Crm] 80 gm .XX ASDIRECTED 05/22/14 [ History] Vitamin B Complex [B Complex] 1 tab PO DAILY 05/22/14 [History] Zolpidem [Ambien] 20 mg PO BEDTIME PRN 05/22/14 [History] buPROPion HCl [Wellbutrin Xl] 300 mg PO DAILY 05/22/14 [History] fentaNYL [Duragesic] 50 mcg TD Q48H 05/22/14 [History] fentaNYL [Duragesic] 100 mcg TD Q48H 05/22/14 [History] lamoTRIgine [Lamictal] 200 mg PO DAILY 05/22/14 [History] oxyCODONE HCl [Oxycodone HCl] 20 mg PO Q6HR PRN 05/22/14 [History] Mirtazapine [Remeron] 30 mg PO BEDTIME 09/25/15 [History] Aspirin 325 mg PO DAILY 07/23/16 [History] Linaclotide [Linzess] 145 mcg PO DAILY 07/23/16 [History] Sennosides [Senna] 8.6 oz PO DAILY 07/23/16 [History] Albuterol [Ventolin HFA] 2 puff INH Q4H PRN 09/26/17 [History] Dextroamphetamine/Amphetamine [Adderall 20 mg Tablet] 1 tab PO BID 09/26/17 [ History] Ferrous Fumarate/Vitamin C [Vitron-C] 1 tab PO DAILY 09/26/17 [History] Magnesium Oxide [Magnesium] 1 cap PO DAILY 09/26/17 [History] Melatonin 2 tab PO DAILY 09/26/17 [History] Naproxen 1 tab PO DAILY 09/26/17 [History] Papaya [Papaya Enzyme] 1 tab PO DAILY 09/26/17 [History] Potassium Chloride [Klor-Con] 1 tab PO DAILY 09/26/17 [History] Azithromycin 500 mg PO DAILY #2 tablet 09/30/17 [Rx] Cefdinir [Omnicef] 300 mg PO BID #5 cap 09/30/17 [Rx] Past Medical History HEENT History: Reports: Impaired Vision Cardiovascular History: Reports: Heart Failure Respiratory History: Reports: Asthma Gastrointestinal History: Reports: GERD 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 History: Reports: Renal Calculus 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 wearing a sling. Chronic left hip problems secondary to multiple surgeries Neurological History: Reports: Brain Injury, Seizure Psychiatric History: Reports: ADD, Addiction, Bipolar, Depression Hematologic History: Reports: Other (See Below) Other Hematologic History: blood type A Pos, anti K - Infectious Disease History Infectious Disease History: Reports: Chicken Pox, MRSA Other Infectious Disease History: MRSA right ankle, left hip - Past Surgical History GI Surgical History: Reports: Appendectomy, Cholecystectomy, Other (See Below) Other GI Surgeries/Procedures: RNY Female Surgical History: Reports: Hysterectomy, Oophorectomy Musculoskeletal Surgical History: Reports: Hip Replacement Other Musculoskeletal Surgeries/Procedures:: broken back and hips. Surgery to both. Social & Family History - Family History Family Medical History: Noncontributory - Tobacco Use Smoking Status *Q: Never Smoker - Caffeine Use Caffeine Use: Reports: Soda - Recreational Drug Use Recreational Drug Use: No ED ROS GENERAL - Review of Systems Review Of Systems: ROS reveals no pertinent complaints other than HPI. ED EXAM, GENERAL - Physical Exam Exam: See Below Exam Limited By: No Limitations General Appearance: Alert, WD/WN, Moderate Distress Eye Exam: Bilateral Eye: Normal Inspection Head: Atraumatic Respiratory/Chest: No Respiratory Distress Cardiovascular: Regular Rate, Rhythm GI/Abdominal: Non-Tender Extremities: Normal Inspection Neurological: Other (This patient appears to be in quite a bit of distress. She is rocking back and forth on the stretcher and she is having dry heaves) Course - Vital Signs Last Recorded V/S: Last Vital Signs Temp 36.4 C 10/27/18 02:18 Pulse 116 H 10/27/18 02:18 Resp 20 10/27/18 02:18 BP 137/70 10/27/18 02:18 Pulse Ox 97 10/27/18 02:18 - Orders/Labs/Meds Orders: Active Orders 24 hr Category Date Time Status fentaNYL [Duragesic] Med 10/27/18 02:45 Active 100 mcg TRDERM Q72H Medication Orders Fentanyl (Duragesic) 100 mcg TRDERM Q72H [facility] Last Admin: 10/27/18 03:03 Dose: 100 mcg Meds: Medications Generic Name Dose Route Start Last Admin Trade Name Freq PRN Reason Stop Dose Admin Fentanyl 100 mcg 10/27/18 02:45 10/27/18 03:03 Duragesic TRDERM 100 mcg Q72H [facility] Administration Discontinued Medications Generic Name Dose Route Start Last Admin Trade Name Freq PRN Reason Stop Dose Admin Fentanyl 100 mcg 10/27/18 02:41 10/27/18 02:49 Sublimaze IM 10/27/18 02:42 100 mcg ONETIME ONE Administration Ondansetron HCl 4 mg 10/27/18 02:42 10/27/18 02:48 Zofran IM 10/27/18 02:43 4 mg ONETIME ONE Administration - Re-Assessments/Exams Free Text/Narrative Re-Assessment/Exam: 10/27/18 03:12 She received fentanyl 100 g IM and a 100 g per 24-hour patch was placed. She also received Zofran 4 mg IM. 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 - My Orders Last 24 Hours: My Active Orders 10/27/18 02:45 fentaNYL [Duragesic] 100 mcg TRDERM Q72H - Assessment/Plan Last 24 Hours: My Active Orders 10/27/18 02:45 fentaNYL [Duragesic] 100 mcg TRDERM Q72H
== END 2018-10-27 03:39 | disposition home or self-care (01) ==
LOC: JP.ED 01:50
DX: F11.23 Opioid dependence with withdrawal (principal); I50.9 Heart failure, unspecified; J45.909 Unspecified asthma, uncomplicated; K21.9 Gastro-esophageal reflux disease without esophagitis; F41.9 Anxiety disorder, unspecified; Z88.5 Allergy status to narcotic agent; Z91.048 Other nonmedicinal substance allergy status; Z79.899 Other long term (current) drug therapy; Z79.82 Long term (current) use of aspirin; Z87.442 Personal history of urinary calculi
CPT/HCPCS: 96372; 99283; A9270; J2405; J3010

== ENCOUNTER 2018-11-15 16:03 | Emergency (ER) | payer MEDICARE, MEDICAID ==
[2018-11-15 16:29] VITALS: BP 107/64; PULSE 80
[2018-11-15] MEDS ORDERED: Meclizine 25 MG Tab PO ONE (16:48)
--- NOTE | 2018-11-15 16:55 | EDM.PDOC ---
ED HPI GENERAL MEDICAL PROBLEM - General Chief Complaint: General Stated Complaint: ILLNESS Time Seen by Provider: 11/15/18 16:40 Source of Information: Reports: Patient, Old Records, RN History Limitations: Reports: No Limitations - History of Present Illness INITIAL COMMENTS - FREE TEXT/NARRATIVE: 43 yo female patient of Dr. Whalen's was seen in urgent care today by Yue Babcock who referred Heather to the ER. Heather was felt to be unstable with reported low BP and decreased LOC. Dr. Whalen was not consulted before she was sent over. Heather in the ER states she was just there for a follow up on a presumed ear infection, she was out of her meds and wanted a refill. Has decreased hearing in that ear chronically. Was told once she had a hole in her ear that was not healing and never had an ENT referral. Has had drainage in the past from that ear. Has been dizzy lately presumably due to that ear issue per her report. Onset: Gradual Duration: Day(s):, Waxing/Waning Location: Reports: Head, Other (R ear) Quality: Reports: Dull Severity: Mild Improves with: Reports: Other (unknown) Worsens with: Reports: Other (unknown) Context: Reports: Other (see HPI) Associated Symptoms: Reports: No Other Symptoms Treatments [employer]ER: Reports: Other (see below) (Has been taking Cipro drops until recently) Right Ear Pain Score (Numeric/FACES): 5 - Related Data Allergies Allergy/AdvReac Type Severity Reaction Status Date / Time codeine Allergy Rash Verified 11/15/18 16:24 metal Allergy Rash Uncoded 11/15/18 16:24 Home Meds: Home Meds ALPRAZolam [Xanax] 2 mg PO TID 05/22/14 [History] Cholecalciferol (Vitamin D3) [Vitamin D3] 2,000 unit PO DAILY 05/22/14 [History] ClonazePAM [KlonoPIN] 2 mg PO BEDTIME 05/22/14 [History] Cyanocobalamin (Vitamin B12) [Vitamin B12] 1,000 mcg IJ ASDIRECTED 05/22/14 [ History] Cyclobenzaprine [Flexeril] 10 mg PO Q8HR PRN 05/22/14 [History] FLUoxetine [PROzac] 80 mg PO DAILY 05/22/14 [History] Ferrous Fumarate-Vit O441-126 1 tab PO DAILY 05/22/14 [History] Fluticasone Propionate [Flonase] 1 spray TOP ASDIRECTED PRN 05/22/14 [History] Folic Acid 1 mg PO DAILY 05/22/14 [History] Furosemide [Lasix] 80 mg PO BID 05/22/14 [History] Meclizine [Antivert] 25 mg PO TID PRN 05/22/14 [History] Mirtazapine [Remeron] 15 mg PO DAILY@1200 05/22/14 [History] Omeprazole [Prilosec] 40 mg PO DAILY 05/22/14 [History] Polyethylene Glycol 3350 [MiraLAX] 17 gm PO DAILY 05/22/14 [History] Reti-A 0.1% 1 dose TOP BEDTIME 05/22/14 [History] Spironolactone [Aldactone] 100 mg PO DAILY 05/22/14 [History] Sucralfate [Carafate] 0.5 gm PO Q8HR 05/22/14 [History] Thiamine Mononitrate [Vitamin B-1] 100 mg PO BEDTIME 05/22/14 [History] Triamcinolone Acetonide [Kenalog 0.1% Crm] 80 gm .XX ASDIRECTED 05/22/14 [ History] Vitamin B Complex [B Complex] 1 tab PO DAILY 05/22/14 [History] Zolpidem [Ambien] 20 mg PO BEDTIME PRN 05/22/14 [History] buPROPion HCl [Wellbutrin Xl] 300 mg PO DAILY 05/22/14 [History] fentaNYL [Duragesic] 100 mcg TD Q48H 05/22/14 [History] lamoTRIgine [Lamictal] 200 mg PO DAILY 05/22/14 [History] oxyCODONE HCl [Oxycodone HCl] 20 mg PO Q6HR PRN 05/22/14 [History] Mirtazapine [Remeron] 30 mg PO BEDTIME 09/25/15 [History] Aspirin 325 mg PO DAILY 07/23/16 [History] Linaclotide [Linzess] 145 mcg PO DAILY 07/23/16 [History] Sennosides [Senna] 8.6 oz PO DAILY 07/23/16 [History] Albuterol [Ventolin HFA] 2 puff INH Q4H PRN 09/26/17 [History] Dextroamphetamine/Amphetamine [Adderall 20 mg Tablet] 1 tab PO BID 09/26/17 [ History] Ferrous Fumarate/Vitamin C [Vitron-C] 1 tab PO DAILY 09/26/17 [History] Magnesium Oxide [Magnesium] 1 cap PO DAILY 09/26/17 [History] Melatonin 2 tab PO DAILY 09/26/17 [History] Naproxen 1 tab PO DAILY 09/26/17 [History] Papaya [Papaya Enzyme] 1 tab PO DAILY 09/26/17 [History] Potassium Chloride [Klor-Con] 1 tab PO DAILY 09/26/17 [History] Azithromycin 500 mg PO DAILY #2 tablet 09/30/17 [Rx] Cefdinir [Omnicef] 300 mg PO BID #5 cap 09/30/17 [Rx] Ciprofloxacin/Dexamethasone [Ciprodex Otic Susp] 4 drop TOP BID 11/15/18 [ History] Past Medical History HEENT History: Reports: Impaired Vision, Other (See Below) Other HEENT History: recent r ear infection Cardiovascular History: Reports: Heart Failure Respiratory History: Reports: Asthma Gastrointestinal History: Reports: GERD 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 History: Reports: Renal Calculus 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 wearing a sling. Chronic left hip problems secondary to multiple surgeries Neurological History: Reports: Brain Injury, Seizure Psychiatric History: Reports: ADD, Addiction, Bipolar, Depression Hematologic History: Reports: Other (See Below) Other Hematologic History: blood type A Pos, anti K - Infectious Disease History Infectious Disease History: Reports: Chicken Pox Other Infectious Disease History: MRSA right ankle, left hip - Past Surgical History GI Surgical History: Reports: Appendectomy, Cholecystectomy, Other (See Below) Other GI Surgeries/Procedures: RNY Female Surgical History: Reports: Hysterectomy, Oophorectomy Musculoskeletal Surgical History: Reports: Hip Replacement Other Musculoskeletal Surgeries/Procedures:: broken back and hips. Surgery to both. Social & Family History - Family History Family Medical History: Noncontributory - Tobacco Use Smoking Status *Q: Former Smoker Years of Tobacco use: 10 Packs/Tins Daily: 0.5 Used Tobacco, but Quit: Yes Month/Year Tobacco Last Used: September 2012 Second Hand Smoke Exposure: No - Caffeine Use Caffeine Use: Reports: Soda - Alcohol Use Days Per Week of Alcohol Use: 0 - Recreational Drug Use Recreational Drug Use: No ED ROS GENERAL - Review of Systems Review Of Systems: See Below Constitutional: Reports: No Symptoms HEENT: Reports: Ear Pain (mild, R ear), Hearing Loss (R ear). Denies: Rhinitis Respiratory: Reports: No Symptoms Cardiovascular: Reports: No Symptoms GI/Abdominal: Reports: No Symptoms : Reports: No Symptoms Musculoskeletal: Reports: No Symptoms Skin: Reports: No Symptoms Neurological: Reports: Dizziness (waxing and waning) ED EXAM, GENERAL - Physical Exam Exam: See Below Exam Limited By: No Limitations General Appearance: Alert, WD/WN, No Apparent Distress Eye Exam: Bilateral Eye: Normal Inspection Ears: Normal External Exam, Normal Canal, Hearing Grossly Normal, Other (TM's normal except the R TM appears to have a perforation, likely chronic.) Ear Exam: Right Ear: TM Perforation, Bilateral Ear: Auricle Normal, Canal Normal Nose: Normal Inspection, No Blood Throat/Mouth: Normal Inspection, Normal Lips, Normal Oropharynx, Normal Voice, No Airway Compromise Head: Atraumatic, Normocephalic Neck: Normal Inspection Respiratory/Chest: No Respiratory Distress, Lungs Clear, Normal Breath Sounds, No Accessory Muscle Use Cardiovascular: Regular Rate, Rhythm, No Edema Extremities: Normal Inspection Neurological: Alert, Oriented, CN II-XII Intact, Normal Cognition, No Motor/ Sensory Deficits Psychiatric: Normal Affect, Normal Mood Skin Exam: Warm, Dry, Intact, Normal Color, No Rash Course - Vital Signs Last Recorded V/S: Last Vital Signs Temp 36.2 C 11/15/18 16:37 Pulse 80 11/15/18 16:37 Resp 19 11/15/18 16:37 BP 107/64 11/15/18 16:37 Pulse Ox 94 L 11/15/18 16:37 - Orders/Labs/Meds Orders: Active Orders 24 hr Category Date Time Status BASIC METABOLIC PANEL,BMP [CHEM] Stat Lab 11/15/18 16:08 Stop Req CBC W/O DIFF,HEMOGRAM [HEME] Stat Lab 11/15/18 16:08 Stop Req DRUG SCREEN, URINE [URCHEM] Stat Lab 11/15/18 16:06 Stop Req ETHANOL BLOOD MEDICAL [CHEM] Stat Lab 11/15/18 16:07 Stop Req Meds: Medications Discontinued Medications Generic Name Dose Route Start Last Admin Trade Name Td PRN Reason Stop Dose Admin Meclizine HCl 25 mg 11/15/18 16:48 Antivert PO 11/15/18 16:49 ONETIME ONE Departure - Departure Time of Disposition: 16:15 Disposition: Home, Self-Care 01 Condition: Good Clinical Impression: Vertigo Ear drum perforation Qualifiers: Laterality: right Qualified Code(s): H72.91 - Unspecified perforation of tympanic membrane, right ear - Discharge Information *PRESCRIPTION DRUG MONITORING PROGRAM REVIEWED*: No *COPY OF PRESCRIPTION DRUG MONITORING REPORT IN PATIENT BLANCA: No Instructions: Vertigo, [id number], Vertigo Referrals: Raffy Whalen MD [Primary Care Provider] - Additional Instructions: Take meclizine 25 mg every 6 hrs as needed for vertigo. Keep water out of the R ear. A referral was placed for you to see an Ear, Nose, and Throat specialist- someone will contact you about an appt time and place. - My Orders Last 24 Hours: My Active Orders 11/15/18 16:06 DRUG SCREEN, URINE [URCHEM] Stat 11/15/18 16:07 ETHANOL BLOOD MEDICAL [CHEM] Stat 11/15/18 16:08 BASIC METABOLIC PANEL,BMP [CHEM] Stat CBC W/O DIFF,HEMOGRAM [HEME] Stat - Assessment/Plan Last 24 Hours: My Active Orders 11/15/18 16:06 DRUG SCREEN, URINE [URCHEM] Stat 11/15/18 16:07 ETHANOL BLOOD MEDICAL [CHEM] Stat 11/15/18 16:08 BASIC METABOLIC PANEL,BMP [CHEM] Stat CBC W/O DIFF,HEMOGRAM [HEME] Stat
== END 2018-11-15 17:08 | disposition home or self-care (01) ==
LOC: JP.ED 16:03
DX: H72.91 Unspecified perforation of tympanic membrane, right ear (principal); R42 Dizziness and giddiness; I50.9 Heart failure, unspecified; K21.9 Gastro-esophageal reflux disease without esophagitis; F32.9 Major depressive disorder, single episode, unspecified; Z90.49 Acquired absence of other specified parts of digestive tract; Z79.899 Other long term (current) drug therapy; Z88.5 Allergy status to narcotic agent; Z88.8 Allergy status to other drugs, medicaments and biological substances; Z87.891 Personal history of nicotine dependence
CPT/HCPCS: 99283; A9270